=== PATIENT | female | born 1970 | race Two or more races ===

== ENCOUNTER 2024-04-07 13:23 | Outpatient (AMB) | payer MEDICAID, SELFPAY ==
[2024-04-07 13:40] VITALS: BP 117/78; PULSE 81; RESP 18; TEMP 35.7; O2SAT 96; BMI 38.9
--- NOTE | 2024-04-07 13:40 | PD.ORTHCLVIS ---
Vital signs 04/07/24 13:40 Height 1.63 m Height Method Stated Weight 102.965 kg Weight Measurement Method Standing Scale BMI 38.9 BP 117/78 Blood Pressure Source Automatic Cuff Blood Pressure Location Left Upper Arm Position Sitting Respiration 18 Pulse 81 Pulse Source Monitor Temp 96.3 F L Temp Source Temporal Artery Scan Pulse Oximetry (%) 96 Oxygen Delivery Method Room Air Med/Allergies Allergies & Medications Allergies No Known Allergies Allergy (Verified 04/07/24 13:44) Medication Reconciliation fluticasone propionate 115 mcg-salmeterol 21 mcg/actuation HFA inhaler (Advair HFA) 2 puff inhalation BID ##0 05/15/13 [History Confirmed 04/07/24] levalbuterol tartrate 45 mcg/actuation aerosol inhaler (Xopenex HFA) 2 puff inhalation Q4-6HRPRN #0 puffs 05/15/13 [History Confirmed 04/07/24] albuterol sulfate 90 mcg/actuation aerosol inhaler 2 puff inhalation Q6H PRN Wheezing 02/19/22 [History Confirmed 04/07/24] docusate sodium 100 mg capsule (Colace) 100 mg PO BID #40 caps 02/20/22 [Rx Confirmed 04/07/24] hydrocodone 5 mg-acetaminophen 325 mg tablet 1 tab PO Q6H PRN pain (scale score 7-10) #20 tabs 02/20/22 [Rx Confirmed 04/07/24] ibuprofen 600 mg tablet 600 mg PO Q8H PRN pain (scale score 4-6) #15 tabs 02/20/22 [Rx Confirmed 04/07/24] Subjective Visit Visit for: new patient Immunization / Flu Flu Vaccine in the Last 12 Months: Yes Flu Vaccine Exclusion Criteria: Already Received History of Present Illness Chief complaint: Bilateral knee pain Patient is a pleasant 53-year-old female with bilateral knee pain. The pain is excruciating is affecting her quality life. She does have a history of diabetes and has an unknown A1c. She reports that she has been doing well with cortisone injections and had multiple in the past. She is also tried Voltaren cream as well as naproxen in the past Review of Systems Review of Systems: All systems negative unless otherwise noted in HPI. Exam Exam Patient is in no acute distress and is cooperative with the examination today. Breathing is nonlabored. In no respiratory distress. Bilateral extremities were evaluated and demonstrates sensation intact to light touch. Palpable pedal pulses are present. No significant edema is present. Bilateral hips were examined. The patient has no pain with log roll of the hips. Internal rotation to 30 degrees and external rotation to 30 degrees is painless. Negative FADIR. The left knee was examined. The left knee is in [varus] alignment. Range of motion from [0-115] degrees. Knee is stable to varus and valgus as well as AP translation with <5mm. Patient has a [negative] McMurrays. There is [no] pain with patellofemoral compression and [no] crepitus noted. The knee is [tender] to palpation [medially]. The right knee was also examined. The right knee is in [varus] alignment. Range of motion from [0-120] degrees. Knee is stable to varus and valgus as well as AP translation with <5mm. Patient has a [negative] McMurrays. There is [no] pain with patellofemoral compression and [no] crepitus noted. The knee is [tender] to palpation [medially]. Assessment and Plan Problem List (1) Degenerative arthritis of knee, bilateral: Status: Acute Plan: Patient is a pleasant 53-year-old male with bilateral knee pain and bilateral knee arthritis. We discussed nonoperative and operative options. I would like to see x-rays to see the severity of the arthritis. She is failed conservative treatment but she is awfully young. We will likely try continued conservative management. Office Procedures GNS Level of Care Nursing/Assessment Patient Status: Initial/New Patient Nursing Assessment/Reassesment: Medication Reconciliation, Update PMH in EMR and Vital Signs Coordination of Care: Complex Care and Chronic Disease 1-5, Education Complex Pt/Fam, Consent,records obtained, informed consent, Lab and Imaging orders, Results/Orders obtained and Staff clarify orders Special Needs: Language special needs New Patient Charge New Patient Point Assignment: [id number] New Patient Point Charge: HEAD OF SALES Level 3 ([id number]) Past Medical History Past Medical History Have you ever been diagnosed with any of the following: Neurological Problems Seizures: No Cardiology Problems Congestive Heart Failure: No Edema: No Cellulitis: No Varicose Veins: No Respiratory Problems Chronic Obstructive Pulmonary Disease (COPD): No (ASTHMA HAS INHALER) Pneumonia: Yes (HOSP 2012) Smoking: No Smoking Exposure: No Stomache/Intestinal Problems Hepatitis: No Gall Bladder Disease: Yes (LAP) Genital/Urinary Problems Renal Disease: No Reproductive Problems Previous Pregnancies: Yes (X4) Musculoskeletal Problems Arthritis: Yes Fractures: Yes (RIGHT HAND HAS METAL) Endocrine Problems Diabetes Mellitus Type 1: No Diabetes Mellitus Type 2: No (PRE DIABETES) Other Problems Hospitalization: Yes ([facility]) Shingles: No Falls: No Blood Transfusions: No Blood Transfusion Reaction: No Anesthesia Reactions: No Chemotherapy: No MRSA: No Chicken Pox: No Measles: No Mumps: No Cancer: No Surgical History Pacemaker: No
== END 2024-04-07 13:58 | disposition home or self-care (01) ==
PROVIDERS: PCP Family Medicine; Referring Provider Family Medicine; Supervising Provider Orthopaedic Surgery Adult Reconstructive Orthopaedic Surgery; Visit Provider Orthopaedic Surgery Adult Reconstructive Orthopaedic Surgery
DX: M17.0 Bilateral primary osteoarthritis of knee (principal); M25.562 Pain in left knee; M25.561 Pain in right knee
CPT/HCPCS: 99203; G0463

== ENCOUNTER 2024-04-24 08:09 | Outpatient (AMB) | payer MEDICAID, SELFPAY ==
[2024-04-24 08:47] VITALS: BP 129/87; PULSE 61; RESP 18; TEMP 36.3; O2SAT 97; BMI 38.9
--- NOTE | 2024-04-24 08:47 | ORTHONT_ITS ---
Vital signs 04/24/24 08:47 Height 1.63 m Height Method Stated Weight 103.447 kg Weight Measurement Method Standing Scale BMI 38.9 BP 129/87 H Blood Pressure Source Automatic Cuff Blood Pressure Location Right Upper Arm Position Sitting Respiration 18 Pulse 61 Pulse Source Monitor Temp 97.3 F Temp Source Temporal Artery Scan Pulse Oximetry (%) 97 Oxygen Delivery Method Room Air Med/Allergies Allergies & Medications Allergies No Known Allergies Allergy (Verified 04/24/24 08:47) Medication Reconciliation fluticasone propionate 115 mcg-salmeterol 21 mcg/actuation HFA inhaler (Advair H FA) 2 puff inhalation BID ##0 05/15/13 [History Confirmed 04/24/24] levalbuterol tartrate 45 mcg/actuation aerosol inhaler (Xopenex HFA) 2 puff inhalation Q4-6HRPRN #0 puffs 05/15/13 [History Confirmed 04/24/24] albuterol sulfate 90 mcg/actuation aerosol inhaler 2 puff inhalation Q6H PRN Wheezing 02/19/22 [History Confirmed 04/24/24] docusate sodium 100 mg capsule (Colace) 100 mg PO BID #40 caps 02/20/22 [Rx Confirmed 04/24/24] hydrocodone 5 mg-acetaminophen 325 mg tablet 1 tab PO Q6H PRN pain (scale score 7-10) #20 tabs 02/20/22 [Rx Confirmed 04/24/24] ibuprofen 600 mg tablet 600 mg PO Q8H PRN pain (scale score 4-6) #15 tabs 02/20/22 [Rx Confirmed 04/24/24] Subjective Visit Visit for: follow up visit, knee and x-rays Immunization / Flu Flu Vaccine in the Last 12 Months: No Flu Vaccine Exclusion Criteria: No Exclusion Criteria History of Present Illness Chief complaint: F/U XRAYS Patient is a pleasant 53-year-old female with bilateral knee pain. The pain is excruciating is affecting her quality life. She does have a history of diabetes and has an unknown A1c. She reports that she has been doing well with cortisone injections and had multiple in the past. She is also tried Voltaren cream as well as naproxen in the past Pain Pain level (0-10): 8 Pain duration: CONSTANT Pain location: inside (medial), outside (lateral) and anterior Pain quality: sharp Pain timing: increases with activity Associated signs & symptoms: other (specify) (SWELLING) Ambulatory data Ambulatory device: none Treatments Improvement with previous injections: No Improvement with PT: No Improvement with NSAIDS: n/a Review of Systems Review of Systems: All systems negative unless otherwise noted in HPI. Exam Exam Patient is in no acute distress and is cooperative with the examination today. Breathing is nonlabored. In no respiratory distress. Bilateral extremities were evaluated and demonstrates sensation intact to light touch. Palpable pedal pulses are present. No significant edema is present. Bilateral hips were examined. The patient has no pain with log roll of the hips. Internal rotation to 30 degrees and external rotation to 30 degrees is painless. Negative FADIR. The left knee was examined. The left knee is in [varus] alignment. Range of motion from [0-115] degrees. Knee is stable to varus and valgus as well as AP translation with <5mm. Patient has a [negative] McMurrays. There is [no] pain with patellofemoral compression and [no] crepitus noted. The knee is [tender] to palpation [medially]. The right knee was also examined. The right knee is in [varus] alignment. Range of motion from [0-120] degrees. Knee is stable to varus and valgus as well as AP translation with <5mm. Patient has a [negative] McMurrays. There is [no] pain with patellofemoral compression and [no] crepitus noted. The knee is [tender] to palpation [medially]. Patient has bilateral knee osteoarthritis with complete joint space obliteration medially. Assessment and Plan Problem List (1) Degenerative arthritis of knee, bilateral: Status: Acute Plan: Patient is a pleasant 53-year-old male with bilateral knee pain and bilateral knee arthritis. We discussed nonoperative and operative options. IPatient has severe arthritis. We will do bilateral knee injections today Recommend knee cortisone injections as patient would like to proceed with conservative treatment at this time. The risks and benefits of the procedure were reviewed with the patient and patient gave verbal consent to continue with the procedure. Procedure: performed by Dr. Mccormack Using sterile technique the Bilateral knees were thoroughly prepped with alcohol, and approximately 1 cc of Kenalog 40 mg/mL and 4 cc of 1% lidocaine was injected into each knee without resistance into the medial tibial femoral joint space. The patient tolerated the procedure. Office Procedures GNS Level of Care Nursing/Assessment Patient Status: Established Patient Nursing Assessment/Reassesment: Medication Reconciliation, Update PMH in EMR and Vital Signs Coordination of Care: Complex Care and Chronic Disease 1-5, Education Complex Pt/Fam, Consent,records obtained, informed consent, Results/Orders obtained and Staff clarify orders Special Needs: Language special needs Established Patient Charge Established Patient Point Assignment: 95 Established Patient Point Charge: EP Level 3 (80-115) Surgical Proc/IM SQ injection Major Surgical Procedure: Yes (BILATERAL KNEE INJECTION ) Medication Given Medication Given Medication Given: Yes Documented Dose Given: 8 Route: Infiitration Medication Given Medication Given Medication Given: Yes Documented Dose Given: 2 Route: Infiitration Office Meds Xylocaine 10 mg/mL (1 %) injection solution Performing Provider: Charlie Mccormack MD Performing Location: [facility] Administered by: Charlie Mccormack MD on 04/24/24 11:57 Dose Route Admin Location Dispensed Lot Number Expiration Date [facility] Supervisor Riveting 40 mL Infiltration 40 mL [id number] [facility] triamcinolone acetonide 40 mg/mL suspension for injection Performing Provider: Charlie Mccormack MD Performing Location: [facility] Administered by: Charlie Mccormack MD on 04/24/24 11:57 Dose Route Admin Location Dispensed Lot Number Expiration Date [facility] Supervisor [employer]eting 80 mg intra-articular 2 mL [id number] [employer] Past Medical History Past Medical History Have you ever been diagnosed with any of the following: Neurological Problems Seizures: No Cardiology Problems Congestive Heart Failure: No Edema: No Cellulitis: No Varicose Veins: No Respiratory Problems Chronic Obstructive Pulmonary Disease (COPD): No (ASTHMA HAS INHALER) Pneumonia: Yes (HOSP 2012) Smoking: No Smoking Exposure: No Stomache/Intestinal Problems Hepatitis: No Gall Bladder Disease: Yes (LAP) Genital/Urinary Problems Renal Disease: No Reproductive Problems Previous Pregnancies: Yes (X4) Musculoskeletal Problems Arthritis: Yes Fractures: Yes (RIGHT HAND HAS METAL) Endocrine Problems Diabetes Mellitus Type 1: No Diabetes Mellitus Type 2: No (PRE DIABETES) Other Problems Hospitalization: Yes ([facility]) Shingles: No Falls: No Blood Transfusions: No Blood Transfusion Reaction: No Anesthesia Reactions: No Chemotherapy: No MRSA: No Chicken Pox: No Measles: No Mumps: No Cancer: No Surgical History Pacemaker: No
== END 2024-04-24 09:27 | disposition home or self-care (01) ==
LOC: HODSRG 08:09
PROVIDERS: PCP Family Medicine; Referring Provider Family Medicine; Supervising Provider Orthopaedic Surgery Adult Reconstructive Orthopaedic Surgery; Visit Provider Orthopaedic Surgery Adult Reconstructive Orthopaedic Surgery
DX: M17.0 Bilateral primary osteoarthritis of knee (principal); M25.562 Pain in left knee; M25.561 Pain in right knee; E11.9 Type 2 diabetes mellitus without complications
CPT/HCPCS: 20610; 99213; J3301; J3490; G0463

== ENCOUNTER 2024-06-29 14:59 | Emergency (ER) | payer MEDICAID, SELFPAY ==
[2024-06-29 15:01] VITALS: BMI 37.4
[2024-06-29 15:22] VITALS: BP 112/74; PULSE 110; RESP 20; TEMP 37.4; O2SAT 97
--- NOTE | 2024-06-29 15:39 | XR_ITS ---
Examination: Abdomen sonogram, Limited Date and time of exam: June 29, 2024 6 1557 hours INDICATIONS: Right-sided abdominal pain nausea vomiting beginning 3 days ago Technique: Real-time andrew scale transabdominal sonographic images of the upper abdomen obtained. Findings: Absent gallbladder Common bile duct 14 mm no definite stones Pancreatic head 3.1 cm Liver 17.8 cm fatty infiltration no focal liver lesions Normal hepatopedal portal venous flow Patent IVC IMPRESSION: Abnormally enlarged common bile duct 14 mm, consider MRCP follow-up to exclude common bile duct stricture and/or stone
[2024-06-29 15:57] LABS: Basophils % (Auto) 0 % (0-2.5); Eosinophils % (Auto) 0 % (0-10); Hematocrit 38.6 % (36.0-46.0); Immature Granulocytes % (Auto) 0 % (0-0); Immature Granulocytes Auto 0.05 Thou/mm3 (0.00-0.00); Lymphocytes # (Auto) 2.1 Thou/mm3 (1.0-4.8); Lymphocytes % (Auto) 17 % (10-50); Mean Corpuscular HGB Conc 33.7 g/dl (31.0-37.0); Mean Corpuscular Hemoglobin 29.7 pg (25.0-35.0); Mean Corpuscular Volume 88 fL (80-100); Monocytes # (Auto) 1.1 Thou/mm3 (0.0-0.8); Monocytes % (Auto) 9 % (0-12); Neutrophils % (Auto) 73 % (37-80); Nucleated Red Blood Cell % 0 /100 WBC (0); Platelet Count 261 Thou/mm3 (140-440); RDW Standard Deviation 46.1 fL (36.4-46.3); Red Blood Count 4.37 Miln/mm3 (4.00-5.20); White Blood Count 12.2 Thou/mm3 (3.6-11.0)
[2024-06-29 16:07] LABS: Glucose Estimated Average 134 mg/dL (80-131); Hemoglobin A1C 6.3 % Hgb (4.8-6.0)
[2024-06-29] MEDS: METOCLOPRAMIDE INJ 5 MG/ML VIAL 2 ML 10 MG IM (16:19)
[2024-06-29 16:28] LABS: Alanine Aminotransferase 18 U/L (10-49); Albumin, Serum 4.3 gm/dL (3.5-5.0); Albumin/Globulin Ratio 1.2 (1.2-2.2); Alkaline Phosphatase 105 U/L (46-116); Anion Gap 10 (7-16); Aspartate Amino Transferase 14 U/L (0-34); BUN/Creatinine Ratio 10 Ratio (12-20); Bilirubin,Total 1.2 mg/dL (0.3-1.2); Blood Urea Nitrogen 9 mg/dL (9-23); Calcium 9.2 mg/dL (8.3-10.6); Calcium (Corrected) 9.2 mg/dL (8.5-10.1); Carbon Dioxide 23.3 mMol/L (20.0-31.0); Chloride 101 mMol/L (98-107); Creatinine (Component) 0.9 mg/dL (0.6-1.3); Estimated Creatinine Clearance 84.6 mL/min (>60); Globulin 3.7 gm/dL (2.3-3.5); Glucose 129 mg/dL (74-106); Lipase 35 U/L (12-53); Osmolality,Calculated 268 (275-295); Potassium 3.7 mMol/L (3.4-5.1); Sodium 134 mMol/L (136-145); eGFR > 60 See Note
[2024-06-29 16:37] LABS: Collection Type, Urine Clean Catch
[2024-06-29 16:51] LABS: HCG Qualitative,Urine Negative
[2024-06-29 17:32] LABS: Bacteria,Urine Rare; Bilirubin,Urine Negative (Negative); Blood,Urine 2+ (Negative); Clarity,Urine Turbid (Clear/Hazy); Color,Urine Yellow (Lt Yel-Yel); Glucose, Urine Negative (Negative); Hyaline Casts,Urine < 1 /hpf (0-1); Ketones,Urine 2+ (Negative); Leukocyte Esterase,Urine Positive (Negative); Nitrite,Urine Negative (Negative); Protein,Urine 2+ (Neg - Trace); RBC,Urine 7 /hpf (0-3); Specific Gravity,Urine 1.027 (1.001-1.035); Squamous Epithelial Cell,Urine 5 /hpf (0-5); WBC,Urine 245 /hpf (0-5)
[2024-06-29 17:35] LABS: Culture Indicated,Urine Yes
--- NOTE | 2024-06-29 18:07 | PD.EDRME ---
Rapid Medical Screening Exam RME Arrival date/time: 06/29/24 14:59 54-year-old female currently on Ozempic presents to the emergency department today stating she has had abdominal pain ongoing for 1 week Chief Complaint: Flu Like Symptoms Time Seen by Provider: 06/29/24 15:11 Vital signs: Vital Signs Temperature 99.3 F 06/29/24 15:22 Pulse Rate 110 H 06/29/24 15:22 Respiratory Rate 20 06/29/24 15:22 Blood Pressure 112/74 06/29/24 15:22 Pulse Oximetry (%) 97 06/29/24 15:22 Oxygen Delivery Method Room Air 06/29/24 15:22
--- NOTE | 2024-06-29 20:37 | PD.EDABDPN ---
ED Abdominal Pain RME/HPI General Chief Complaint: Flu Like Symptoms Stated complaint: FEVER/EARPAIN /VOMITING x 7 DAYS Time seen by provider: 06/29/24 15:11 Arrival date/time: 06/29/24 14:59 54 year old female present to emergency room with c/o of abdominal pain for 7 days. pt recently start on ozempic. pt report fever, vomiting and bodyaches. LOCATION: generalized throughout the entire abdomen and periumbilical region SEVERITY: Symptoms are described as being severe with limitations on activities of daily living QUALITY: Symptoms are described as being cramping CONTEXT: The patient is unable to identify any inciting events. DURATION/TIMING: The symptoms started approximately one day ago and have been waxing/waning but always present without ever completely resolving. ASSOCIATED SYMPTOMS: urgency, frequency, fever, vomiting, bodyaches MODIFYING FACTORS: The patient is unable to identify any alleviating or aggravating symptoms. PERTINENT ROS: no anorexia, no dizziness, chest pain, shortness of breath, back pain, rash, syncope/loc, flank pain, vag bleeding, discharge, dysuria, REVIEW OF SYSTEMS: See History of Present Illness - with the exception of those mentioned in the history of present illness, all other systems reviewed and reported as negative GENERAL: In general the patient is awake, interactive, in an emergency department gurney. HEAD/EYES/EARS/NOSE/THROAT: normo-cephalic, atraumatic, mucus membranes are moist, anicteric, palpebral conjunctiva is pink, trachea is midline. CARDIOVASCULAR: regular rate and regular rhythm, no murmurs, heart sounds are not distant, strong pulses in all four extremities that are equal and symmetric bilateral upper and lower extremities, normal capillary refill. CHEST/PULMONARY: normal chest rise and fall, good air movement, clear to auscultation bilaterally, normal inspiratory to expiratory ratios without evidence of respiratory distress. NECK: No midline/Paraspinal tenderness, no step off ROM/Strenght intact No Kernig and bruzinski sign. No trauma ABDOMEN: soft, generalized abdominal tenderness, no masses appreciated BACK: normal range of motion without pain. NEUROLOGICAL: cranio-facial features are symmetric, moves all four extremities equally without obvious limitations or weakness. EXTREMITY: no tenderness to palpation over the long bones or large joints of the bilateral upper and lower extremities, no joint swelling, no joint erythema, no signs of trauma, no unilateral leg swelling and no peripheral edema. SKIN: warm, dry, well-perfused, no jaundice, no rash, no telangiectasias or petechia. PSYCH: calm, cooperative, no evidence of psychosis or agitation RME / HPI RME / HPI narrative: 06/29/24 14:59 54-year-old female currently on Ozempic presents to the emergency department today stating she has had abdominal pain ongoing for 1 week Related Data Home Medications ?Medication ?Instructions ?Recorded ?Confirmed fluticasone propionate 115 2 puff inhalation BID ##0 05/15/13 04/24/24 mcg-salmeterol 21 mcg/actuation HFA inhaler (Advair HFA) levalbuterol tartrate 45 2 puff inhalation Q4-6HRPRN #0 05/15/13 04/24/24 mcg/actuation aerosol inhaler puffs (Xopenex HFA) albuterol sulfate 90 mcg/actuation 2 puff inhalation Q6H PRN Wheezing 02/19/22 04/24/24 aerosol inhaler Previous Rx's ?Medication ?Instructions ?Recorded docusate sodium 100 mg capsule 100 mg PO BID #40 caps 02/20/22 (Colace) hydrocodone 5 mg-acetaminophen 325 1 tab PO Q6H PRN pain (scale score 02/20/22 mg tablet 7-10) #20 tabs ibuprofen 600 mg tablet 600 mg PO Q8H PRN pain (scale 02/20/22 score 4-6) #15 tabs cephalexin 500 mg capsule 500 mg PO BID 7 days #14 caps 06/29/24 ondansetron 4 mg disintegrating 4 mg PO Q8H PRN nausea and 06/29/24 tablet vomiting #20 tabs Allergies Allergy/AdvReac Type Severity Reaction Status Date / Time No Known Allergies Allergy Verified 06/29/24 15:04 Course Course Course Narrative: Plan review labs, US Patient presenting with symptoms consistent with urinary tract infection. No evidence for pyelonephritis, nephrolithiasis, traumatic injury, other significant pathology. Urinalysis shows findings consistent with UTI.? test was obtained and was negative.? GC/C was not obtained at request of pt.? Provided prescription for antibiotics. Advised to followup with primary physician if has continued symptoms. Return to ER if has uncontrolled pain, high fever, concern for dehydration, flank pain or other concerns. Plan:? Prescribed keflex 500mg? UTI prevention was discussed including post coital voiding, copious fluids and daily cranberry juice. F/U with PCP if pain continues? ?Informed to return if having uncontrolled pain, high fever, concern for dehydration, flank pain or other concerns. Expressed understanding of and agreement with plan and all questions answered. Quality Measures none Orders Category Date Time Status US gall bladder Stat Exams 06/29/24 15:39 Completed A1C [Glycohemoglobin w (eAG)] Stat Lab 06/29/24 15:47 Completed CBC Stat Lab 06/29/24 15:47 Completed Comprehensive Metabolic Panel Stat Lab 06/29/24 15:47 Completed HCG Qualitative,Urine Stat Lab 06/29/24 16:20 Completed Lipase Stat Lab 06/29/24 15:47 Completed UA, C/S IF [Urinalysis, C/S if Indicated] Stat Lab 06/29/24 16:20 Completed Urine Culture Stat Lab 06/29/24 16:20 Received Ketorolac Inj [Toradol Inj] Med 06/29/24 20:26 Discontinued 30 mg IM X1 ONE Metoclopramide Inj [Reglan Inj] Med 06/29/24 15:39 Discontinued 10 mg IM X1 ONE cephALEXin [Keflex] Med 06/29/24 20:26 Discontinued 500 mg PO X1 ONE Reevaluation(s) Reevaluation #1: pt is feeling better after getting medication in ER. Vital Signs Vital signs: Vital Signs Temperature 99.3 F 06/29/24 15:22 Pulse Rate 110 H 06/29/24 15:22 Respiratory Rate 20 06/29/24 15:22 Blood Pressure 112/74 06/29/24 15:22 Pulse Oximetry (%) 97 06/29/24 15:22 Oxygen Delivery Method Room Air 06/29/24 15:22 Abdominal Pain MDM Patient data External records reviewed:: [facility] previous records Clinical information provided by:: none Social determinants that could affect healthcare access:: none Patient has the following chronic illnesses:: none How is presenting disease/condition affected by chronic disease/condition?: no chronic disease Evaluation data The following diagnostics were reviewed and interpreted by me:: lab results and radiology exam(s) Lab and/or radiology exams considered but not ordered:: none Interpretation Summary: US: Absent gallbladder Common bile duct 14 mm no definite stones Pancreatic head 3.1 cm Liver 17.8 cm fatty infiltration no focal liver lesions Normal hepatopedal portal venous flow Patent IVC IMPRESSION: Abnormally enlarged common bile duct 14 mm, consider MRCP follow-up to exclude common bile duct stricture and/or stone NO MRI available now. will come back to [facility] if sx worsen Cbc/cmp no acute findings urine possible UTI, first dose of keflex 500mg given prior to discharge Medications / Prescriptions Medications or Prescriptions considered but not ordered:: none Medication administrations:: Medication Administration History Discontinued Medications Cephalexin HCl (Cephalexin 250 Mg Capsule) 500 mg PO X1 ONE Stop: 06/29/24 20:27 Ketorolac Tromethamine (Ketorolac Inj 60 Mg/2 Ml Vial) 30 mg IM X1 ONE Stop: 06/29/24 20:27 Metoclopramide HCl (Metoclopramide Inj 5 Mg/Ml Vial 2 Ml) 10 mg IM X1 ONE; Protocol Stop: 06/29/24 15:40 Last Admin: 06/29/24 16:19 Dose: 10 mg Documented By: KF as stated above Consultations Consultation(s) initiated? (list below): No Diagnosis Differential diagnosis abdominal pain: abdominal pain, calculus of kidney, gastroenteritis, pancreatitis and other (UTI) Most likely diagnosis given after review of the tests above:: UTI, abd pain Admission Indicated Admission indicated?: not indicated Admission Request Was there a request for admission?: No Disposition Plan Disposition Plan: Discharge Discharge Attestation Discharge Attestation: The patient and all family members were given an opportunity to ask questions and understood the discharge instructions. Discharge instructions specifically effects, indications for sooner follow up or return to the emergency department, and the expected course of current diagnosis. Patient condition: Stable Discharge Plan Plan Patient Disposition: HOME (Self Care) Prescriptions/Referrals Prescriptions/Med Rec: New cephalexin 500 mg capsule 500 mg PO BID 7 Days Qty: 14 0RF ondansetron 4 mg tablet,disintegrating 4 mg PO Q8H PRN (Reason: nausea and vomiting) Qty: 20 0RF No Action levalbuterol tartrate [Xopenex HFA] 15 GM HFA aerosol inhaler 2 puff Inhalation Q4-6HRPRN Qty: 0 Advair HFA 115-21 mcg/actuation Hfa Aerosol Inhaler 2 puff inhalation BID Qty: 0 albuterol sulfate 90 mcg/actuation Hfa Aerosol Inhaler 2 puff INHALATION Q6H PRN (Reason: Wheezing) hydrocodone-acetaminophen 5-325 mg tablet 1 tab PO Q6H MDD 4 PRN (Reason: pain (scale score 7-10)) Qty: 20 0RF docusate sodium [Colace] 100 mg capsule 100 mg PO BID Qty: 40 0RF ibuprofen 600 mg tablet 600 mg PO Q8H PRN (Reason: pain (scale score 4-6)) Qty: 15 0RF Referrals: Brennen Han MD [Primary Care Provider] - In 1 week Problem List Clinical Impression: UTI (urinary tract infection), Abdominal pain Patient/Caregiver Discharge Instructions Education Materials: Abdominal Pain, Understanding Urinary Tract ... Print Language: [place] Citizen Stand Alone Forms: Ruthy Award Info., Patient Portal Info Letter
[2024-06-29] MEDS: KETOROLAC INJ 60 MG/2 ML VIAL 30 MG IM (20:42)
[2024-06-29] MEDS: cephALEXin 250 MG CAPSULE 500 MG PO (20:44)
== END 2024-06-29 20:51 | disposition home or self-care (01) ==
PROVIDERS: Nurse Practitioner Primary Care; Emergency Provider Emergency Medicine; PCP Family Medicine
DX: N39.0 Urinary tract infection, site not specified (principal); K76.0 Fatty (change of) liver, not elsewhere classified; K83.8 Other specified diseases of biliary tract
CPT/HCPCS: 36415; 76705; 80053; 81001; 81025; 83036; 83690; 85025; 87077; 87086; 87186; 96372; 99284; J1885; J2765; A9270

== ENCOUNTER 2024-07-28 09:00 | Outpatient (AMB) | payer MEDICAID, SELFPAY ==
[2024-07-28 09:14] VITALS: BP 124/79; PULSE 64; RESP 19; TEMP 36.3; O2SAT 97; BMI 37.1
--- NOTE | 2024-07-28 09:14 | PD.ORTHCLVIS ---
Vital signs 07/28/24 09:14 Height 1.65 m Height Method Stated Weight 101.208 kg Weight Measurement Method Standing Scale BMI 37.1 BP 124/79 Blood Pressure Source Automatic Cuff Blood Pressure Location Left Upper Arm Position Sitting Respiration 19 Pulse 64 Pulse Source Monitor Temp 97.3 F Temp Source Temporal Artery Scan Pulse Oximetry (%) 97 Oxygen Delivery Method Room Air Med/Allergies Allergies & Medications Allergies No Known Allergies Allergy (Verified 07/28/24 09:15) Medication Reconciliation fluticasone propionate 115 mcg-salmeterol 21 mcg/actuation HFA inhaler (Advair HFA) 2 puff inhalation BID ##0 05/15/13 [History Confirmed 07/28/24] levalbuterol tartrate 45 mcg/actuation aerosol inhaler (Xopenex HFA) 2 puff inhalation Q4-6HRPRN #0 puffs 05/15/13 [History Confirmed 07/28/24] albuterol sulfate 90 mcg/actuation aerosol inhaler 2 puff inhalation Q6H PRN Wheezing 02/19/22 [History Confirmed 07/28/24] docusate sodium 100 mg capsule (Colace) 100 mg PO BID #40 caps 02/20/22 [Rx Confirmed 07/28/24] hydrocodone 5 mg-acetaminophen 325 mg tablet 1 tab PO Q6H PRN pain (scale score 7-10) #20 tabs 02/20/22 [Rx Confirmed 07/28/24] ibuprofen 600 mg tablet 600 mg PO Q8H PRN pain (scale score 4-6) #15 tabs 02/20/22 [Rx Confirmed 07/28/24] ondansetron 4 mg disintegrating tablet 4 mg PO Q8H PRN nausea and vomiting #20 tabs 06/29/24 [Rx Confirmed 07/28/24] Exam Exam Patient is in no acute distress and is cooperative with the examination today. Breathing is nonlabored. In no respiratory distress. Bilateral extremities were evaluated and demonstrates sensation intact to light touch. Palpable pedal pulses are present. No significant edema is present. Bilateral hips were examined. The patient has no pain with log roll of the hips. Internal rotation to 30 degrees and external rotation to 30 degrees is painless. Negative FADIR. The left knee was examined. The left knee is in [varus] alignment. Range of motion from [0-115] degrees. Knee is stable to varus and valgus as well as AP translation with <5mm. Patient has a [negative] McMurrays. There is [no] pain with patellofemoral compression and [no] crepitus noted. The knee is [tender] to palpation [medially]. The right knee was also examined. The right knee is in [varus] alignment. Range of motion from [0-120] degrees. Knee is stable to varus and valgus as well as AP translation with <5mm. Patient has a [negative] McMurrays. There is [no] pain with patellofemoral compression and [no] crepitus noted. The knee is [tender] to palpation [medially]. Patient has bilateral knee osteoarthritis with complete joint space obliteration medially. Assessment and Plan Problem List (1) Degenerative arthritis of knee, bilateral: Status: Acute Plan: Patient is a pleasant 53-year-old male with bilateral knee pain and bilateral knee arthritis. We discussed nonoperative and operative options. Patient has severe arthritis. She would like repeat injections today as she had great relief with the last ones Recommend knee cortisone injections as patient would like to proceed with conservative treatment at this time. The risks and benefits of the procedure were reviewed with the patient and patient gave verbal consent to continue with the procedure. Procedure: performed by Dr. Mccormack Using sterile technique the Bilateral knees were thoroughly prepped with alcohol, and approximately 1 cc of Kenalog 40 mg/mL and 4 cc of 1% lidocaine was injected into each knee without resistance into the medial tibial femoral joint space. The patient tolerated the procedure. Office Procedures GNS Level of Care Nursing/Assessment Patient Status: Established Patient Nursing Assessment/Reassesment: Medication Reconciliation, Update PMH in EMR and Vital Signs Coordination of Care: Complex Care and Chronic Disease 1-5, Education Complex Pt/Fam, Consent,records obtained, informed consent, Results/Orders obtained and Staff clarify orders Special Needs: Language special needs Established Patient Charge Established Patient Point Assignment: 95 Established Patient Point Charge: EP Level 3 (80-115) Surgical Proc/IM SQ injection Major Surgical Procedure: Yes (BILATERAL KNEE INJECTION) Medication Given Medication Given Medication Given: Yes Documented Dose Given: 8 Route: Infiitration Medication Given Medication Given Medication Given: Yes Documented Dose Given: 2 Route: Infiitration Office Meds Xylocaine 10 mg/mL (1 %) injection solution Performing Provider: Charlie Mccormack MD Performing Location: [facility] Administered by: Charlie Mccormack MD on 07/28/24 09:26 Dose Route Admin Location Dispensed Lot Number Expiration Date [facility] Cargo [employer] Agent 40 mL Infiltration 40 mL [id number] 09/17/27 21573[facility]186-[facility] triamcinolone acetonide 40 mg/mL suspension for injection Performing Provider: Charlie Mccormack MD Performing Location: [facility] Administered by: Charlie Mccormack MD on 07/28/24 09:26 Dose Route Admin Location Dispensed Lot Number Expiration Date [facility] C[employer] Service Agent 80 mg intra-articular 2 mL [id number] 10/16/25 4785-2215-74 [employer] MA Intake Visit Data Collection New Patient or Established: Established Patient (seen at [facility] within 3 years) Reason for Visit:: BILATERAL KNEE INJ 3MTH F/U Seen by Clinical Staff ONLY (RN/MA): No Access Spec Required: Yes PCP or OBGYN visit in last 3 months: Yes Hx Now: No Do You Feel Safe at Home: Yes Authorities Contacted: N/A Questionairres Past Medical History Past Medical History Have you ever been diagnosed with any of the following: Neurological Problems Seizures: No Cardiology Problems Congestive Heart Failure: No Edema: No Cellulitis: No Varicose Veins: No Respiratory Problems Chronic Obstructive Pulmonary Disease (COPD): No (ASTHMA HAS INHALER) Pneumonia: Yes (HOSP 2012) Smoking: No Smoking Exposure: No Stomache/Intestinal Problems Hepatitis: No Gall Bladder Disease: Yes (LAP) Genital/Urinary Problems Renal Disease: No Reproductive Problems Previous Pregnancies: Yes (X4) Musculoskeletal Problems Arthritis: Yes Fractures: Yes (RIGHT HAND HAS METAL) Endocrine Problems Diabetes Mellitus Type 1: No Diabetes Mellitus Type 2: No (PRE DIABETES) Other Problems Hospitalization: Yes ([facility]) Shingles: No Falls: No Blood Transfusions: No Blood Transfusion Reaction: No Anesthesia Reactions: No Chemotherapy: No MRSA: No Chicken Pox: No Measles: No Mumps: No Cancer: No Surgical History Pacemaker: No Subjective Visit Visit for: follow up visit, knee (BILATERAL) and injections Immunization / Flu Flu Vaccine in the Last 12 Months: No Flu Vaccine Exclusion Criteria: No Exclusion Criteria History of Present Illness Chief complaint: Bilateral knee pain Patient is a pleasant 54-year-old female with bilateral knee pain and bilateral knee arthritis of significant severity. She had injections at the last visit and that lasted for more than 3 months. She would like new injections today Pain Pain level (0-10): 4 Pain duration: ON AND OFF Pain location: inside (medial) and anterior Pain quality: aching Pain timing: increases with activity Ambulatory data Ambulatory device: none Treatments Number of previous injections: 2 Improvement with previous injections: Yes Improvement with PT: No Improvement with NSAIDS: no Review of Systems Review of Systems: All systems negative unless otherwise noted in HPI.
== END 2024-07-28 09:26 | disposition home or self-care (01) ==
LOC: HODSRG 09:00
PROVIDERS: PCP Internal Medicine; Referring Provider Internal Medicine; Supervising Provider Orthopaedic Surgery Adult Reconstructive Orthopaedic Surgery; Visit Provider Orthopaedic Surgery Adult Reconstructive Orthopaedic Surgery
DX: M17.0 Bilateral primary osteoarthritis of knee (principal)
CPT/HCPCS: 20610; 99213; J3301; J3490; G0463

== ENCOUNTER 2024-09-14 14:38 | Inpatient (IN) | payer MEDICAID, SELFPAY ==
[2024-09-14] VITALS (12 sets, daily range): BP systolic 117–195; BP diastolic 61–98; PULSE 63–124; RESP 14–97; TEMP 37.1–40; O2SAT 94–100; BMI 41.5
--- NOTE | 2024-09-14 14:52 | PD.EDRME ---
Rapid Medical Screening Exam [facility] Arrival date/time: 09/14/24 14:38. 54-year-old female presents to the ED with complaints of nausea and vomiting described as tremulous to count with upper right and left abdominal pain. Chief Complaint: Abdominal Pain Vital signs: Vital Signs Temperature 98.8 F 09/14/24 14:46 Pulse Rate 114 H 09/14/24 14:46 Respiratory Rate 18 09/14/24 14:46 Blood Pressure 146/85 H 09/14/24 14:46 Pulse Oximetry (%) 96 09/14/24 14:46 Oxygen Delivery Method Room Air 09/14/24 14:46
--- NOTE | 2024-09-14 14:54 | EKG_ITS ---
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
[2024-09-14 15:44] LABS: Basophils # (Auto) 0.1 Thou/mm3 (0.0-0.2); Basophils % (Auto) 0 % (0-2.5); Eosinophils # (Auto) 4.2 Thou/mm3 (0.0-0.5); Eosinophils % (Auto) 20 % (0-10); Hematocrit 41.8 % (36.0-46.0); Hemoglobin 13.7 g/dL (12.0-16.0); Immature Granulocytes % (Auto) 1 % (0-0); Immature Granulocytes Auto 0.13 Thou/mm3 (0.00-0.00); Lymphocytes % (Auto) 9 % (10-50); Mean Corpuscular HGB Conc 32.8 g/dl (31.0-37.0); Mean Corpuscular Volume 92 fL (80-100); Monocytes # (Auto) 1.6 Thou/mm3 (0.0-0.8); Monocytes % (Auto) 7 % (0-12); Neutrophils # (Auto) 13.3 Thou/mm3 (1.8-7.7); Neutrophils % (Auto) 63 % (37-80); Nucleated Red Blood Cell % 0 /100 WBC (0); Platelet Count 239 Thou/mm3 (140-440); RDW Standard Deviation 50.4 fL (36.4-46.3); Red Blood Count 4.56 Miln/mm3 (4.00-5.20); White Blood Count 21.2 Thou/mm3 (3.6-11.0)
[2024-09-14 15:54] LABS: Collection Type, Urine Clean Catch
[2024-09-14 16:22] LABS: Alanine Aminotransferase 12 U/L (10-49); Albumin, Serum 4.4 gm/dL (3.5-5.0); Albumin/Globulin Ratio 1.1 (1.2-2.2); Alkaline Phosphatase 96 U/L (46-116); Anion Gap 11 (7-16); Aspartate Amino Transferase 12 U/L (0-34); BUN/Creatinine Ratio 8 Ratio (12-20); Bilirubin,Total 1.8 mg/dL (0.3-1.2); Blood Urea Nitrogen 11 mg/dL (9-23); Calcium 8.9 mg/dL (8.3-10.6); Calcium (Corrected) 8.9 mg/dL (8.5-10.1); Carbon Dioxide 23.9 mMol/L (20.0-31.0); Chloride 103 mMol/L (98-107); Creatinine (Component) 1.3 mg/dL (0.6-1.3); Estimated Creatinine Clearance 53.6 mL/min (>60); Globulin 3.9 gm/dL (2.3-3.5); Glucose 188 mg/dL (74-106); Lipase 28 U/L (12-53); Osmolality,Calculated 280 (275-295); Potassium 3.2 mMol/L (3.4-5.1); Sodium 138 mMol/L (136-145); Total Protein 8.3 gm/dL (5.7-8.2); Troponin I < 0.020 ng/mL (0.0-0.045); eGFR 49 See Note
[2024-09-14 16:25] LABS: Band Neutrophils (Manual) 1 % (0-6); Lymphocytes (Manual) 11 % (20-44); Monocytes (Manual) 5 % (2-9); Neutrophils (Manual) 83 % (50-70)
[2024-09-14 16:29] LABS: Bilirubin,Urine Negative (Negative); Blood,Urine Negative (Negative); Clarity,Urine Clear (Clear/Hazy); Color,Urine Lt-Yellow (Lt Yel-Yel); Glucose, Urine Negative (Negative); Ketones,Urine Negative (Negative); Leukocyte Esterase,Urine Negative (Negative); Nitrite,Urine Negative (Negative); Protein,Urine Negative (Neg - Trace); RBC,Urine 3 /hpf (0-3); Specific Gravity,Urine 1.024 (1.001-1.035); Squamous Epithelial Cell,Urine < 1 /hpf (0-5); Urobilinogen,Urine Negative mg/dL (0.0-1.0); WBC,Urine 1 /hpf (0-5)
--- NOTE | 2024-09-14 17:24 | XR_ITS ---
Examination: CT abdomen with intravenous contrast CT pelvis with intravenous contrast 2-D coronal reconstructions 2-D sagittal reconstructions Date and time of exam:September 14, 2024 1757 hours INDICATIONS: Vomiting and abdominal pain onset today. CTDI: vol (mGy) 16.8 DLP: (mGycm) 903 Technique: Multiple axial sections of the abdomen and pelvis have been obtained. 64 slice high-resolution scanner used. 3 mm axial sections have been obtained, post intravenous injection 60 cc Isovue 370 2-D sagittal, coronal reconstructions obtained. Low dose protocols were performed. One or more of the following dose reduction techniques were used; automated exposure control, adjustment of the mA and/or KV according to patient size, use of iterative reconstruction technique. Findings: Atelectasis versus pneumonia in the lower lobes Fatty infiltration throughout the liver, hepatomegaly 18 cm Absent gallbladder Common hepatic duct 14 mm No pancreatic or adrenal mass 5 mm posterior right renal calculus Edema in the right kidney, no hydronephrosis or ureteral calculi Aorta normal size Normal appendix No bowel obstruction No pelvic mass Urinary bladder wall thickening up to 5 mm A vascular stent L5-S1 IMPRESSION: Atelectasis versus pneumonia at the lung bases Enlarged common hepatic duct, consider hepatobiliary sonography follow-up 5 mm nonobstructing right renal calculus Right pyelonephritis. Cystitis pattern
--- NOTE | 2024-09-14 17:35 | XR_ITS ---
Examination: AP chest single view One AP portable upright chest single view Exam date and time: September 14, 2024 1609 hours Comparison May 15, 2013 INDICATIONS: Sepsis shortness of breath chest pain today. FINDINGS: Bilateral perihilar bibasilar pneumonia Atelectasis at both bases Normal heart size Prominent osteopenia IMPRESSION: Bilateral perihilar bibasilar pneumonia
--- NOTE | 2024-09-14 17:37 | EDNOTE_ITS ---
ED General RME/HPI General Chief complaint: Abdominal Pain Stated complaint: SENT BY PCP HR 125 BP 93/69 C/O ABDOMINAL PAIN Time Seen by Provider: 09/14/24 17:32 Arrival date/time: 09/14/24 14:38 CC: Left upper quadrant abdominal pain HPI ongoing for the past 2 days with nausea vomitings currently 8 out of 10 on a 10 scale no prior history of similar events. Patient also complaining of diarrhea. RME / HPI RME / HPI narrative: 09/14/24 14:38. 54-year-old female presents to the ED with complaints of nausea and vomiting described as tremulous to count with upper right and left abdominal pain. Related Data Home Medications ?Medication ?Instructions ?Recorded ?Confirmed fluticasone propionate 115 2 puff inhalation BID ##0 1 07/16/12 07/28/24 mcg-salmeterol 21 mcg/actuation HFA inhaler (Advair HFA) levalbuterol tartrate 45 2 puff inhalation Q4-6HRPRN #0 05/15/13 07/28/24 mcg/actuation aerosol inhaler puffs (Xopenex HFA) albuterol sulfate 90 mcg/actuation 2 puff inhalation Q 6H PRN Wheezing 02/19/22 07/28/24 aerosol inhaler Previous Rx's ?Medication ?Instructions ?Recorded docusate sodium 100 mg capsule 100 mg PO BID #40 caps 02/20/22 (Colace) hydrocodone 5 mg-acetaminophen 325 1 tab PO Q6H PRN pa in (scale score 02/20/22 mg tablet 7-10) #20 tabs ibuprofen 600 mg tablet 600 mg PO Q8H PRN pain (scal e 02/20/22 score 4-6) #15 tabs ondansetron 4 mg disintegrating 4 mg PO Q8H PRN nausea and 06/29/24 tablet vomiting #20 tabs Allergies Allergy/AdvReac Type Severity Reaction Status Date / Time No Known Allergies Allergy Verified 07/28/24 09:15 Review of Systems Review of Systems Narrative Review of Systems: GEN: + fever, no chills, no weight loss EYES: No discharge, no visual changes, no pain HEENT: No ear pain, no congestion, no sore throat PULM: No shortness of breath, no cough, no congestion CV: No chest pain, no dyspnea on exertion, no palpitations GI: + nausea, + vomiting, + diarrhea, no pain, no constipation : No frequency, no urgency, no dysuria MUSC/SKEL: No joint pain, no back pain SKIN: No rash PSYCH: No hallucinations, no depression HEME/LYMPH: No easy bleeding or bruising tendencies NEURO: No weakness, no headache ED Exam Narrative Physical exam: [General: Moderate discomfort not in any acute distress Head normocephalic HEENT: Eyes pupils are PERRLA EOMs are intact nose no rhinorrhea mouth pink dry membranes uvula is midline swallow symmetrical. Within acceptable limits Neck is supple nontender Chest equal chest rise nontender to palpation Respiratory: Clear to auscultation no wheezes crackles or rubs CV: Rate rhythm, tachycardic, is regular no murmurs rubs or clicks Abdomen is left upper quadrant abdominal pain with palpation reflexive guarding no rebound tenderness. Back: No CVA tenderness no spinous process tenderness from cervical spine thoracic and lumbar spine Skin: Intact no petechiae rash induration ulceration or crepitus Extremities: Moving all extremity against resistance cap refill less than 2 seconds neurosensory intact Neuro: Awake alert oriented x3 Glascow coma 15 no focal deficits] Course Course Course Narrative: Patient is 2 issues nausea vomiting with left lower quadrant abdominal pain in addition to mild shortness of breath sats oxygen saturation 88% chest x-ray looks like pneumonia we started her on Rocephin. Patient's case laboratory result findings imaging and the patient itself were assessed by , who is requesting an MRCP before admission. Quality Measures none Orders Category Date Time Status Bedside Influenza A&B Antigen Test NOW Care 09/14/24 17:[address] Screening NOW Care 09/14/24 17:24 Active Six Pack Packer STAT Care 09/14/24 17:35 Active Continuous Pulse Oximetry STAT Care 09/14/24 17:35 Completed EKG (ED ONLY) *Do not use* NOW Care 09/14/24 14:55 Completed In and Out Catheter X1PRN Care 09/14/24 17:35 Completed MRI Screening NOW Care 09/14/24 19:48 Active NPO STAT Care 09/14/24 17:35 Active Saline [Insert IV] NOW Care 09/14/24 17:34 Active Strict Intake and Output Routine Care 09/14/24 17:35 Ordered Consult to Gastroenterology Stat Cons 09/15/24 10:28 Ordered Referral - Relish Blender Stat Cons 09/15/24 10:[address] abdomen pelvis w con Stat Exams 09/14/24 17:24 Completed EKG (ED Only) Stat Exams 09/14/24 14:54 Draft MR MRCP Stat Exams 09/15/24 Completed XR chest 1V SEPSIS PROTOCOL Stat Exams 09/14/24 17:35 Completed B-Type Natriuretic Peptide Stat Lab 09/14/24 17:45 Completed Blood Culture (Lab) Stat Lab 09/14/24 17:50 Results CBC Stat Lab 09/14/24 15:33 Completed Comprehensive Metabolic Panel Stat Lab 09/14/24 15:33 Completed LDH (Lactate Dehydrogenase) Stat Lab 09/14/24 17:45 Completed Lactate (Lactic Acid) Stat Lab 09/14/24 17:45 Completed Lipase Stat Lab 09/14/24 15:33 Completed Lipid Panel Stat Lab 09/14/24 17:45 Completed Magnesium Stat Lab 09/14/24 17:45 Completed Partial Thromboplastin Time Stat Lab 09/14/24 17:45 Completed Phosphorous Stat Lab 09/14/24 17:45 Completed Prothrombin Time with INR Stat Lab 09/14/24 17:45 Completed Troponin I Stat Lab 09/14/24 15:33 Completed Troponin I Stat Lab 09/14/24 17:45 Completed Urinalysis Stat Lab 09/14/24 15:45 Completed Urine Culture Stat Lab 09/14/24 15:45 Received Acetaminophen Ivpb [Ofirmev Inj] Med 09/14/24 18:00 Discontinued 1,000 mg in 100 ml IV Q6HR Azithromycin Inj [Zithromax Inj] 500 mg Med 09/15/24 21:00 Discontinued Sodium Chloride 0.9% 250 ml [Ns] 250 ml IV HS Azithromycin Inj [Zithromax Inj] 500 mg Med 09/14/24 20:15 Discontinued Sodium Chloride 0.9% 250 ml [Ns] 250 ml IV X1 Morphine Inj Med 09/14/24 17:34 Discontinued 4 mg IVP X1 ONE Ondansetron Inj [Zofran Inj] Med 09/14/24 17:34 Discontinued 4 mg IV X1 ONE POTASSIUM CHL 10 mEq IVPB [Kcl Ivpb] Med 09/15/24 10:31 Discontinued 10 meq in 100 ml IV Q1H Piper/Tazo 3.375 gm Premix [Zosyn] Med 09/15/24 04:56 Discontinued 3.375 gm in 50 ml IV Q6HR Potassium Chloride [K-Dur] Med 09/15/24 09:10 Discontinued 40 meq PO X1 ONE Sodium Chloride 0.9% 1000 ml [Ns] 1,000 ml Med 09/14/24 19:51 Active IV 100 mls/hr Sodium Chloride 0.9% 1000 ml [Ns] 1,000 ml Med 09/14/24 17:34 Discontinued IV 999 mls/hr Sodium Chloride 0.9% 1000 ml [Ns] 1,000 ml Med 09/14/24 17:34 Discontinued IV 999 mls/hr cefTRIAXone/D5w 1gm IV premix [Rocephin/D5w 1gm IV Med 09/15/24 09:00 Discontinued premix] 1 gm in 50 ml IV QDAY cefTRIAXone/D5w 1gm IV premix [Rocephin/D5w 1gm IV Med 09/14/24 18:59 Discontinued premix] 1 gm in 50 ml IV X1 hydrALAZINE INJ [Apresoline Inj] Med 09/15/24 09:02 Discontinued 10 mg IV X1 ONE Oxygen Delivery NOW RT 09/14/24 17:35 Active Vital Signs Vital signs: Vital Signs Temperature 98.8 F 09/14/24 14:46 Pulse Rate 114 H 09/14/24 14:46 Respiratory Rate 18 09/14/24 14:46 Blood Pressure 146/85 H 09/14/24 14:46 Pulse Oximetry (%) 96 09/14/24 14:46 Oxygen Delivery Method Room Air 09/14/24 14:46 Discharge Plan Plan Patient Disposition: Admit Acute Care w/in Hospital Problem List Clinical Impression: Pneumonia, Abdominal pain, left upper quadrant, Nausea & vomiting, Leukocytosis, Hypoxemia MDM Patient Acuity High Acuity (complete MDM) Clinical Information Provided by: patient Medical Records reviewed [facility] Meds/Rx considered, not ordered None Labs/Rad/Tests considered, not ordered None Chronic Illness/Social Conditions which may negatively complicate care or outcome(s)-explain: None or not applicable EKG EKG Interpretation(s): EKG performed at 1515 shows a ventricular rate of 107 VA interval 133 QRS of 83 QTc of 401 the sinus tachycardia Labs Lab(s) Interpretation(s): CBC shows a leukocytosis of 21.2 no anemia thrombocytopenia, 1% bands. CMP shows potassium of 3.2 glucose of 188 no transaminitis but a T. bili of 1.8. Troponin is negative Lipase 28. Urine is negative for UTI. Medication Administration(s) Medication Administration History Acetaminophen (Acetaminophen 325 Mg Tablet) 650 mg PO Q6H PRN PRN Reason: Fever >100.4 or pain Stop: 10/15/24 11:39 Last Admin: 09/15/24 14:09 Dose: 650 mg Documented By: GM Enoxaparin Sodium (Enoxaparin Sod Inj 40 Mg/0.4 Ml Syringe) 40 mg SC QDAY [facility] Stop: 09/30/24 08:59 Sodium Chloride (Ns) 1,000 mls @ 100 mls/hr IV .Q10H [facility] Stop: 10/14/24 19:50 Last Admin: 09/15/24 17:19 Dose: 100 mls/hr Documented By: Infusion: 09/15/24 16:06 Dose: Infused Documented By: Admin: 09/15/24 06:06 Dose: 100 mls/hr Documented By: Infusion: 09/15/24 06:06 Dose: Infused Documented By: Admin: 09/14/24 21:00 Dose: 100 mls/hr Documented By: KUNAL Piperacillin/Tazobactam/Dextrose (Zosyn) 3.375 gm in 50 mls @ 12.5 mls/hr IV Q8HR LUIS A; Protocol Stop: 09/22/24 13:59 Last Admin: 09/15/24 21:27 Dose: 12.5 mls/hr Documented By: Infusion: 09/15/24 18:50 Dose: Infused Documented By: Admin: 09/15/24 14:50 Dose: 12.5 mls/hr Documented By: DRE Ondansetron HCl (Ondansetron Inj 2 Mg/Ml Inj 2 Ml) 4 mg IV Q6H PRN; Protocol PRN Reason: NAUSEA OR VOMITING Stop: 10/15/24 11:39 Last Admin: 09/15/24 14:05 Dose: 4 mg Documented By: DRE Discontinued Medications Hydralazine HCl (Hydralazine Inj 20 Mg/Ml Vial) 10 mg IV X1 ONE Stop: 09/15/24 09:03 Last Admin: 09/15/24 09:11 Dose: Not Given Documented By: GM Non-Admin Reason: Cancelled by Provider Sodium Chloride (Ns) 1,000 mls @ 999 mls/hr IV .Q1H1M ONE Stop: 09/14/24 18:34 Last Infusion: 09/14/24 19:23 Dose: Infused Documented By: Admin: 09/14/24 17:56 Dose: 999 mls/hr Documented By: PARRIS Sodium Chloride (Ns) 1,000 mls @ 999 mls/hr IV .Q1H1M ONE Stop: 09/14/24 18:34 Last Infusion: 09/14/24 19:23 Dose: Infused Documented By: Admin: 09/14/24 18:02 Dose: 999 mls/hr Documented By: PARRIS Acetaminophen (Ofirmev Inj) 1,000 mg in 100 mls @ 250 mls/hr IV Q6HR LUIS A Stop: 09/15/24 12:23 Last Admin: 09/15/24 12:12 Dose: Not Given Documented By: DRE Non-Admin Reason: Vital Signs Infusion: 09/15/24 10:26 Dose: Infused Documented By: Admin: 09/15/24 09:06 Dose: 250 mls/hr Documented By: Infusion: 09/15/24 03:55 Dose: Infused Documented By: Admin: 09/15/24 02:59 Dose: 250 mls/hr Documented By: Infusion: 09/14/24 19:23 Dose: Infused Documented By: Admin: 09/14/24 18:41 Dose: 250 mls/hr Documented By: PARRIS Ceftriaxone Sodium/Dextrose (Rocephin/D5w 1gm Iv Premix) 1 gm in 50 mls @ 100 mls/hr IV X1 ONE Stop: 09/14/24 19:28 Last Infusion: 09/14/24 21:08 Dose: Infused Documented By: Admin: 09/14/24 19:14 Dose: 100 mls/hr Documented By: PARRIS Azithromycin 500 mg/ Sodium (Chloride) 250 mls @ 250 mls/hr IV HS LUIS A Stop: 09/22/24 20:59 Ceftriaxone Sodium/Dextrose (Rocephin/D5w 1gm Iv Premix) 1 gm in 50 mls @ 100 mls/hr IV QDAY LUIS A Stop: 09/22/24 08:59 Azithromycin 500 mg/ Sodium (Chloride) 250 mls @ 250 mls/hr IV X1 ONE Stop: 09/14/24 21:14 Last Admin: 09/14/24 21:08 Dose: Not Given Documented By: EE Non-Admin Reason: Cancelled by Provider Piperacillin/Tazobactam/Dextrose (Zosyn) 3.375 gm in 50 mls @ 100 mls/hr IV Q6HR ONE Stop: 09/15/24 05:25 Last Infusion: 09/15/24 06:04 Dose: Infused Documented By: Admin: 09/15/24 05:28 Dose: 100 mls/hr Documented By: EF Potassium Chloride (Kcl Ivpb) 10 meq in 100 mls @ 100 mls/hr IV Q1H LUIS A Stop: 09/15/24 14:30 Last Admin: 09/15/24 18:21 Dose: 75 mls/hr Documented By: Infusion: 09/15/24 18:21 Dose: Infused Documented By: Admin: 09/15/24 17:12 Dose: 75 mls/hr Documented By: Infusion: 09/15/24 15:06 Dose: Infused Documented By: Admin: 09/15/24 13:46 Dose: 75 mls/hr Documented By: Infusion: 09/15/24 13:42 Dose: Infused Documented By: Admin: 09/15/24 12:22 Dose: 100 mls/hr Documented By: DRE Morphine Sulfate (Morphine Sulf Inj 10 Mg/Ml Vial) 4 mg IVP X1 ONE Stop: 09/14/24 17:35 Last Admin: 09/14/24 17:58 Dose: 4 mg Documented By: PARRIS Ondansetron HCl (Ondansetron Inj 2 Mg/Ml Inj 2 Ml) 4 mg IV X1 ONE; Protocol Stop: 09/14/24 17:35 Last Admin: 09/14/24 17:59 Dose: 4 mg Documented By: PARRIS Potassium Chloride (Potassium Chloride 20 Meq Tabcr) 40 meq PO X1 ONE Stop: 09/15/24 09:11 Last Admin: 09/15/24 10:23 Dose: 40 meq Documented By: DRE
--- NOTE | 2024-09-14 17:37 | PC.NURSE ---
SEPSIS ALERT CALLED
[2024-09-14] MEDS: SODIUM CHLORIDE 0.9% 1000 ML 1,000 ML 999 ML IV ×2 (17:56→18:02)
[2024-09-14] MEDS: MORPHINE SULF INJ 10 MG/ML VIAL 4 MG IVP (17:58)
[2024-09-14] MEDS: ONDANSETRON INJ 2 MG/ML INJ 2 ML 4 MG IV (17:59)
--- NOTE | 2024-09-14 18:12 | PC.NURSE ---
PT TAKEN TO CT VIA GURNEY. NS BOLUSES STOPPED FOR CT.
[2024-09-14 18:16] LABS: INR 1.2 (0.9-1.3); Partial Thromboplastin Time 31.9 Seconds (22.0-36.0)
--- NOTE | 2024-09-14 18:19 | PC.NURSE ---
JASPER AGARWAL INFORMED OF BP 195/98 AND PULSE 118. RECTAL TEMP WILL BE TAKEN WHEN PT RETURNS FROM CT.
[2024-09-14 18:25] LABS: B-Type Natriuretic Peptide 35 pg/mL (0-100)
[2024-09-14 18:26] LABS: Troponin I < 0.002 ng/mL (0.0-0.045)
[2024-09-14] MEDS: ACETAMINOPHEN IVPB 1,000 MG/100 ML VIAL 250 MG IV (18:41)
[2024-09-14 19:00] LABS: Cardiac Risk Estimate 2.2 RATIO (3.7-5.6); Cholesterol 143 mg/dL (132-200); HDL Cholesterol 66 mg/dL (40-60); LDH (Lactate Dehydrogenase) 281 U/L (120-246); LDL Cholesterol,Calculated 60 mg/dL (0-130); Magnesium 1.7 mg/dL (1.6-2.6); Phosphorous 3.1 mg/dL (2.4-5.1); Triglycerides 85 mg/dL (30-150)
[2024-09-14] MEDS: cefTRIAXone/D5w 1gm IV premix 1 GM/50 ML BAG IV (19:14)
[2024-09-14] MEDS: SODIUM CHLORIDE 0.9% 1000 ML 1,000 ML 100 ML IV (21:00)
--- NOTE | 2024-09-14 23:15 | EDNOTE_ITS ---
Emergency Room Addendum Addendum Narrative: 2300: Care assumed from Vishnu Yanez NP. Past medical, surgical, social and family history reviewed. Vitals and home medications reviewed. Results and treatment plan discussed. I will assume the care of the patient at this time and will follow the patient, pending MRCP in the AM. Please refer to the emergency department record for history and examination from initial visit. Patient is alert, awake and oriented x3 and is talking in full sentences. She does not have any rebound. The patient was placed in ED observation care at 09/14/24 at 2300 hours. The patient was placed in ED observation care because of pending MRCP. The patients past medical history, social history, and family history were reviewed. 0600: Care signed out to Dr. Marquez (emergency physician). Past medical, surgical, social and family history reviewed. Vitals and home medications re viewed. Results and treatment plan discussed. They will assume the care of the patient at this time and will follow the patient, pending MRCP. At this time, observation has ended.
[2024-09-15] VITALS (28 sets, daily range): BP systolic 111–161; BP diastolic 62–85; PULSE 75–122; RESP 16–95; TEMP 36.4–39.6; O2SAT 92–100; BMI 41.5
--- NOTE | 2024-09-15 | XR_ITS ---
MRI abdomen, without contrast. MRCP Date and time of exam: September 15, 2024 at 0708 hours INDICATIONS: Nausea vomiting elevated bilirubin on laboratory examination today, 1.8, enlarged common hepatic duct on CT abdomen pelvis September 14, 2024 Technique: Multiple axial and coronal images of the abdomen have been obtained with the Siemens 1.5T MRI scanner. Images obtained included T1 weighted transverse images, T2-weighted transverse images, T2-weighted transverse images fat-suppressed, T2 weighted haste fat suppressed transverse images, T1 weighted images, in and out of phase images, T2-weighted coronal images, breath hold, T2 weighted haze coronal images as well as T2 weighted coronal thick slab images, MRCP. Findings: Intrahepatic biliary tract dilatation Abnormal enlargement common hepatic duct 16 mm, abrupt termination of the distal common bile duct coronal image 14 without definite stone No obvious mass in the pancreatic head no pancreatic edema Hepatomegaly 21 cm No ascites No hydronephrosis Aorta normal size IMPRESSION: Abnormal extrahepatic biliary tract dilatation with abrupt termination of the distal common bile duct, differential would include malignant stricture at the ampulla Recommend ERCP follow-up with biopsies and stent placement
[2024-09-15] MEDS: ACETAMINOPHEN IVPB 1,000 MG/100 ML VIAL 250 MG IV ×2 (02:59→09:06)
[2024-09-15] MEDS: PIPER/TAZO 3.375 GM PREMIX 3.375 GM/50 ML BAG IV ×3 (05:28→21:27)
[2024-09-15] MEDS: SODIUM CHLORIDE 0.9% 1000 ML 1,000 ML 100 ML IV ×2 (06:06→17:19)
--- NOTE | 2024-09-15 06:13 | PD.EDADDENDU ---
Emergency Room Addendum <Julia Hackett - Last Filed: 09/15/24 13:16> Addendum Narrative: 0600: Care assumed from Dr. Vergara, the previous shift emergency physician. Past medical, surgical, social and family history reviewed. Vitals and home medications reviewed. I will assume the care of the patient at this time, pending MRCP and final disposition. Please refer to the emergency department record for history and examination from initial visit.? Physical exam by me shows patient under mild pain distress, she states the pain medications helped her. She has right upper quadrant tenderness. This morning patient is alert and awake MRCP came back with abrupt termination of the distal common bile duct with no stone or sludge visualized. Patient will need ERCP. While we have no GI on-call with ERCP privileges we did locate a local GI doctor who is willing to care for this patient Dr. Killian whom I spoke with and he will be consulting and the hospitalist will be admitting which is Dr. Mckeon. CRITICAL CARE: TIME: 60 minutes. They called a sepsis alert before my arrival and I spent another 30 minutes with consults. The high probability of sudden, clinically significant deterioration in the patient?s condition required the highest level of my preparedness to intervene urgently. The services I provided to this patient were to treat and/or prevent clinically significant deterioration. Services included the following: chart data review, reviewing nursing notes and/or old charts, documentation time, sales operations consultant collaboration regarding findings and treatment options, medication orders and management, direct patient care, vital sign assessments and ordering, interpreting and reviewing diagnostic studies and lab tests. Aggregate critical care time includes only time during which I was engaged in work directly related to the patient?s care, as described above, whether at bedside or elsewhere in the Emergency Department. It did not include time spent performing other reported procedures or the services of residents, students, nurses or physician assistants. RADIOLOGY Procedure(s): MR MRCP Accession Number(s): [id number] cc: Brennen Han MD; Vishnu Yanez FAMILY INTERVENTION SPECIALIST; Biju Esparza MD~ MRI abdomen, without contrast. MRCP Date and time of exam: September 15, 2024 at 0708 hours INDICATIONS: Nausea vomiting elevated bilirubin on laboratory examination today, 1.8, enlarged common hepatic duct on CT abdomen pelvis September 14, 2024 Technique: Multiple axial and coronal images of the abdomen have been obtained with the Siemens 1.5T MRI scanner. Images obtained included T1 weighted transverse images, T2-weighted transverse images, T2-weighted transverse images fat-suppressed, T2 weighted haste fat suppressed transverse images, T1 weighted images, in and out of phase images, T2-weighted coronal images, breath hold, T2 weighted haze coronal images as well as T2 weighted coronal thick slab images, MRCP. Findings: Intrahepatic biliary tract dilatation Abnormal enlargement common hepatic duct 16 mm, abrupt termination of the distal common bile duct coronal image 14 without definite stone No obvious mass in the pancreatic head no pancreatic edema Hepatomegaly 21 cm No ascites No hydronephrosis Aorta normal size IMPRESSION: Abnormal extrahepatic biliary tract dilatation with abrupt termination of the distal common bile duct, differential would include malignant stricture at the ampulla Recommend ERCP follow-up with biopsies and stent placement Dictated By: Biju Esparza MD <Turner Marquez MD - Last Filed: 09/15/24 17:15> Addendum Narrative: 0600: Care assumed from Dr. Vergara, the previous shift emergency physician. Past medical, surgical, social and family history reviewed. Vitals and home medications reviewed. I will assume the care of the patient at this time, pending MRCP and final disposition. Please refer to the emergency department record for history and examination from initial visit.? Physical exam by me shows patient under mild pain distress, she states the pain medications helped her. She has right upper quadrant tenderness. This morning patient is alert and awake MRCP came back with abrupt termination of the distal common bile duct with no stone or sludge visualized. Patient will need ERCP. While we have no GI on-call with ERCP privileges we did locate a local GI doctor who is willing to care for this patient Dr. Killian whom I spoke with and he will be consulting and the hospitalist will be admitting which is Dr. Mckeon RADIOLOGY Procedure(s): MR MRCP Accession Number(s): [id number] cc: Brennen Han MD; Vishnu Yanez NP; Biju Esparza MD~ MRI abdomen, without contrast. MRCP Date and time of exam: September 15, 2024 at 0708 hours INDICATIONS: Nausea vomiting elevated bilirubin on laboratory examination today, 1.8, enlarged common hepatic duct on CT abdomen pelvis September 14, 2024 Technique: Multiple axial and coronal images of the abdomen have been obtained with the Siemens 1.5T MRI scanner. Images obtained included T1 weighted transverse images, T2-weighted transverse images, T2-weighted transverse images fat-suppressed, T2 weighted haste fat suppressed transverse images, T1 weighted images, in and out of phase images, T2-weighted coronal images, breath hold, T2 weighted haze coronal images as well as T2 weighted coronal thick slab images, MRCP. Findings: Intrahepatic biliary tract dilatation Abnormal enlargement common hepatic duct 16 mm, abrupt termination of the distal common bile duct coronal image 14 without definite stone No obvious mass in the pancreatic head no pancreatic edema Hepatomegaly 21 cm No ascites No hydronephrosis Aorta normal size
[2024-09-15] MEDS: POTASSIUM CHLORIDE 20 mEq TABCR 40 MEQ PO (10:23)
--- NOTE | 2024-09-15 10:25 | PC.CM ---
Addendum entered by Katja Rouse RN 09/15/24 12:23: 1110 I received a call form Dr. Marquez and he stated Dr. Killian has agreed to accept patient so transfer has been canceled. I called [facility] transfer center and I canceled the transfer request. Addendum entered by Katja Rouse RN 09/15/24 10:41: 1025 I contacted [facility] and I initiated a transfer. I faxed over all information. Original Note: 1003 I received a referal to transfer patient for ERCP. I will contacted [facility] and initiated a transfer. I asked Dr. Marquez to follow up with Dr. Killian to see if he could help with doing an ERCP.
[2024-09-15] MEDS: POTASSIUM CHL 10 mEq IVPB 10 MEQ/100 ML BAG 100 MEQ IV (12:22)
--- NOTE | 2024-09-15 12:36 | PC.SS ---
Initial assessment: this is 54 year old female pending admission to med/tele. The patient is Armenian speaking, spouse Jose at bed side. Patient confirmed demographic information. Patient resides with spouse and son at home. Patient assigned her as her emergency contact. Patient reports being independent with ADL's. Patient denies the use of DME at home. Patient reports following provider Matt at [facility] for primary care. Pharmacy of choice is [facility]. Patient would like to discharge home once medically cleared, however is pending possible HLOC transfer. D/c plan: home vs transfer Next of kin: spouse, Jose
--- NOTE | 2024-09-15 13:45 | ESHP_ITS ---
<Statement entered by Becky Sandra MD - 09/15/24 16:27> The patient is a 54-year-old female with no significant past medical history who presented to the emergency department with a 3-day history of nausea, vomiting, abdominal discomfort, and fever. Symptoms progressively worsened prior to arrival. On presentation, the patient was found to be septic with an elevated white blood cell count and a lactic acid level of 2.0. Total bilirubin was elevated at 1.8. She received fluid resuscitation and was started on IV antibiotics. CT abdomen/pelvis revealed findings consistent with right-sided pyelonephritis and a dilated common bile duct. MRCP demonstrated a common bile duct measuring 14 mm with abrupt distal termination, raising concern for an obstructive process. No definitive stone was visualized. GI was consulted in the ED and recommended admission for further evaluation and management. Differential diagnosis includes biliary obstruction secondary to stricture versus mass or other etiologies. ERCP is planned for tomorrow. Plan: Admit for further management of abdominal pain and sepsis. Continue IV fluids and antibiotics. Monitor labs including WBC, liver function tests, and lactic acid. Proceed with ERCP to evaluate and treat possible biliary obstruction. Continue supportive care and reassess daily. Documentation for date of: 09/15/24 HPI History of Present Illness Chief complaint: Nausea, vomiting, fever History of present illness: 54 y/o F without significant medical history presents with chief complaint of nausea and vomiting with associated fevers. Patient has had symptoms for past 3 days. Patient also has abdominal pain. Symptoms are exacerbated by eating. Emesis is nonbloody. Patient has history of cholecystectomy 8-10 years ago. Patient denies dysuria, urinary incontinence or frequency, chest pain, shortness of breath, diarrhea. ED COURSE: Labs significant for: WBC 21.2, BUN 11, creatinine 1.3, EGFR 49 (baseline greater than 60), lactic acid 2, T. bili 1.8, LFTs otherwise normal. Urinalysis unremarkable. Imaging significant for: Chest x-ray showed possible bibasilar pneumonia. CT A/P showed right pyelonephritis, dilated common bile duct. MRCP showed common bile duct distention 14 mm with abrupt termination concerning for obstruction, no definitive stone. Patient received 2 L bolus plus maintenance fluids, Tylenol, ceftriaxone in the ED. PMH: None PSH: Cholecystectomy 8-10 years ago, multiple hernia surgeries, SH: Denies alcohol, tobacco, illicit drug use. Allergies:?NKDA Medications: Ozempic, albuterol Review of Systems Review of Systems Systems Reviewed: All systems reviewed, normal except as documented Past Medical History Past Medical History Comments PMH COMMENT: PMH: None PSH: Cholecystectomy 8-10 years ago, multiple hernia surgeries, SH: Denies alcohol, tobacco, illicit drug use. Allergies:?NKDA Medications: Ozempic, albuterol Exam Vital Signs Temp Pulse Resp BP Pulse Ox O2 Del Method O2 Flow Rate 98.2 F 81 19 127/71 96 Room Air 2 09/15/24 12:07 09/15/24 12:07 09/15/24 12:07 09/15/24 12:09/15/24 12:09/15/24 12:09/15/24 04:00 Narrative Exam PE: Gen: Well-developed and well-nourished. Obese. HEENT: NCAT, PERRLA, EOMI, MMM, anicteric conjunctivae. CVS: normal S1 and S2. RRR. No M/R/G. Resp: CTA B/L. No rhonchi, rales, crackles or wheezing. Abd: soft, non-distended. No CVA tenderness. Mild abdominal tenderness. MSK: Good ROM in BUE & BLE. No edema or rash. Neuro: CN II-XII grossly intact. Strength 5/5 in BUE & BLE. Alert and oriented x3. Psych: appropriate mood and affect. Results: Labs 09/16/24 05:47 09/16/24 05:47 Labs: Short CBC 09/14/24 Range/Units 15:33 WBC 21.2 H (3.6-11.0) Thou/mm3 Hgb 13.7 (12.0-16.0) g/dL Hct 41.8 (36.0-46.0) % Plt Count 239 (140-440) Thou/mm3 BMP 09/14/24 15:33 Sodium 138 Potassium 3.2 L Chloride 103 Carbon Dioxide 23.9 BUN 11 Creatinine 1.3 Glucose 188 H Calcium 8.9 Cardiac Enzymes 09/14/24 09/14/24 Range/Units 15:33 17:45 Troponin I < 0.020 < 0.002 (0.0-0.045) ng/mL Liver Function 09/14/24 Range/Units 15:33 Total Bilirubin 1.8 H (0.3-1.2) mg/dL AST 12 (0-34) U/L ALT 12 (10-49) U/L Alkaline Phosphatase 96 (46-116) U/L Albumin 4.4 (3.5-5.0) gm/dL Urine 09/14/24 Range/Units 15:45 Urine Color Lt-Yellow (Lt Yel-Yel) Urine Clarity Clear (Clear/Hazy) Urine pH 5.0 (5.0-7.0) Ur Specific Bertram 1.024 (1.001-1.035) Urine Protein Negative (Neg - Trace) Urine Glucose (UA) Negative (Negative) Quality Measures Quality Measures VTE prophylaxis Medications Home Medications and Allergies Home Medications ?Medication ?Instructions ?Recorded ?Confirmed ?Type fluticasone propionate 115 2 puff inhalation BID ##0 1 07/16/12 07/28/24 History mcg-salmeterol 21 mcg/actuation HFA inhaler (Advair HFA) levalbuterol tartrate 45 2 puff inhalation Q4-6HRPRN #0 05/15/13 07/28/24 History mcg/actuation aerosol inhaler puffs (Xopenex HFA) albuterol sulfate 90 mcg/actuation 2 puff inhalation Q 6H PRN Wheezing 02/19/22 09/16/24 History aerosol inhaler cetirizine 10 mg tablet mg 09/16/24 History semaglutide 0.25 mg or 0.5 mg (2 mg subcut 09/16/24 H istory mg/3 mL) subcutaneous pen injector (Ozempic) Allergies Allergy/AdvReac Type Severity Reaction Status Date / Time No Known Allergies Allergy Verified 07/28/24 09:15 Visit Medications Acetaminophen (Acetaminophen 325 Mg Tablet) 650 mg PO Q6H PRN PRN Reason: Fever >100.4 or pain Stop: 10/15/24 11:39 Sodium Chloride (Ns) 1,000 mls @ 100 mls/hr IV .Q10H LUIS A Stop: 10/14/24 19:50 Last Admin: 09/15/24 06:06 Dose: 100 mls/hr Potassium Chloride (Kcl Ivpb) 10 meq in 100 mls @ 100 mls/hr IV Q1H LUIS A Stop: 09/15/24 14:30 Last Admin: 09/15/24 12:22 Dose: 100 mls/hr Piperacillin/Tazobactam/Dextrose (Zosyn) 3.375 gm in 50 mls @ 12.5 mls/hr IV Q8HR LUIS A; Protocol Stop: 09/22/24 13:59 Ondansetron HCl (Ondansetron Inj 2 Mg/Ml Inj 2 Ml) 4 mg IV Q6H PRN; Protocol PRN Reason: NAUSEA OR VOMITING Stop: 10/15/24 11:39 Discontinued Medications Hydralazine HCl (Hydralazine Inj 20 Mg/Ml Vial) 10 mg IV X1 ONE Stop: 09/15/24 09:03 Last Admin: 09/15/24 09:11 Dose: Not Given Sodium Chloride (Ns) 1,000 mls @ 999 mls/hr IV .Q1H1M ONE Stop: 09/14/24 18:34 Last Infusion: 09/14/24 19:23 Dose: Infused Sodium Chloride (Ns) 1,000 mls @ 999 mls/hr IV .Q1H1M ONE Stop: 09/14/24 18:34 Last Infusion: 09/14/24 19:23 Dose: Infused Acetaminophen (Ofirmev Inj) 1,000 mg in 100 mls @ 250 mls/hr IV Q6HR LUIS A Stop: 09/15/24 12:23 Last Admin: 09/15/24 12:12 Dose: Not Given Ceftriaxone Sodium/Dextrose (Rocephin/D5w 1gm Iv Premix) 1 gm in 50 mls @ 100 mls/hr IV X1 ONE Stop: 09/14/24 19:28 Last Infusion: 09/14/24 21:08 Dose: Infused Azithromycin 500 mg/ Sodium (Chloride) 250 mls @ 250 mls/hr IV HS LUIS A Stop: 09/22/24 20:59 Ceftriaxone Sodium/Dextrose (Rocephin/D5w 1gm Iv Premix) 1 gm in 50 mls @ 100 mls/hr IV QDAY LUIS A Stop: 09/22/24 08:59 Azithromycin 500 mg/ Sodium (Chloride) 250 mls @ 250 mls/hr IV X1 ONE Stop: 09/14/24 21:14 Last Admin: 09/14/24 21:08 Dose: Not Given Piperacillin/Tazobactam/Dextrose (Zosyn) 3.375 gm in 50 mls @ 100 mls/hr IV Q6HR ONE Stop: 09/15/24 05:25 Last Infusion: 09/15/24 06:04 Dose: Infused Morphine Sulfate (Morphine Sulf Inj 10 Mg/Ml Vial) 4 mg IVP X1 ONE Stop: 09/14/24 17:35 Last Admin: 09/14/24 17:58 Dose: 4 mg Ondansetron HCl (Ondansetron Inj 2 Mg/Ml Inj 2 Ml) 4 mg IV X1 ONE; Protocol Stop: 09/14/24 17:35 Last Admin: 09/14/24 17:59 Dose: 4 mg Potassium Chloride (Potassium Chloride 20 Meq Tabcr) 40 meq PO X1 ONE Stop: 09/15/24 09:11 Last Admin: 09/15/24 10:23 Dose: 40 meq Assessment & Plan Plan 54 y/o F without significant medical history presents with chief complaint of nausea and vomiting with associated fevers, admitted for pyelonephritis and common bile duct obstruction. #Pyelonephritis Patient has pyelonephritis based on CT, and complaint of nausea/vomiting with fever. Urinalysis unremarkable, urine culture ordered. Blood cultures ordered as well. - Zosyn 3.375 g IV every 8 hours - Urine and blood cultures, follow-up - Zofran 4 mg IV every 6 hours as needed for nausea/vomiting - Clear liquid diet #Common bile duct obstruction Patient has history of cholecystectomy 8-[address] A/P showed dilated common bile duct, MRCP showed common bile duct distention 14 mm with abrupt termination indicating obstruction. Dr. Killian consulted, planning ERCP tomorrow. Patient has mild abdominal tenderness, Lobato sign negative. - Zosyn as above - Dr. Killian consulted, appreciate recommendations - Plan for ERCP tomorrow DVT prophylaxis: Lovenox GI prophylaxis: None Diet: Clear liquid diet Lines: Peripheral IV Code status: Full code Plan of care discussed with senior resident Dr. Sandra PGY-[address] Mckeon. Marito Arce MD PGY?1 Attending Provider Attestation/Addendum Grace Argueta, DO, attest that I was physically present for the julio portions of the service and evaluated the patient with the resident and I reviewed and discussed the case with the resident and agree with the resident's findings and plans of care as documented above Patient is a 54-year-old female with past medical history of diabetes on Ozempic who presents to the ED with nausea, vomiting, fevers abdominal pain and poor p.o. intake for the past 3 days. The patient states that her pain appears to be consistent with postprandial pain. Patient had a cholecystectomy about 8 to 10 years ago. She otherwise denies any loss of appetite, dysuria, back pain, chest pain or shortness of breath. Patient states that her symptoms started with diarrhea, but last episode was about a day and a half ago. Patient was found to have a leukocytosis 21.[address] abdomen/pelvis shows left pyelonephritis. MRCP was also done showing Abnormal extrahepatic biliary tract dilatation with abrupt termination of the distal common bile duct, differential would include malignant stricture at the ampulla. GI was consulted from ED and plans for ERCP tomorrow. Patient does not have any CVA tenderness on exam. She states she has 1-2/10 pain in her RUQ. Will admit for hyperbilirubinemia likely secnodary to obstruction versus cholangitis vs Pyelonephritis. Will start on IV zosyn and f/u with blood and urine cultures. Will f/u with GI recommendations
[2024-09-15] MEDS: POTASSIUM CHL 10 mEq IVPB 10 MEQ/100 ML BAG 75 MEQ IV ×3 (13:46→18:21)
[2024-09-15] MEDS: ONDANSETRON INJ 2 MG/ML INJ 2 ML 4 MG IV (14:05)
[2024-09-15] MEDS: ACETAMINOPHEN 325 MG TABLET 650 MG PO (14:09)
[2024-09-16] VITALS (13 sets, daily range): BP systolic 115–155; BP diastolic 58–90; PULSE 68–110; RESP 15–21; TEMP 36–38.4; O2SAT 93–98; BMI 41.5
[2024-09-16] MEDS: ACETAMINOPHEN 325 MG TABLET 650 MG PO ×2 (00:11→20:04)
[2024-09-16] MEDS: SODIUM CHLORIDE 0.9% 1000 ML 1,000 ML 100 ML IV ×2 (03:19→13:00)
[2024-09-16] MEDS: PIPER/TAZO 3.375 GM PREMIX 3.375 GM/50 ML BAG IV ×3 (05:42→21:36)
[2024-09-16 06:11] LABS: Basophils % (Auto) 0 % (0-2.5); Eosinophils % (Auto) 0 % (0-10); Hemoglobin 11.5 g/dL (12.0-16.0); Immature Granulocytes % (Auto) 0 % (0-0); Immature Granulocytes Auto 0.03 Thou/mm3 (0.00-0.00); Lymphocytes # (Auto) 1.8 Thou/mm3 (1.0-4.8); Lymphocytes % (Auto) 17 % (10-50); Mean Corpuscular HGB Conc 32.9 g/dl (31.0-37.0); Mean Corpuscular Volume 91 fL (80-100); Monocytes # (Auto) 0.9 Thou/mm3 (0.0-0.8); Monocytes % (Auto) 9 % (0-12); Neutrophils # (Auto) 7.4 Thou/mm3 (1.8-7.7); Neutrophils % (Auto) 73 % (37-80); Nucleated Red Blood Cell % 0 /100 WBC (0); Platelet Count 184 Thou/mm3 (140-440); RDW Standard Deviation 49.4 fL (36.4-46.3); Red Blood Count 3.83 Miln/mm3 (4.00-5.20); White Blood Count 10.1 Thou/mm3 (3.6-11.0)
[2024-09-16 06:26] LABS: INR 1.1 (0.9-1.3); Partial Thromboplastin Time 24.1 Seconds (22.0-36.0); Prothrombin Time 12.1 Seconds (9.0-12.2)
[2024-09-16 06:51] LABS: Alanine Aminotransferase 18 U/L (10-49); Albumin, Serum 3.4 gm/dL (3.5-5.0); Albumin/Globulin Ratio 1.1 (1.2-2.2); Alkaline Phosphatase 87 U/L (46-116); Anion Gap 10 (7-16); Aspartate Amino Transferase 11 U/L (0-34); BUN/Creatinine Ratio 9 Ratio (12-20); Bilirubin,Total 0.5 mg/dL (0.3-1.2); Blood Urea Nitrogen 6 mg/dL (9-23); Calcium 8.2 mg/dL (8.3-10.6); Calcium (Corrected) 8.7 mg/dL (8.5-10.1); Carbon Dioxide 20.3 mMol/L (20.0-31.0); Chloride 112 mMol/L (98-107); Creatinine (Component) 0.7 mg/dL (0.6-1.3); Estimated Creatinine Clearance 99.5 mL/min (>60); Globulin 3.2 gm/dL (2.3-3.5); Glucose 115 mg/dL (74-106); Magnesium 1.8 mg/dL (1.6-2.6); Osmolality,Calculated 281 (275-295); Phosphorous 2.2 mg/dL (2.4-5.1); Potassium 3.6 mMol/L (3.4-5.1); Sodium 142 mMol/L (136-145); Total Protein 6.6 gm/dL (5.7-8.2); eGFR > 60 See Note
--- NOTE | 2024-09-16 13:30 | XR_ITS ---
Examination: ERCP Fluoroscopy 33 spot fluoroscopic films of the abdomen Exam date: September 16, 2024 1759 hours INDICATIONS: Vomiting nausea and elevated bilirubin on laboratory examination yesterday, abnormal enlargement common hepatic duct 16 mm with abrupt termination of the distal common bile duct on MRCP study yesterday. TECHNIQUE AND FINDINGS: 33 spot fluoroscopic films of the abdomen Fluoroscopy 1 hour 4 minutes, radiation dose 10.476 mCi Contrast opacification of common hepatic duct 21 mm Balloon sweeping of the common hepatic common bile duct Stent placement at completion of the procedure in satisfactory position IMPRESSION: ERCP as above
--- NOTE | 2024-09-16 14:27 | ESCONSULT_ITS ---
HPI Data of Consult Requesting Physician: Grace Mckeon DO Primary Care Provider: Brennen Han MD Consult Narrative History of present illness: 54-year-old female with no significant past medical history here with a 3-day history of nausea, vomiting, abdominal discomfort, and fever. Symptoms progressively worsened prior to arrival. On presentation, the patient was found to be septic with an elevated white blood cell count and a lactic acid level of 2.0. Total bilirubin was elevated at 1.8. She received fluid resuscitation and was started on IV antibiotics. CT abdomen/pelvis revealed findings consistent with right-sided pyelonephritis and a dilated common bile duct. MRCP demonstrated a common bile duct measuring 14 mm with abrupt distal termination, raising concern for an obstructive process. No definitive stone was visualized. suspecting cholangitis. . cc:: cc: Grace Mckeon DO Review of Systems Review of Systems Narrative Review of Systems: all reviewed Meds Home Medications and Allergies Home Medications ?Medication ?Instructions ?Recorded ?Confirmed ?Type fluticasone propionate 115 2 puff inhalation BID ##0 1 07/16/12 07/28/24 History mcg-salmeterol 21 mcg/actuation HFA inhaler (Advair HFA) levalbuterol tartrate 45 2 puff inhalation Q4-6HRPRN #0 05/15/13 07/28/24 History mcg/actuation aerosol inhaler puffs (Xopenex HFA) albuterol sulfate 90 mcg/actuation 2 puff inhalation Q 6H PRN Wheezing 02/19/22 09/16/24 History aerosol inhaler cetirizine 10 mg tablet mg 09/16/24 History semaglutide 0.25 mg or 0.5 mg (2 mg subcut 09/16/24 H istory mg/3 mL) subcutaneous pen injector (Ozempic) Allergies Allergy/AdvReac Type Severity Reaction Status Date / Time No Known Allergies Allergy Verified 07/28/24 09:15 Exam Vital Signs Temp Pulse Resp BP Pulse Ox O2 Del Method O2 Flow Rate 97.9 F 86 16 124/86 H 96 Room Air 1 09/16/24 12:00 09/16/24 12:00 09/16/24 12:09/16/24 12:00 09/16/24 12:00 09/16/24 12:09/15/24 15:59 Routine Abdominal Exam Comments: soft abdomen. no significant findings Results Labs 09/16/24 05:47 09/16/24 05:47 Labs: Short CBC 09/16/24 Range/Units 05:47 WBC 10.1 D (3.6-11.0) Thou/mm3 Hgb 11.5 L D (12.0-16.0) g/dL Hct 35.0 L (36.0-46.0) % Plt Count 184 D (140-440) Thou/mm3 BMP 09/16/24 05:47 Sodium 142 Potassium 3.6 Chloride 112 H Carbon Dioxide 20.3 BUN 6 L Creatinine 0.7 D Glucose 115 H D Calcium 8.2 L Liver Function 09/16/24 Range/Units 05:47 Total Bilirubin 0.5 D (0.3-1.2) mg/dL AST 11 (0-34) U/L ALT 18 (10-49) U/L Alkaline Phosphatase 87 (46-116) U/L Albumin 3.4 L D (3.5-5.0) gm/dL Assessment and Plan Additional Assessment & Plan Additional Plan: 54-year-old female with no significant past medical history who presented to the emergency department with a 3-day history of nausea, vomiting, abdominal discomfort, and fever. Symptoms progressively worsened prior to arrival, with an elevated white blood cell count and a lactic acid level of 2.0. Total bilirubin was elevated at 1.8. Suspecting cholangitis IV abx IVF ERCP+/- stent Will follow
[2024-09-16 15:49] LABS: Procalcitonin 0.41 ng/ml (0.0-0.49)
[2024-09-16] MEDS: RINGERS LACTATED 1000 ML 1,000 ML 125 ML IV (16:32)
[2024-09-16] MEDS: INDOMETHACIN 50 MG SUPP 100 MG PR (17:15)
--- NOTE | 2024-09-16 17:42 | SUR.PHASEI ---
Pt. arrived to recovery via gurney, eyes closed, VSS, no c/o pain or nausea at this time, pt. receiving 8 liters 02 via oxymask, lung sounds clear, equal expansion pita., report received from Dari BRITTON and Dr. Mays.
--- NOTE | 2024-09-16 17:55 | PD.RESPRO ---
Documentation for date of: 09/16/24 Subjective Subjective Interval history: No overnight events. Patient seen and examined at bedside, resting comfortably. Patient endorses minimal abdominal pain, denies nausea, vomiting, fever, chills, chest pain, shortness of breath. Patient had fever overnight 101.1. Received ERCP, showed distal narrowing of CBD, stent was placed. Continue with IV antibiotics. Exam Vital Signs Temp Pulse Resp BP Pulse Ox O2 Del Method O2 Flow Rate 97.9 F 86 16 124/86 H 96 Room Air 1 09/16/24 12:00 09/16/24 12:00 09/16/24 12:00 09/16/24 12:00 09/16/24 12:00 09/16/24 12:00 09/15/24 15:59 Narrative Exam PE: Gen: Well-developed and well-nourished. Obese. HEENT: NCAT, PERRLA, EOMI, MMM, anicteric conjunctivae. CVS: normal S1 and S2. RRR. No M/R/G. Resp: CTA B/L. No rhonchi, rales, crackles or wheezing. Abd: soft, non-distended. No CVA tenderness. Mild abdominal tenderness. MSK: Good ROM in BUE & BLE. No edema or rash. Neuro: CN II-XII grossly intact. Strength 5/5 in BUE & BLE. Alert and oriented x3. Psych: appropriate mood and affect. Objective Labs 09/16/24 05:47 09/16/24 05:47 Labs: Laboratory Results - last 24 hr 09/16/24 05:47 WBC 10.1 D RBC 3.83 L Hgb 11.5 L D Hct 35.0 L MCV 91 MCH 30.0 MCHC 32.9 RDW Std Deviation 49.4 H Plt Count 184 D Neut % (Auto) 73 Lymph % (Auto) 17 [place] % (Auto) 9 Eos % (Auto) 0 Baso % (Auto) 0 Neut # (Auto) 7.4 Lymph # (Auto) 1.8 [place] # (Auto) 0.9 H Eos # (Auto) 0.0 Baso # (Auto) 0.0 Immature Gran # (Auto) 0.03 H Absolute Nucleated RBC 0.00 Immature Gran % 0 Nucleated RBC % 0 PT 12.1 INR 1.1 APTT 24.1 Sodium 142 Potassium 3.6 Chloride 112 H Carbon Dioxide 20.3 Anion Gap 10 BUN 6 L Creatinine 0.7 D Estim Creat Clear Calc 99.5 eGFR > 60 BUN/Creatinine Ratio 9 L Glucose 115 H D Calculated Osmolality 281 Calcium 8.2 L Corrected Calcium 8.7 Phosphorus 2.2 L Magnesium 1.8 Total Bilirubin 0.5 D AST 11 ALT 18 Alkaline Phosphatase 87 Total Protein 6.6 Albumin 3.4 L D Globulin 3.2 Albumin/Globulin Ratio 1.1 L Procalcitonin 0.41 Quality Measures Quality Measures VTE prophylaxis Assessment & Plan Assessment Current Active Medications: Generic Name Dose Route Start Last Admin Trade Name Freq PRN Reason Stop Dose Admin Acetaminophen 650 mg 09/15/24 11:40 09/16/24 00:11 Acetaminophen 325 Mg Tablet PO 10/15/24 11:39 650 mg Q6H PRN Administration Fever >100.4 or pain Enoxaparin Sodium 40 mg 09/16/24 09:00 09/16/24 08:16 Enoxaparin Sod Inj 40 Mg/0.4 Ml Syringe SC 09/30/24 08:59 Not Given QDAY LUIS A Sodium Chloride 1,000 mls @ 100 mls/hr 09/14/24 19:51 09/16/24 13:00 Ns IV 10/14/24 19:50 100 mls/hr .Q10H LUIS A Administration Piperacillin/Tazobactam/Dextrose 3.375 gm in 50 mls @ 12.5 mls/hr 09/15/24 14:00 09/16/24 16:20 Zosyn IV 09/22/24 13:59 12.5 mls/hr Q8HR LUIS A Administration Protocol Lactated Ringer's 1,000 mls @ 125 mls/hr 09/16/24 16:38 09/16/24 16:32 Lactated Ringers IV 09/17/24 00:37 125 mls/hr .Q8H ONE Administration Ondansetron HCl 4 mg 09/15/24 11:40 09/15/24 14:05 Ondansetron Inj 2 Mg/Ml Inj 2 Ml IV 10/15/24 11:39 4 mg Q6H PRN Administration NAUSEA OR VOMITING Protocol Plan 54 y/o F without significant medical history presents with chief complaint of nausea and vomiting with associated fevers, admitted for pyelonephritis and common bile duct obstruction. #Pyelonephritis Patient has pyelonephritis based on CT, and complaint of nausea/vomiting with fever. Urinalysis unremarkable, urine culture ordered. Blood cultures ordered as well. Patient had fever overnight. WBCs downtrending, nausea and vomiting improved. - Zosyn 3.375 g IV every 8 hours - Urine and blood cultures, follow-up - Zofran 4 mg IV every 6 hours as needed for nausea/vomiting - Clear liquid diet, advance as tolerated #Common bile duct narrowing s/p stent placement Patient has history of cholecystectomy 8-[address] A/P showed dilated common bile duct, MRCP showed common bile duct distention 14 mm with abrupt termination indicating obstruction. Dr. Killian consulted, planning ERCP tomorrow. Patient has mild abdominal tenderness, Lobato sign negative. Patient received ERCP, found with narrowing of the distal common bile duct, stent was placed. Procedure well-tolerated. - Zosyn as above - Dr. Killian consulted, appreciate recommendations - Clear liquid diet, advance as tolerated DVT prophylaxis: Lovenox GI prophylaxis: None Diet: Clear liquid diet Lines: Peripheral IV Code status: Full code Plan of care discussed with senior resident Dr. Sandra PGY-[address] Mckeon. Marito Arce MD PGY?1 Attending Provider Attestation/Addendum Ellie, Garce Mckeon, , attest that I was physically present for the julio portions of the service and evaluated the patient with the resident and I reviewed and discussed the case with the resident and agree with the resident's findings and plans of care as documented above Patient seen and evaluated this AM. She continues to have 1-2/10 nonradiating epigastric pain. Pending ERCP today. She had a fever of 101.1 overnight. Will f/u with cultures and ERCP results. Continue with IV abx
[2024-09-16] MEDS: ACETAMINOPHEN IVPB 1,000 MG/100 ML VIAL 250 MG IV (18:00)
[2024-09-16] MEDS: fentaNYL CIT INJ 50 mCg/ML AMP 2ML 25 MCG IVP (18:16)
--- NOTE | 2024-09-16 18:26 | SUR.PHASEI ---
Called and gave report on pt. s/p surgery to Charito BRITTON on M/S unit.
--- NOTE | 2024-09-16 18:35 | SUR.PHASEI ---
Pt. transferred to room 359 via gurney, no c/o pain or nausea at this time, VSS, IV flushed and patentCharito RN assumed care of pt.
[2024-09-16] MEDS: NAPH,KPH MBDB 1 PACKET (1.5 GM) PO (20:04)
[2024-09-16] MEDS: RINGERS LACTATED 1000 ML 1,000 ML 250 ML IV (20:07)
--- NOTE | 2024-09-16 22:11 | PC.NURSE ---
Pt complaining of abdominal pain, MD Linares made aware, will put order in.
[2024-09-16] MEDS: KETOROLAC INJ 30 MG/ML VIAL 15 MG IVP (22:24)
[2024-09-17] VITALS (17 sets, daily range): BP systolic 140–197; BP diastolic 75–100; PULSE 45–81; RESP 15–95; TEMP 36–36.5; O2SAT 93–97
[2024-09-17] MEDS: RINGERS LACTATED 1000 ML 1,000 ML 250 ML IV ×5 (02:05→21:09)
[2024-09-17] MEDS: KETOROLAC INJ 30 MG/ML VIAL 15 MG IVP ×2 (04:33→10:04)
[2024-09-17] MEDS: PIPER/TAZO 3.375 GM PREMIX 3.375 GM/50 ML BAG IV ×3 (05:04→21:10)
[2024-09-17 10:00] LABS: Basophils % (Auto) 0 % (0-2.5); Eosinophils % (Auto) 0 % (0-10); Hematocrit 31.7 % (36.0-46.0); Hemoglobin 10.7 g/dL (12.0-16.0); Immature Granulocytes % (Auto) 0 % (0-0); Immature Granulocytes Auto 0.02 Thou/mm3 (0.00-0.00); Lymphocytes % (Auto) 18 % (10-50); Mean Corpuscular HGB Conc 33.8 g/dl (31.0-37.0); Mean Corpuscular Hemoglobin 30.1 pg (25.0-35.0); Mean Corpuscular Volume 89 fL (80-100); Monocytes # (Auto) 0.2 Thou/mm3 (0.0-0.8); Monocytes % (Auto) 3 % (0-12); Neutrophils # (Auto) 4.4 Thou/mm3 (1.8-7.7); Neutrophils % (Auto) 78 % (37-80); Nucleated Red Blood Cell % 0 /100 WBC (0); Platelet Count 201 Thou/mm3 (140-440); RDW Standard Deviation 46.6 fL (36.4-46.3); Red Blood Count 3.56 Miln/mm3 (4.00-5.20); White Blood Count 5.6 Thou/mm3 (3.6-11.0)
[2024-09-17] MEDS: ENOXAPARIN SOD INJ 40 MG/0.4 ML SYRINGE SC (10:02)
[2024-09-17 10:30] LABS: Alanine Aminotransferase 17 U/L (10-49); Albumin, Serum 3.3 gm/dL (3.5-5.0); Albumin/Globulin Ratio 1.1 (1.2-2.2); Alkaline Phosphatase 106 U/L (46-116); Anion Gap 12 (7-16); Aspartate Amino Transferase 12 U/L (0-34); BUN/Creatinine Ratio 20 Ratio (12-20); Bilirubin,Total 0.4 mg/dL (0.3-1.2); Blood Urea Nitrogen 14 mg/dL (9-23); Calcium 8.3 mg/dL (8.3-10.6); Calcium (Corrected) 8.9 mg/dL (8.5-10.1); Carbon Dioxide 20.6 mMol/L (20.0-31.0); Chloride 109 mMol/L (98-107); Creatinine (Component) 0.7 mg/dL (0.6-1.3); Estimated Creatinine Clearance 99.5 mL/min (>60); Glucose 234 mg/dL (74-106); Magnesium 1.7 mg/dL (1.6-2.6); Osmolality,Calculated 291 (275-295); Phosphorous 3.4 mg/dL (2.4-5.1); Potassium 3.7 mMol/L (3.4-5.1); Sodium 142 mMol/L (136-145); Total Protein 6.3 gm/dL (5.7-8.2); eGFR > 60 See Note
--- NOTE | 2024-09-17 11:52 | PD.RESPRO ---
Documentation for date of: 09/17/24 Subjective Subjective Interval history: Patient seen today at the bedside found awake, alert, oriented x 3. No overnight events reported. Complaining of 10 out of 10 abdominal pain, pain regimen adjusted Dilaudid was added. Vital signs and labs reviewed. Blood cultures grew gram-negative rods appropriately covered with current antibiotics. Spoke to GI in regards to patient's abdominal pain and recommended switching metal stent. Postop patient felt immediate relief and GI recommended to continue IV fluids at 250 cc/h. Exam Vital Signs Temp Pulse Resp BP Pulse Ox O2 Del Method O2 Flow Rate 97.3 F 52 L 16 150/76 H 95 Room Air 4 09/17/24 08:00 09/17/24 08:00 09/17/24 08:00 09/17/24 08:00 09/17/24 08:00 09/17/24 08:00 09/16/24 18:04 Narrative Exam Physical Exam GENERAL: NAD, AAOx3 HEENT: Moist mucosa. Eyes open, symmetrical, & clear CARDIO: Heart RRR, no obvious murmurs PULM: No noted coughing/dyspnea CTA B/L, no R/W/R GI: Abdomen soft, nondistended, pain on palpation SKIN/MSK/EXT: No wounds/rashes/edema/amputations, no pain on palpation. Pedal pulses present B/L NEURO: AAOx3, no focal neuro deficits, able to move all 4 extremities Objective Labs 09/18/24 07:25 09/18/24 05:33 Labs: Laboratory Results - last 24 hr 09/16/24 09/17/24 05:47 09:33 WBC 5.6 D RBC 3.56 L Hgb 10.7 L Hct 31.7 L MCV 89 MCH 30.1 MCHC 33.8 RDW Std Deviation 46.6 H Plt Count 201 Neut % (Auto) 78 Lymph % (Auto) 18 [place] % (Auto) 3 Eos % (Auto) 0 Baso % (Auto) 0 Neut # (Auto) 4.4 Lymph # (Auto) 1.0 [place] # (Auto) 0.2 Eos # (Auto) 0.0 Baso # (Auto) 0.0 Immature Gran # (Auto) 0.02 H Absolute Nucleated RBC 0.00 Immature Gran % 0 Nucleated RBC % 0 Sodium 142 Potassium 3.7 Chloride 109 H Carbon Dioxide 20.6 Anion Gap 12 BUN 14 Creatinine 0.7 Estim Creat Clear Calc 99.5 eGFR > 60 BUN/Creatinine Ratio 20 Glucose 234 H D Calculated Osmolality 291 Calcium 8.3 Corrected Calcium 8.9 Phosphorus 3.4 Magnesium 1.7 Total Bilirubin 0.4 AST 12 ALT 17 Alkaline Phosphatase 106 D Total Protein 6.3 Albumin 3.3 L Globulin 3.0 Albumin/Globulin Ratio 1.1 L Procalcitonin 0.41 Quality Measures Quality Measures VTE prophylaxis Assessment & Plan Assessment Current Active Medications: Generic Name Dose Route Start Last Admin Trade Name Freq PRN Reason Stop Dose Admin Acetaminophen 650 mg 09/15/24 11:40 09/16/24 20:04 Acetaminophen 325 Mg Tablet PO 10/15/24 11:39 650 mg Q6H PRN Administration Fever >100.4 or pain Enoxaparin Sodium 40 mg 09/16/24 09:00 09/17/24 10:02 Enoxaparin Sod Inj 40 Mg/0.4 Ml Syringe SC 09/30/24 08:59 40 mg QDAY LUIS A Administration Hydromorphone HCl 2 mg 09/17/24 10:20 Hydromorphone Inj 2 Mg/Ml Vial IVP 09/22/24 10:19 Q4HR PRN PAIN SCALE 7-10 (Severe Piperacillin/Tazobactam/Dextrose 3.375 gm in 50 mls @ 12.5 mls/hr 09/15/24 14:00 09/17/24 05:04 Zosyn IV 09/22/24 13:59 12.5 mls/hr Q8HR LUIS A Administration Protocol Lactated Ringer's 1,000 mls @ 250 mls/hr 09/16/24 18:13 09/17/24 10:33 Lactated Ringers IV 10/16/24 18:12 250 mls/hr .Q4H LUIS A Administration Ketorolac Tromethamine 15 mg 09/17/24 10:21 Ketorolac Inj 30 Mg/Ml Vial IVP 09/21/24 22:10 Q6HR PRN PAIN SCALE 4-6 (Moderate Ondansetron HCl 4 mg 09/15/24 11:40 09/15/24 14:05 Ondansetron Inj 2 Mg/Ml Inj 2 Ml IV 10/15/24 11:39 4 mg Q6H PRN Administration NAUSEA OR VOMITING Protocol Plan 54 y/o F without significant medical history presents with chief complaint of nausea and vomiting with associated fevers, admitted for pyelonephritis and common bile duct obstruction. #Acute pancreatitis #Common bile duct narrowing s/p stent placement Patient has history of cholecystectomy 8-[address] A/P showed dilated common bile duct, MRCP showed common bile duct distention 14 mm with abrupt termination indicating obstruction. Dr. Killian consulted, planning ERCP tomorrow. Patient has mild abdominal tenderness, Lobato sign negative. Patient received ERCP, found with narrowing of the distal common bile duct, stent was placed. Procedure well-tolerated. Status post ERCP patient describes 10 out of 10 diffuse abdominal pain, spoke to gastroenterology stated it was likely secondary to metal stent will take patient today and we will switch metal to a plastic one - Zosyn as above - Dr. Killian consulted, appreciate recommendations - Clear liquid diet, advance as tolerated ? Continue IV fluids as per GI recommendations #Pyelonephritis #GNR bacteremia Patient has pyelonephritis based on CT, and complaint of nausea/vomiting with fever. Urinalysis unremarkable, urine culture ordered. Blood cultures ordered as well. Patient had fever overnight. WBCs downtrending, nausea and vomiting improved. Blood cultures grew GNR 1/2, appropiately covered with current Abx UCx negative - Zosyn 3.375 g IV every 8 hours - Zofran 4 mg IV every 6 hours as needed for nausea/vomiting - Clear liquid diet, advance as tolerated Plan of care discussed with attending Dr. Mckeon. Larry Han MD PGY-1 DVT prophylaxis: Lovenox GI prophylaxis: None Diet: Clear liquid diet Lines: Peripheral IV Code status: Full code Attending Provider Attestation/Addendum Grace Argueta DO, attest that I was physically present for the julio portions of the service and evaluated the patient with the resident and I reviewed and discussed the case with the resident and agree with the resident's findings and plans of care as documented above Patient seen eval this a.m. Patient reported 10 out of 10 pain this morning following placement of metallic stent yesterday after ERCP. Pain improved with Dilaudid. However, due to concern that the metal stent may be causing obstruction to the pancreatic duct, the stent was exchanged for a plastic stent for relief of acute ERCP induced pancreatitis. Case was discussed in detail with GI. Patient had instant relief after placement of plastic stent. Will continue with aggressive IV fluid hydration for the next 24 to 48 hours. Monitor fluid status closely. Patient denies any shortness of breath and no peripheral edema was noted on exam. Abdomen was tender on palpation this morning at time of exam valuation. Will continue with slowly advancing diet from clear liquids. A. Advance diet as tolerated. Blood cultures positive gram-negative rods, continue with IV Zosyn at this time and follow-up with final culture and sensitivities for further narrowing of antibiotics. It is unclear why patient developed a biliary stricture resulting in CBD dilatation. Patient will need to follow-up closely with GI outpatient for ERCP with spyglass for further investigation.
[2024-09-17 13:01] LABS: Lipase > 700 U/L (12-53)
--- NOTE | 2024-09-17 13:47 | ESPR_ITS ---
Documentation for date of: 09/17/24 Subjective Subjective Interval history: s/p ERCP, has abdominal pain, most likley due to fully covered metallic stent caused PD obstruction Exam Vital Signs Temp Pulse Resp BP Pulse Ox O2 Del Method O2 Flow Rate 97.7 F 53 L 18 165/80 H 96 Room Air 4 09/17/24 12:00 09/17/24 12:00 09/17/24 12:00 09/17/24 12:00 09/17/24 12:00 09/17/24 12:00 09/16/24 18:04 Routine Abdominal Exam Comments: tender abdomen Objective Labs 09/17/24 09:33 09/17/24 09:33 Labs: Laboratory Results - last 24 hr 09/16/24 09/17/24 05:47 09:33 WBC 5.6 D RBC 3.56 L Hgb 10.7 L Hct 31.7 L MCV 89 MCH 30.1 MCHC 33.8 RDW Std Deviation 46.6 H Plt Count 201 Neut % (Auto) 78 Lymph % (Auto) 18 [place] % (Auto) 3 Eos % (Auto) 0 Baso % (Auto) 0 Neut # (Auto) 4.4 Lymph # (Auto) 1.0 [place] # (Auto) 0.2 Eos # (Auto) 0.0 Baso # (Auto) 0.0 Immature Gran # (Auto) 0.02 H Absolute Nucleated RBC 0.00 Immature Gran % 0 Nucleated RBC % 0 Sodium 142 Potassium 3.7 Chloride 109 H Carbon Dioxide 20.6 Anion Gap 12 BUN 14 Creatinine 0.7 Estim Creat Clear Calc 99.5 eGFR > 60 BUN/Creatinine Ratio 20 Glucose 234 H D Calculated Osmolality 291 Calcium 8.3 Corrected Calcium 8.9 Phosphorus 3.4 Magnesium 1.7 Total Bilirubin 0.4 AST 12 ALT 17 Alkaline Phosphatase 106 D Total Protein 6.3 Albumin 3.3 L Globulin 3.0 Albumin/Globulin Ratio 1.1 L Lipase > 700 H D Procalcitonin 0.41 Assessment & Plan A&P Narrative 54-year-old female with no significant past medical history who presented to the emergency department with a 3-day history of nausea, vomiting, abdominal discomfort, and fever. Symptoms progressively worsened prior to arrival, with an elevated white blood cell count and a lactic acid level of 2.0. Total bilirubin was elevated at 1.8. s/p ERCP, has abdominal pain, most likley due to fully covered metallic stent caused PD obstruction Lipase 700 Repeat ERP and switch stent to plastic IV abx IVF Will follow Time Spent With Patient Time: Total time spent is greater than 50% in coordination of care (as documented) at patient's floor/unit and/or counseling patient:
[2024-09-17 13:52] LABS: Lipase > 700 U/L (12-53)
--- NOTE | 2024-09-17 13:59 | XR_ITS ---
Examination: ERCP Fluoroscopy 15 spot fluoroscopic films of the abdomen Exam date and time: September 17, 2024 1557 hours INDICATIONS: History nausea vomiting elevated bilirubin, enlarged common hepatic duct on MRCP September 15, 2024 TECHNIQUE AND FINDINGS: 15 spot fluoroscopic films of the abdomen obtained Partial visualization dilated common hepatic duct Biliary stent in satisfactory position Fluoroscopy 18.6 seconds radiation dose 3.28 milligray IMPRESSION: ERCP as above
[2024-09-17] MEDS: INDOMETHACIN 50 MG SUPP 100 MG PR (15:11)
--- NOTE | 2024-09-17 15:24 | SUR.PHASEI ---
1524: Pt. AAOx4, vitals stable, breathing unlabored, no complaint of pain or nausea, no dressing in place, no active bleed noted, report received from MD Isaac and Marin BRITTON.
--- NOTE | 2024-09-17 16:00 | SUR.PHASEI ---
1600: Pt. AAOx4, vitals stable, breathing unlabored, no complaint of pain or nasuea, no dressing in place, no active bleed noted, pt. tolerated bites of ice chips well, gave report to Charito BRITTON prior to transfer to room.
[2024-09-18] VITALS (8 sets, daily range): BP systolic 133–161; BP diastolic 71–88; PULSE 43–60; RESP 18–94; TEMP 36.1–36.8; O2SAT 94–96
[2024-09-18] MEDS: RINGERS LACTATED 1000 ML 1,000 ML 250 ML IV ×2 (05:28→11:07)
[2024-09-18] MEDS: PIPER/TAZO 3.375 GM PREMIX 3.375 GM/50 ML BAG IV ×3 (05:28→21:56)
[2024-09-18 06:57] LABS: Alanine Aminotransferase 18 U/L (10-49); Albumin/Globulin Ratio 1.2 (1.2-2.2); Alkaline Phosphatase 96 U/L (46-116); Anion Gap 13 (7-16); Aspartate Amino Transferase 10 U/L (0-34); BUN/Creatinine Ratio 20 Ratio (12-20); Bilirubin,Total 0.3 mg/dL (0.3-1.2); Blood Urea Nitrogen 12 mg/dL (9-23); Calcium (Corrected) 8.8 mg/dL (8.5-10.1); Carbon Dioxide 23.2 mMol/L (20.0-31.0); Chloride 108 mMol/L (98-107); Creatinine (Component) 0.6 mg/dL (0.6-1.3); Estimated Creatinine Clearance 116.1 mL/min (>60); Globulin 2.6 gm/dL (2.3-3.5); Glucose 221 mg/dL (74-106); Magnesium 1.6 mg/dL (1.6-2.6); Osmolality,Calculated 293 (275-295); Phosphorous 2.7 mg/dL (2.4-5.1); Potassium 4.3 mMol/L (3.4-5.1); Sodium 144 mMol/L (136-145); Total Protein 5.6 gm/dL (5.7-8.2); eGFR > 60 See Note
[2024-09-18 07:54] LABS: Basophils % (Auto) 0 % (0-2.5); Eosinophils % (Auto) 0 % (0-10); Hematocrit 33.4 % (36.0-46.0); Hemoglobin 11.1 g/dL (12.0-16.0); Immature Granulocytes % (Auto) 1 % (0-0); Immature Granulocytes Auto 0.05 Thou/mm3 (0.00-0.00); Lymphocytes # (Auto) 1.4 Thou/mm3 (1.0-4.8); Lymphocytes % (Auto) 15 % (10-50); Mean Corpuscular HGB Conc 33.2 g/dl (31.0-37.0); Mean Corpuscular Hemoglobin 29.8 pg (25.0-35.0); Mean Corpuscular Volume 90 fL (80-100); Monocytes # (Auto) 0.3 Thou/mm3 (0.0-0.8); Monocytes % (Auto) 3 % (0-12); Neutrophils # (Auto) 7.8 Thou/mm3 (1.8-7.7); Neutrophils % (Auto) 81 % (37-80); Nucleated Red Blood Cell % 0 /100 WBC (0); Platelet Count 224 Thou/mm3 (140-440); RDW Standard Deviation 47.1 fL (36.4-46.3); Red Blood Count 3.73 Miln/mm3 (4.00-5.20); White Blood Count 9.6 Thou/mm3 (3.6-11.0)
[2024-09-18 11:21] LABS: Carcinoembryonic Antigen 0.9 ng/mL (0.0-5.0)
[2024-09-18] MEDS: KETOROLAC INJ 30 MG/ML VIAL 15 MG IVP (14:31)
--- NOTE | 2024-09-18 15:10 | ESPR_ITS ---
<Statement entered by Aurelio Orantes MD - 09/24/24 14:45> I reviewed above note and agree with findings and plans. I have also personally examined the patient with medicine team and went over assessment and plan with medical team including internet sales associate and resident physician. Documentation for date of: 09/18/24 Subjective Subjective Interval history: Patient seen today at the bedside found awake, alert, oriented x 3. No overnight events reported. Vital signs and labs reviewed. Diet was advanced to dysphagia, patient is stating some mild discomfort with food, will reevaluate tomorrow to possibly continue to advance diet. Exam Vital Signs Temp Pulse Resp BP Pulse Ox O2 Del Method O2 Flow Rate 97.3 F 60 18 161/71 H 94 L Nasal Cannula 1 09/18/24 12:00 09/18/24 12:00 09/18/24 12:00 09/18/24 12:00 09/18/24 12:00 09/18/24 12:00 09/18/24 12:00 Narrative Exam Physical Exam GENERAL: NAD, AAOx3 HEENT: Moist mucosa. Eyes open, symmetrical, & clear CARDIO: Heart RRR, no obvious murmurs PULM: No noted coughing/dyspnea CTA B/L, no R/W/R GI: Abdomen soft, nondistended, pain on palpation SKIN/MSK/EXT: No wounds/rashes/edema/amputations, no pain on palpation. Pedal pulses present B/L NEURO: AAOx3, no focal neuro deficits, able to move all 4 extremities Objective Labs 09/18/24 07:25 09/18/24 05:33 Labs: Laboratory Results - last 24 hr 09/18/24 09/18/24 05:33 07:25 WBC 9.6 D RBC 3.73 L Hgb 11.1 L Hct 33.4 L MCV 90 MCH 29.8 MCHC 33.2 RDW Std Deviation 47.1 H Plt Count 224 Neut % (Auto) 81 H Lymph % (Auto) 15 [place] % (Auto) 3 Eos % (Auto) 0 Baso % (Auto) 0 Neut # (Auto) 7.8 H Lymph # (Auto) 1.4 [place] # (Auto) 0.3 Eos # (Auto) 0.0 Baso # (Auto) 0.0 Immature Gran # (Auto) 0.05 H Absolute Nucleated RBC 0.00 Immature Gran % 1 H Nucleated RBC % 0 Sodium 144 Potassium 4.3 D Chloride 108 H Carbon Dioxide 23.2 Anion Gap 13 BUN 12 Creatinine 0.6 Estim Creat Clear Calc 116.1 eGFR > 60 BUN/Creatinine Ratio 20 Glucose 221 H Calculated Osmolality 293 Calcium 8.0 L Corrected Calcium 8.8 Phosphorus 2.7 Magnesium 1.6 Total Bilirubin 0.3 AST 10 ALT 18 Alkaline Phosphatase 96 Total Protein 5.6 L Albumin 3.0 L Globulin 2.6 Albumin/Globulin Ratio 1.2 Carcinoembryonic Ag 0.9 Quality Measures Quality Measures VTE prophylaxis Assessment & Plan Assessment Current Active Medications: Generic Name Dose Route Start Last Admin Trade Name Freq PRN Reason Stop Dose Admin Acetaminophen 650 mg 09/15/24 11:40 09/16/24 20:04 Acetaminophen 325 Mg Tablet PO 10/15/24 11:39 650 mg Q6H PRN Administration Fever >100.4 or pain Protocol Enoxaparin Sodium 40 mg 09/16/24 09:00 09/17/24 10:02 Enoxaparin Sod Inj 40 Mg/0.4 Ml Syringe SC 09/30/24 08:59 40 mg QDAY LUIS A Administration Hydralazine HCl 5 mg 09/17/24 15:07 Hydralazine Inj 20 Mg/Ml Vial IV Q20MIN PRN SEE COMMENTS Hydromorphone HCl 2 mg 09/17/24 10:20 Hydromorphone Inj 2 Mg/Ml Vial IVP 09/22/24 10:19 Q4HR PRN PAIN SCALE 7-10 (Severe Piperacillin/Tazobactam/Dextrose 3.375 gm in 50 mls @ 12.5 mls/hr 09/15/24 14:00 09/18/24 13:48 Zosyn IV 09/22/24 13:59 12.5 mls/hr Q8HR LUIS A Administration Protocol Promethazine HCl 12.5 mg/ 50.5 mls @ 2.5 mls/min 09/17/24 15:07 Sodium Chloride IV X1 PRN NAUSEA OR VOMITING Ketorolac Tromethamine 15 mg 09/17/24 10:21 09/18/24 14:31 Ketorolac Inj 30 Mg/Ml Vial IVP 09/21/24 22:10 15 mg Q6HR PRN Administration PAIN SCALE 4-6 (Moderate Meperidine HCl 12.5 mg 09/17/24 15:07 Meperidine Inj 50 Mg/Ml Vial IV 09/22/24 15:06 Q5M PRN SHIVERING Ondansetron HCl 4 mg 09/15/24 11:40 09/15/24 14:05 Ondansetron Inj 2 Mg/Ml Inj 2 Ml IV 10/15/24 11:39 4 mg Q6H PRN Administration NAUSEA OR VOMITING Protocol Plan 54 y/o F without significant medical history presents with chief complaint of nausea and vomiting with associated fevers, admitted for pyelonephritis and common bile duct obstruction. #Acute pancreatitis #Common bile duct narrowing s/p stent placement Patient has history of cholecystectomy 8-[address] A/P showed dilated common bile duct, MRCP showed common bile duct distention 14 mm with abrupt termination indicating obstruction. Dr. Killian consulted, planning ERCP tomorrow. Patient has mild abdominal tenderness, Lobato sign negative. Patient received ERCP, found with narrowing of the distal common bile duct, stent was placed. Procedure well-tolerated. Status post ERCP patient describes 10 out of 10 diffuse abdominal pain, spoke to gastroenterology stated it was likely secondary to metal stent will take patient today and we will switch metal to a plastic one - Zosyn as above - Dr. Killian consulted, appreciate recommendations - dysphagia diet, advance as tolerated #Pyelonephritis #GNR bacteremia Patient has pyelonephritis based on CT, and complaint of nausea/vomiting with fever. Urinalysis unremarkable, urine culture ordered. Blood cultures ordered as well. Patient had fever overnight. WBCs downtrending, nausea and vomiting improved. Blood cultures grew GNR 1/2, appropiately covered with current Abx UCx negative - Zosyn 3.375 g IV every 8 hours - Zofran 4 mg IV every 6 hours as needed for nausea/vomiting - dysphagia diet , advance as tolerated Plan of care discussed with my senior Dr. Blood and my attending Dr. Orantes. Larry Han MD PGY-1 DVT prophylaxis: Lovenox GI prophylaxis: None Diet: Clear liquid diet Lines: Peripheral IV Code status: Full code
[2024-09-19] VITALS (7 sets, daily range): BP systolic 121–157; BP diastolic 69–92; PULSE 43–85; RESP 16–97; TEMP 36.1–36.8; O2SAT 91–99
[2024-09-19] MEDS: PIPER/TAZO 3.375 GM PREMIX 3.375 GM/50 ML BAG IV ×2 (05:17→13:16)
[2024-09-19 05:34] LABS: Basophils % (Auto) 0 % (0-2.5); Eosinophils % (Auto) 0 % (0-10); Hematocrit 32.1 % (36.0-46.0); Hemoglobin 10.5 g/dL (12.0-16.0); Immature Granulocytes % (Auto) 1 % (0-0); Immature Granulocytes Auto 0.05 Thou/mm3 (0.00-0.00); Lymphocytes # (Auto) 2.6 Thou/mm3 (1.0-4.8); Lymphocytes % (Auto) 26 % (10-50); Mean Corpuscular HGB Conc 32.7 g/dl (31.0-37.0); Mean Corpuscular Hemoglobin 29.3 pg (25.0-35.0); Mean Corpuscular Volume 90 fL (80-100); Monocytes # (Auto) 0.5 Thou/mm3 (0.0-0.8); Monocytes % (Auto) 5 % (0-12); Neutrophils # (Auto) 6.8 Thou/mm3 (1.8-7.7); Neutrophils % (Auto) 68 % (37-80); Nucleated Red Blood Cell % 0 /100 WBC (0); Platelet Count 206 Thou/mm3 (140-440); RDW Standard Deviation 46.8 fL (36.4-46.3); Red Blood Count 3.58 Miln/mm3 (4.00-5.20); White Blood Count 10.1 Thou/mm3 (3.6-11.0)
[2024-09-19 05:49] LABS: Alanine Aminotransferase 14 U/L (10-49); Albumin, Serum 3.4 gm/dL (3.5-5.0); Albumin/Globulin Ratio 1.2 (1.2-2.2); Alkaline Phosphatase 85 U/L (46-116); Anion Gap 10 (7-16); Aspartate Amino Transferase < 10 U/L (0-34); BUN/Creatinine Ratio 15 Ratio (12-20); Bilirubin,Total 0.3 mg/dL (0.3-1.2); Blood Urea Nitrogen 12 mg/dL (9-23); Calcium 8.2 mg/dL (8.3-10.6); Calcium (Corrected) 8.7 mg/dL (8.5-10.1); Chloride 108 mMol/L (98-107); Creatinine (Component) 0.8 mg/dL (0.6-1.3); Estimated Creatinine Clearance 87.1 mL/min (>60); Globulin 2.9 gm/dL (2.3-3.5); Glucose 150 mg/dL (74-106); Magnesium 1.7 mg/dL (1.6-2.6); Osmolality,Calculated 293 (275-295); Phosphorous 2.5 mg/dL (2.4-5.1); Potassium 3.6 mMol/L (3.4-5.1); Sodium 146 mMol/L (136-145); Total Protein 6.3 gm/dL (5.7-8.2); eGFR > 60 See Note
[2024-09-19] MEDS: IRON SUCROSE CPLX INJ 20 MG/ML VIAL 5 ML 200 MG IVP (09:31)
[2024-09-19] MEDS: Magnesium Sulfate 2 GM Ivpb 2 GM/50 ML BAG IV (09:39)
[2024-09-19] MEDS: HYOSCYAMINE SULF 0.125 MG TAB.SUBL 0.25 MG PO ×3 (10:06→20:17)
--- NOTE | 2024-09-19 15:42 | ESPR_ITS ---
<Statement entered by Aurelio Orantes MD - 09/24/24 14:47> I reviewed above note and agree with findings and plans. I have also personally examined the patient with medicine team and went over assessment and plan with medical team including healthcare administration internship and resident physician. Documentation for date of: 09/19/24 Subjective Subjective Interval history: Patient was seen and examined at bedside this AM. No acute events overnight. Patient has adequate urine output and mentation is at baseline. Patient endorses pain on dysphagia 2 diet when advanced, will continue dysphagia 1 for now Will reevaluate tomorrow to possibly continue to advance diet. Exam Vital Signs Temp Pulse Resp BP Pulse Ox O2 Del Method O2 Flow Rate 97.2 F 67 17 149/78 H 92 L Room Air 1 09/19/24 12:00 09/19/24 12:00 09/19/24 12:00 09/19/24 12:09/19/24 12:00 09/19/24 12:00 09/18/24 15:10 Narrative Exam Constitutional Alert, oriented x3 and in mild discomfort. NPO HEENT Vision grossly intact. Patent nares. Trachea midline. Respiratory Chest normal on inspection and clear to auscultation bilaterally. Cardiovascular S1 and S2 audible, RRR. No murmurs or carotid bruit. No gross JVD. Abdominal Soft , but diffusely tender to palpation. BS + Genitourinary No bladder tenderness, no flank pain. Normal to palpation. Musculoskeletal Extremities tone within normal limits. 1+ LE edema. Neurological CN II - XII grossly intact. Extremity motor and sensation grossly intact. Skin Warm, dry and intact. No apparent lesions. Psychiatric Patient has a good affect, is cooperative. Objective Labs 09/19/24 05:13 09/19/24 05:13 Labs: Laboratory Results - last 24 hr 09/19/24 05:13 WBC 10.1 RBC 3.58 L Hgb 10.5 L Hct 32.1 L MCV 90 MCH 29.3 MCHC 32.7 RDW Std Deviation 46.8 H Plt Count 206 Neut % (Auto) 68 Lymph % (Auto) 26 [place] % (Auto) 5 Eos % (Auto) 0 Baso % (Auto) 0 Neut # (Auto) 6.8 Lymph # (Auto) 2.6 [place] # (Auto) 0.5 Eos # (Auto) 0.0 Baso # (Auto) 0.0 Immature Gran # (Auto) 0.05 H Absolute Nucleated RBC 0.00 Immature Gran % 1 H Nucleated RBC % 0 Sodium 146 H Potassium 3.6 D Chloride 108 H Carbon Dioxide 28.0 Anion Gap 10 BUN 12 Creatinine 0.8 Estim Creat Clear Calc 87.1 eGFR > 60 BUN/Creatinine Ratio 15 Glucose 150 H D Calculated Osmolality 293 Calcium 8.2 L Corrected Calcium 8.7 Phosphorus 2.5 Magnesium 1.7 Total Bilirubin 0.3 AST < 10 ALT 14 Alkaline Phosphatase 85 Total Protein 6.3 Albumin 3.4 L Globulin 2.9 Albumin/Globulin Ratio 1.2 Quality Measures Quality Measures VTE prophylaxis Assessment & Plan Assessment Current Active Medications: Generic Name Dose Route Start Last Admin Trade Name Freq PRN Reason Stop Dose Admin Acetaminophen 650 mg 09/15/24 11:40 09/16/24 20:04 Acetaminophen 325 Mg Tablet PO 10/15/24 11:39 650 mg Q6H PRN Administration Fever >100.4 or pain Protocol Hyoscyamine 0.25 mg 09/19/24 17:00 Hyoscyamine Sulf 0.125 Mg Tab.Subl PO 10/19/24 09:59 ACHS LUIS A Iron Sucrose 200 mg 09/19/24 09:00 09/19/24 09:31 Iron Sucrose Cplx Inj 20 Mg/Ml Vial 5 Ml IVP 09/23/24 08:59 200 mg DAILY LUIS A Administration Ondansetron HCl 4 mg 09/15/24 11:40 09/15/24 14:05 Ondansetron Inj 2 Mg/Ml Inj 2 Ml IV 10/15/24 11:39 4 mg Q6H PRN Administration NAUSEA OR VOMITING Protocol Plan Patient is 54 y/o F without significant medical history presents with chief complaint of nausea and vomiting with associated fevers, admitted for pyelonephritis and common bile duct obstruction. 1. Acute pancreatitis - improved 2. Common bile duct obstruction - resolved s/p stent replacement Patient has history of cholecystectomy 8-[address] A/P showed dilated common bile duct, MRCP showed common bile duct distention 14 mm with abrupt termination indicating obstruction. Dr. Killian consulted, planning ERCP tomorrow. Patient has mild abdominal tenderness, Lobato sign negative. Patient received ERCP, found with narrowing of the distal common bile duct, stent was placed. Procedure well-tolerated. Status post ERCP patient describes 10 out of 10 diffuse abdominal pain, spoke to gastroenterology stated it was likely secondary to metal stent will take patient today and we will switch metal to a plastic one - Dr. Killian following, appreciate recommendations - Continue Dysphagia 1 diet, advance as tolerated - Zofran 4 mg IV every 6 hours as needed for nausea/vomiting - Pain control: Antispasmodic Hyoscyamine 0.25mg ACHS, to be given 30 minutes before meals 3. Acute Pyelonephritis 4. GNR bacteremia - resolved Patient has pyelonephritis based on CT, and complaint of nausea/vomiting with fever. Urinalysis unremarkable, urine culture ordered. Blood cultures ordered as well. Patient had fever overnight. WBCs downtrending, nausea and vomiting improved. Blood cultures grew GNR 1/2, appropiately covered with current Abx - IV Zosyn course completed. - UCx : negative Healthcare management: Dispo: Med Surg. Anticipate DC in 24 hours once able to tolerate diet. DVT prophylaxis: Lovenox GI prophylaxis: None Diet: Liquid diet --> Dysphagia 1 Lines: Peripheral IV Code status: Full code Plan of care discussed with attending Dr Orantes , Chris Blood M.D. PGY2 Disclaimer: This note was dictated by speech recognition. Minor errors in satellite specialist may be present due to voice recognition software.
[2024-09-19] MEDS: ONDANSETRON INJ 2 MG/ML INJ 2 ML 4 MG IV (15:57)
[2024-09-20] VITALS: BP 127/76; PULSE 72; PULSE 82; RESP 18; TEMP 37.6; O2SAT 97
[2024-09-20 04:00] VITALS: BP 157/81; PULSE 65; PULSE 69; RESP 18; TEMP 36.5; O2SAT 93
[2024-09-20 07:03] LABS: Basophils % (Auto) 0 % (0-2.5); Eosinophils # (Auto) 0.1 Thou/mm3 (0.0-0.5); Eosinophils % (Auto) 1 % (0-10); Hematocrit 31.4 % (36.0-46.0); Hemoglobin 10.7 g/dL (12.0-16.0); Immature Granulocytes % (Auto) 1 % (0-0); Immature Granulocytes Auto 0.06 Thou/mm3 (0.00-0.00); Lymphocytes # (Auto) 1.9 Thou/mm3 (1.0-4.8); Lymphocytes % (Auto) 21 % (10-50); Mean Corpuscular HGB Conc 34.1 g/dl (31.0-37.0); Mean Corpuscular Volume 88 fL (80-100); Monocytes # (Auto) 0.5 Thou/mm3 (0.0-0.8); Monocytes % (Auto) 5 % (0-12); Neutrophils # (Auto) 6.9 Thou/mm3 (1.8-7.7); Neutrophils % (Auto) 72 % (37-80); Nucleated Red Blood Cell % 0 /100 WBC (0); Platelet Count 237 Thou/mm3 (140-440); RDW Standard Deviation 46.5 fL (36.4-46.3); Red Blood Count 3.57 Miln/mm3 (4.00-5.20); White Blood Count 9.5 Thou/mm3 (3.6-11.0)
[2024-09-20] MEDS: HYOSCYAMINE SULF 0.125 MG TAB.SUBL 0.25 MG PO ×2 (07:22→11:30)
[2024-09-20 07:23] LABS: Alanine Aminotransferase 28 U/L (10-49); Albumin, Serum 3.4 gm/dL (3.5-5.0); Albumin/Globulin Ratio 1.2 (1.2-2.2); Alkaline Phosphatase 91 U/L (46-116); Anion Gap 10 (7-16); Aspartate Amino Transferase 24 U/L (0-34); BUN/Creatinine Ratio 8 Ratio (12-20); Bilirubin,Total 0.5 mg/dL (0.3-1.2); Blood Urea Nitrogen < 5 mg/dL (9-23); Calcium (Corrected) 8.5 mg/dL (8.5-10.1); Chloride 107 mMol/L (98-107); Creatinine (Component) 0.6 mg/dL (0.6-1.3); Estimated Creatinine Clearance 116.1 mL/min (>60); Globulin 2.9 gm/dL (2.3-3.5); Glucose 120 mg/dL (74-106); Osmolality,Calculated 285 (275-295); Phosphorous 3.7 mg/dL (2.4-5.1); Potassium 2.9 mMol/L (3.4-5.1); Sodium 144 mMol/L (136-145); Total Protein 6.3 gm/dL (5.7-8.2); eGFR > 60 See Note
[2024-09-20 08:00] VITALS: BP 173/109; PULSE 104; PULSE 76; RESP 19; TEMP 36.6; O2SAT 92
[2024-09-20] MEDS: POTASSIUM CHLORIDE 10% 20 MEQ/15 ML UDC 40 MEQ PO (08:08)
[2024-09-20] MEDS: IRON SUCROSE CPLX INJ 20 MG/ML VIAL 5 ML 200 MG IVP (09:37)
[2024-09-20 09:40] VITALS: PULSE 80; RESP 18; RESP 92
[2024-09-20 12:00] VITALS: BP 147/92; PULSE 80; PULSE 81; RESP 18; TEMP 36.2; O2SAT 92
--- NOTE | 2024-09-20 12:25 | PD.RESDS ---
Planned Discharge Date 09/20/24 DS: Providers Provider Date of admission: 09/15/24 11:40 Primary care physician: Brennen Han MD Admitting Provider: Grace Mckeon DO Attending Provider on Admission: Grace Mckeon DO Consults: 09/15/24 10:03 Referral - Parts Sales Associate Stat Service Needed for Transfer: ERCP GI Addl Comments:: MRI with abnormal extra hepatic biliary tract dilation with abrupt termination of the distal common bile duct no stones seen to rule out neoplasm 09/15/24 10:28 Consult to Gastroenterology Stat Comment: ercp Consulting Provider: Samy Dougherty 09/18/24 14:16 Referral Physical Therapy Stat Comment: Physician Instructions: Attending Provider on DC: Chris Blood MD Discharging Provider: Chris Blood MD DS: Diagnosis Discharge Diagnosis (1) Abdominal pain: Status: Acute (2) Nausea & vomiting: Status: Acute Problem List Completed Was Problem List Reviewed/Reconciled?: Yes Hospital Course Hospital Course Hospital course: Hospital Course: Patient is 54 y/o F without significant medical history presents with chief complaint of nausea and vomiting with associated fevers, admitted for pyelonephritis and common bile duct obstruction. She underwent ERCP on September 06, [address] Killian. Her metal stent was replaced with a plastic stent. Pancreatitis and abdominal discomfort improved after procedure. Tumor markers were all negative on testing. She is able to tolerate diet with minimal pain. Patient was counseled to continue on Low fat diet, and may use Levsin prior to consuming food, to prevent spasmodic pain from pancreatic and biliary duct contraction. she remained afebrile during the hospitalization, and had normal BMs. She is advised to follow up with her PCP and GI Dr Killian closely after DC. Problems on this admission: 1. Acute pancreatitis - resolved 2. Common bile duct obstruction s/p stent replacement - resolved 3. Acute Pyelonephritis - resolved 4. GNR bacteremia - resolved Procedures: ERCP and stent replacement by Dr Killian Discharge instructions: - Follow up with primary care provider within 1 week of discharge. If you don't have a PCP please call: for an appointment at [facility] [address]. - Please follow up with GI - Dr Killian outpatient. - Hold Ozempic until follow up with primary care provider, given recent bout of pancreatitis - Take Hyoscyamine as needed,30 minutes before meals to prevent abdominal pain - Recommend small low fat meals for next 2-3 weeks - Continue other home medications. - Return to ED if symptoms worsen. We are grateful to be able to participate in Ms Almaguer's care. We wish her the best. - Chris Blood MD Status at Discharge Cognitive/behavioral status at discharge: Stable and returned to baseline. Time Spent with Patient Time attestation: Total time spent providing and/or coordinating discharge services: more than 50% Time spent: Greater than 30 minutes Exam Vital Signs Temp Pulse Resp BP Pulse Ox O2 Del Method O2 Flow Rate 97.9 F 104 H 19 173/109 H 92 L Room Air 1 09/20/24 08:00 09/20/24 08:00 09/20/24 08:00 09/20/24 08:00 09/20/24 08:00 09/20/24 08:00 09/18/24 15:10 Narrative Exam Constitutional Alert, oriented x3 and able to tolerate diet w/o pain HEENT Vision grossly intact. Patent nares. Trachea midline. Respiratory Chest normal on inspection and clear to auscultation bilaterally. Cardiovascular S1 and S2 audible, RRR. No murmurs or carotid bruit. No gross JVD. Abdominal Soft , but diffusely tender to palpation. BS + Genitourinary No bladder tenderness, no flank pain. Normal to palpation. Musculoskeletal Extremities tone within normal limits. 1+ LE edema. Neurological CN II - XII grossly intact. Extremity motor and sensation grossly intact. Skin Warm, dry and intact. No apparent lesions. Psychiatric Patient has a good affect, is cooperative. Discharge Plan Plan Patient Disposition: HOME (Self Care) Patient condition on transfer: Stable Care Plan Goals: - Follow up with primary care provider within 1 week of discharge. If you don't have a PCP please call: for an appointment at [facility] [address] - Please follow up with GI - Dr Killian outpatient. - Hold Ozempic until follow up with primary care provider, given recent bout of pancreatitis - Take Hyoscyamine as needed,30 minutes before meals to prevent abdominal pain - Recommend small low fat meals for next 2-3 weeks - Continue other home medications. - Return to ED if symptoms worsen. -Kassandra leslie vaughn con woo m?dico de cabecera dentro de la semana posterior al joe. Si no tiene un m?dico de cabecera, llame al para programar leslie vaughn en el [facility] [place], [address], [address]. - Kassandra leslie vaughn con el gastroenter?logo, Dr. Killian, para pacientes ambulatorios. - Suspenda la administraci?n de Ozempic hasta la vaughn de seguimiento con woo m?dico de cabecera, dado un episodio reciente de pancreatitis. - [employer] hiosciamina seg?n sea necesario, 30 minutos antes de las comidas para prevenir el dolor abdominal. - Recomiende comidas martinez?as y bajas en grasa milena las pr?ximas 2-3 semanas. - Contin?e con otros medicamentos que alysa en casa. - Regrese a urgencias si los s?ntomas empeoran. Prescriptions/Referrals Prescriptions/Med Rec: New hyoscyamine sulfate 0.125 mg tablet 0.25 mg PO QID PRN (Reason: abdo pain) 21 Days Qty: 60 0RF Rx Instructions: take 30 minutes before meals Continued levalbuterol tartrate [Xopenex HFA] 15 GM HFA aerosol inhaler 2 puff Inhalation Q4-6HRPRN Qty: 0 Advair HFA 115-21 mcg/actuation Hfa Aerosol Inhaler 2 puff inhalation BID Qty: 0 albuterol sulfate 90 mcg/actuation Hfa Aerosol Inhaler 2 puff INHALATION Q6H PRN (Reason: Wheezing) hydrocodone-acetaminophen 5-325 mg tablet 1 tab PO Q6H MDD 4 PRN (Reason: pain (scale score 7-10)) Qty: 20 0RF docusate sodium [Colace] 100 mg capsule 100 mg PO BID Qty: 40 0RF ondansetron 4 mg tablet,disintegrating 4 mg PO Q8H PRN (Reason: nausea and vomiting) Qty: 20 0RF cetirizine 10 mg tablet Patient Comments: TOME 1 TABLETA POR VIA ORAL TODOS LOS DOTY Held Ozempic 0.25 mg or 0.5 mg (2 mg/3 mL) pen injector SUBCUT Hold Instructions: Resume on 10/04/24. Hold until follow up with PCP given recent bout of pancreatitis Discontinued ibuprofen 600 mg tablet 600 mg PO Q8H PRN (Reason: pain (scale score 4-6)) Qty: 15 0RF Referrals: Brennen Han MD [Primary Care Provider] - Patient/Caregiver Discharge Instructions Discharge Activity: resume usual activities Education Materials: Abdominal Pain, Understanding Pancreatitis, Measuring Your Pain Print Language: Setswana Stand Alone Forms: Ruthy Award Info., Patient Portal Info Letter Discharge Order Discharge Orders: Discharge (Routine); Ordered 09/20/24 Ordered By: Chris Blood Quality Discharge Quality Measures VTE prophylaxis
[2024-09-20 14:37] LABS: Potassium 3.6 mMol/L (3.4-5.1)
[2024-09-20 16:00] VITALS: PULSE 72
[2024-09-22 07:04] LABS: CA 19-9 Antigen* 3 U/mL (<34)
== END 2024-09-20 16:25 | disposition home or self-care (01) | DRG 282 ==
LOC: SERX 09-15 06:12 → SERHOLD 09-15 11:48 → S3NX 09-15 15:02
PROVIDERS: Internal Medicine Gastroenterology; Physician Assistant; Registered Nurse General Practice; Student in an Organized Health Care Education/Training Program; Admitting Provider Internal Medicine; Emergency Provider Emergency Medicine; PCP Family Medicine; Visit Provider Internal Medicine
PROC: (CPT 43260; principal; 2024-09-16 14:45)
DX: K85.90 Acute pancreatitis without necrosis or infection, unspecified (principal); N10 Acute pyelonephritis; K83.1 Obstruction of bile duct; R11.2 Nausea with vomiting, unspecified; D72.829 Elevated white blood cell count, unspecified; R78.81 Bacteremia; Z90.49 Acquired absence of other specified parts of digestive tract
CPT/HCPCS: 36415; 71045; 74177; 74330; 80048; 80053; 80061; 81001; 82378; 83605; 83615; 83690; 83735; 83880; 84100; 84132; 84145; 84484; 85025; 85610; 85730; 86301; 87040; 87077; 87086; 87186; 87400; 87811; 93005; 93225; 96361; 96365; 96366; 96367; 97162; 99285; A4217; A4649; C1874; C1889; C2617; J0131; J0360; J0696; J1100; J1650; J1756; J1885; J2250; J2270; J2405; J2543; J2704; J2710; J3010; J3475; J3480; J3490; J7030; J7120; Q9967; S8037; 74181; A9270; J1596

== ENCOUNTER 2024-10-08 11:16 | Emergency (ER) | payer MEDICAID, SELFPAY ==
[2024-10-08 11:17] VITALS: BMI 36.0
[2024-10-08 11:36] VITALS: BP 145/90; PULSE 87; RESP 18; TEMP 37.2; O2SAT 96
--- NOTE | 2024-10-08 11:42 | XR_ITS ---
Examination: Abdomen sonogram, Limited Date and time of exam: October 08, 2024 1159 hours INDICATIONS: Right upper abdominal pain beginning 2 days ago, cholecystectomy history Technique: Real-time andrew scale transabdominal sonographic images of the upper abdomen obtained. Findings: Absent gallbladder Common bile duct 0.1 cm Pancreatic head 2.6 cm Liver 18.6 cm fatty infiltration no focal liver lesions Normal hepatopedal portal venous flow Patent IVC IMPRESSION: Absent gallbladder Normal common bile duct Moderate hepatomegaly
--- NOTE | 2024-10-08 11:43 | PD.EDRME ---
Rapid Medical Screening Exam E Arrival date/time: 10/08/24 11:16 54-year-old female with a history of a cholecystectomy presents to the emergency room with a chief complaint of 8 out of 10 right upper quadrant and epigastric abdominal pain and distention x 3 days. Patient states she recently had an ERCP. I have greeted and performed a focused initial assessment of this patient. A comprehensive ED assessment and evaluation of the patient, analysis of all test results, and completion of the medical decision making process will be conducted by additional ED providers. Chief Complaint: Abdominal Pain Time Seen by Provider: 10/08/24 11:29 Vital signs: Vital Signs Temperature 99.0 F 10/08/24 11:36 Pulse Rate 87 10/08/24 11:36 Respiratory Rate 18 10/08/24 11:36 Blood Pressure 145/90 H 10/08/24 11:36 Pulse Oximetry (%) 96 10/08/24 11:36 Oxygen Delivery Method Room Air 10/08/24 11:36 Vital signs reviewed by provider: Yes
[2024-10-08] MEDS: MG HYD/AL HYD/SIME (Maalox Reg) SUSP 30 ML UDC PO (11:54)
[2024-10-08] MEDS: HYDROcodone/APAP 5/325 TABLET 1 TAB PO (11:54)
[2024-10-08] MEDS: ONDANSETRON ODT 4 MG TABRAP PO (11:54)
[2024-10-08 12:43] LABS: Basophils % (Auto) 0 % (0-2.5); Eosinophils # (Auto) 0.2 Thou/mm3 (0.0-0.5); Eosinophils % (Auto) 2 % (0-10); Hematocrit 36.3 % (36.0-46.0); Hemoglobin 12.1 g/dL (12.0-16.0); Immature Granulocytes % (Auto) 0 % (0-0); Immature Granulocytes Auto 0.03 Thou/mm3 (0.00-0.00); Lymphocytes # (Auto) 2.1 Thou/mm3 (1.0-4.8); Lymphocytes % (Auto) 26 % (10-50); Mean Corpuscular HGB Conc 33.3 g/dl (31.0-37.0); Mean Corpuscular Hemoglobin 29.4 pg (25.0-35.0); Mean Corpuscular Volume 88 fL (80-100); Monocytes # (Auto) 0.5 Thou/mm3 (0.0-0.8); Monocytes % (Auto) 6 % (0-12); Neutrophils # (Auto) 5.4 Thou/mm3 (1.8-7.7); Neutrophils % (Auto) 65 % (37-80); Nucleated Red Blood Cell % 0 /100 WBC (0); Platelet Count 259 Thou/mm3 (140-440); RDW Standard Deviation 46.8 fL (36.4-46.3); Red Blood Count 4.11 Miln/mm3 (4.00-5.20); White Blood Count 8.2 Thou/mm3 (3.6-11.0)
[2024-10-08 13:02] LABS: Alanine Aminotransferase 15 U/L (10-49); Albumin, Serum 4.2 gm/dL (3.5-5.0); Albumin/Globulin Ratio 1.2 (1.2-2.2); Alkaline Phosphatase 95 U/L (46-116); Anion Gap 11 (7-16); Aspartate Amino Transferase 12 U/L (0-34); BUN/Creatinine Ratio 10 Ratio (12-20); Bilirubin,Total 0.5 mg/dL (0.3-1.2); Blood Urea Nitrogen 8 mg/dL (9-23); Calcium 8.8 mg/dL (8.3-10.6); Calcium (Corrected) 8.8 mg/dL (8.5-10.1); Carbon Dioxide 26.4 mMol/L (20.0-31.0); Chloride 106 mMol/L (98-107); Creatinine (Component) 0.8 mg/dL (0.6-1.3); Globulin 3.6 gm/dL (2.3-3.5); Glucose 235 mg/dL (74-106); Lipase 42 U/L (12-53); Osmolality,Calculated 291 (275-295); Sodium 143 mMol/L (136-145); Total Protein 7.8 gm/dL (5.7-8.2); eGFR > 60 See Note
[2024-10-08 13:13] LABS: Collection Type, Urine Clean Catch
[2024-10-08 13:18] LABS: Bacteria,Urine Rare; Bilirubin,Urine Negative (Negative); Blood,Urine Negative (Negative); Color,Urine Lt-Yellow (Lt Yel-Yel); Glucose, Urine Negative (Negative); Ketones,Urine Negative (Negative); Leukocyte Esterase,Urine Positive (Negative); Nitrite,Urine Positive (Negative); Protein,Urine Negative (Neg - Trace); RBC,Urine 3 /hpf (0-3); Specific Gravity,Urine 1.014 (1.001-1.035); Squamous Epithelial Cell,Urine < 1 /hpf (0-5); Urobilinogen,Urine Negative mg/dL (0.0-1.0); WBC,Urine 48 /hpf (0-5)
[2024-10-08 13:20] LABS: HCG Qualitative,Urine Negative
[2024-10-08 13:42] LABS: Clarity,Urine Hazy (Clear/Hazy)
--- NOTE | 2024-10-08 14:05 | PD.EDABDPN ---
ED Abdominal Pain RME/HPI General Chief Complaint: Abdominal Pain Stated complaint: RUQ ABD PAIN S/P CHOLYCYSTECTOMY X2 MONTHS AGO Time seen by provider: 10/08/24 11:29 Arrival date/time: 10/08/24 11:16 RME / HPI RME / HPI narrative: 10/08/24 11:16 54-year-old female patient with recent history of cholecystectomy about 2 months ago, came in for evaluation regarding epigastric pain. Has been having epigastric pain for the last 2 days described as sharp pain, burning-like sensation, radiating to the substernal area, severity moderate. Denies any nausea denies any vomiting. Denies any fever. Denies any other complaints. No medication was taken prior to arrival. Related Data Home Medications ?Medication ?Instructions ?Recorded ?Confirmed fluticasone propionate 115 2 puff inhalation BID ##0 05/15/13 07/28/24 mcg-salmeterol 21 mcg/actuation HFA inhaler (Advair HFA) levalbuterol tartrate 45 2 puff inhalation Q4-6HRPRN #0 05/15/13 07/28/24 mcg/actuation aerosol inhaler puffs (Xopenex HFA) albuterol sulfate 90 mcg/actuation 2 puff inhalation Q6H PRN Wheezing 02/19/22 09/16/24 aerosol inhaler cetirizine 10 mg tablet mg 09/16/24 semaglutide 0.25 mg or 0.5 mg (2 mg subcut 09/16/24 mg/3 mL) subcutaneous pen injector (Ozempic) Held on 09/20/24. Instructions: Resume on 10/04/24. Hold until follow up with PCP given recent bout of pancreatitis Previous Rx's ?Medication ?Instructions ?Recorded docusate sodium 100 mg capsule 100 mg PO BID #40 caps 02/20/22 (Colace) hydrocodone 5 mg-acetaminophen 325 1 tab PO Q6H PRN pain (scale score 02/20/22 mg tablet 7-10) #20 tabs ondansetron 4 mg disintegrating 4 mg PO Q8H PRN nausea and 06/29/24 tablet vomiting #20 tabs hyoscyamine sulfate 0.125 mg tablet 0.25 mg (2 x 0.125 mg) PO QID PRN 09/20/24 abdo pain 3 weeks #60 tabs cephalexin 500 mg capsule 500 mg PO TID 7 days #21 caps 10/08/24 dicyclomine 20 mg tablet 20 mg PO TID PRN abdominal pain 10/08/24 #30 tabs pantoprazole 40 mg tablet,delayed 40 mg PO QDAY #30 tabs 10/08/24 release (Protonix) Allergies Allergy/AdvReac Type Severity Reaction Status Date / Time No Known Allergies Allergy Verified 10/08/24 11:21 Review of Systems Review of Systems Narrative Review of Systems: Review of system reviewed and within normal limits except mentioned in HPI ED Exam Narrative Physical exam: VITAL SIGNS: Reviewed. GENERAL APPEARANCE: Alert and interactive, follows commands, no acute distress, HEAD AND FACE: Non-traumatic. ENT: PERRL, pink conjunctivitis, eyelid no trauma, Mucous membrane moist. NECK: Supple, nontender, no nuchal rigidity. CHEST: No tenderness, no crepitus, no paradoxical movement, no retractions. LUNGS: Clear, well ventilated, symmetric, no rales, no wheezing, no ronchi, no stridor, good breath sounds bilaterally. HEART: Regular rate, regular rhythm, no murmur, no gallops. ABDOMEN: Soft, positive bowel sounds, nondistended, no guarding, epigastric tenderness, no rebound, no masses, RECTAL: Deferred. GENITAL: Deferred. NEUROLOGICAL: Gross motor function intact sensory function intact, Appropriate for age. MUSCULOSKELETAL: low back nontender, full range of motion. EXTREMITIES: Nontender, full range of motion. SKIN: Color pink, dry, no rash, no lacerations, no abrasions, no contusions. LYMPHATICS: Deferred. Course Quality Measures none Orders Category Date Time Status US gall bladder Stat Exams 10/08/24 11:42 Completed CBC Stat Lab 10/08/24 12:28 Completed CMP [Comprehensive Metabolic Panel] Stat Lab 10/08/24 12:28 Completed HCG Qualitative,Urine Stat Lab 10/08/24 12:58 Completed Lipase Stat Lab 10/08/24 12:28 Completed UA [Urinalysis] Stat Lab 10/08/24 12:58 Completed Urine Culture Stat Lab 10/08/24 12:58 Received HYDROcodone*/APAP 5/325 [[place] 5/325] Med 10/08/24 11:42 Discontinued 1 tab PO X1 ONE Ondansetron Odt [Zofran Odt] Med 10/08/24 11:42 Discontinued 4 mg PO X1 ONE Potassium Chloride [K-Dur] Med 10/08/24 13:50 Discontinued 40 meq PO X1 ONE mg Hyd/Al Hyd/Heather Susp [Maalox Susp] Med 10/08/24 11:42 Discontinued 30 ml PO X1 ONE Vital Signs Vital signs: Vital Signs Temperature 99.0 F 10/08/24 11:36 Pulse Rate 87 10/08/24 11:36 Respiratory Rate 18 10/08/24 11:36 Blood Pressure 145/90 H 10/08/24 11:36 Pulse Oximetry (%) 96 10/08/24 11:36 Oxygen Delivery Method Room Air 10/08/24 11:36 Abdominal Pain [facility] Narrative MDM Narrative:: 54-year-old female patient with recent history of cholecystectomy about 2 months ago, came in for evaluation regarding epigastric pain. Has been having epigastric pain for the last 2 days described as sharp pain, burning-like sensation, radiating to the substernal area, severity moderate. Denies any nausea denies any vomiting. Denies any fever. Denies any other complaints. No medication was taken prior to arrival. Patient's workup today CBC, no leukocytosis noted, LFTs normal lipase is normal ultrasound of the gallbladder came back unremarkable urinalysis positive for UTI. Potassium is 3.0 Patient will be sent home on Bentyl, Keflex, and Protonix Patient data External records reviewed:: None Clinical information provided by:: patient and family Social determinants that could affect healthcare access:: none Patient has the following chronic illnesses:: None How is presenting disease/condition affected by chronic disease/condition?: no chronic disease Evaluation data The following diagnostics were reviewed and interpreted by me:: lab results and radiology exam(s) Lab and/or radiology exams considered but not ordered:: None Interpretation Summary: See results MDM Medications / Prescriptions Medications or Prescriptions considered but not ordered:: None Medication administrations:: Medication Administration History Discontinued Medications Hydrocodone Bitart/Acetaminophen (Hydrocodone/Apap 5/325 Tablet) 1 tab PO X1 ONE Stop: 10/08/24 11:43 Last Admin: 10/08/24 11:54 Dose: 1 tab Documented By: GM Al Hydrox/Mg Hydrox/Simethicone (Mg Hyd/Al Hyd/Heather (Maalox Reg) Susp 30 Ml Udc) 30 ml PO X1 ONE Stop: 10/08/24 11:43 Last Admin: 10/08/24 11:54 Dose: 30 ml Documented By: GM Ondansetron HCl (Ondansetron Odt 4 Mg Tabrap) 4 mg PO X1 ONE; Protocol Stop: 10/08/24 11:43 Last Admin: 10/08/24 11:54 Dose: 4 mg Documented By: GM Potassium Chloride (Potassium Chloride 20 Meq Tabcr) 40 meq PO X1 ONE Stop: 10/08/24 13:51 Potassium Zofran Maalox and Clymer Consultations Consultation(s) initiated? (list below): No Diagnosis Differential diagnosis abdominal pain: abdominal pain, gastroenteritis and pancreatitis Most likely diagnosis given after review of the tests above:: UTI, gastritis, abdominal pain Admission Indicated Admission indicated?: not indicated Admission Request Was there a request for admission?: No Disposition Plan Disposition Plan: Discharge Discharge Attestation Discharge Attestation: The patient and all family members were given an opportunity to ask questions and understood the discharge instructions. Discharge instructions specifically effects, indications for sooner follow up or return to the emergency department, and the expected course of current diagnosis. Patient condition: Stable Discharge Plan Plan Patient Disposition: HOME (Self Care) Discharge Disposition comment: stable Prescriptions/Referrals Prescriptions/Med Rec: New dicyclomine 20 mg tablet 20 mg PO TID PRN (Reason: abdominal pain) Qty: 30 0RF cephalexin 500 mg capsule 500 mg PO TID 7 Days Qty: 21 0RF pantoprazole [Protonix] 40 mg tablet,delayed release (DR/EC) 40 mg PO QDAY Qty: 30 0RF No Action levalbuterol tartrate [Xopenex HFA] 15 GM HFA aerosol inhaler 2 puff Inhalation Q4-6HRPRN Qty: 0 Advair HFA 115-21 mcg/actuation Hfa Aerosol Inhaler 2 puff inhalation BID Qty: 0 albuterol sulfate 90 mcg/actuation Hfa Aerosol Inhaler 2 puff INHALATION Q6H PRN (Reason: Wheezing) hydrocodone-acetaminophen 5-325 mg tablet 1 tab PO Q6H MDD 4 PRN (Reason: pain (scale score 7-10)) Qty: 20 0RF docusate sodium [Colace] 100 mg capsule 100 mg PO BID Qty: 40 0RF ondansetron 4 mg tablet,disintegrating 4 mg PO Q8H PRN (Reason: nausea and vomiting) Qty: 20 0RF cetirizine 10 mg tablet Patient Comments: TOME 1 TABLETA POR VIA ORAL TODOS LOS DOTY Ozempic 0.25 mg or 0.5 mg (2 mg/3 mL) pen injector SUBCUT hyoscyamine sulfate 0.125 mg tablet 0.25 mg PO QID PRN (Reason: abdo pain) 21 Days Qty: 60 0RF Rx Instructions: take 30 minutes before meals Referrals: No Primary/Family,Physician [Primary Care Provider] - In 1 week Problem List Clinical Impression: Abdominal pain, Gastritis, UTI (urinary tract infection) Patient/Caregiver Discharge Instructions Discharge Activity: activity as tolerated Education Materials: ED Gastritis (Adult) Additional Instructions: Thank you for the opportunity for serving you today. You are stable for discharged . You are advised to: Follow-up with your PCP in 1 to 2 days Return to ED for worsening of symptoms Increase oral fluids Take medication as prescribed Print Language: Wallisian Stand Alone Forms: Ruthy Award Info., Patient Portal Info Letter PA/LAMP STACK DEVELOPER Supervising Physician PA/LAMP STACK DEVELOPER Supervising Physician: MD Segun
[2024-10-08] MEDS: POTASSIUM CHLORIDE 20 mEq TABCR 40 MEQ PO (14:11)
== END 2024-10-08 14:16 | disposition home or self-care (01) ==
PROVIDERS: Nurse Practitioner Family; Emergency Provider Family Medicine
DX: K29.70 Gastritis, unspecified, without bleeding (principal); N39.0 Urinary tract infection, site not specified
CPT/HCPCS: 36415; 76705; 80053; 81001; 81025; 83690; 85025; 87077; 87086; 87186; 99284; Q0162; A9270

== ENCOUNTER 2024-10-29 08:48 | Outpatient (AMB) | payer MEDICAID, SELFPAY ==
[2024-10-29 09:07] VITALS: BP 129/85; PULSE 90; RESP 18; TEMP 36.3; O2SAT 95; BMI 37.4
--- NOTE | 2024-10-29 09:07 | PD.ORTHCLVIS ---
Vital signs 10/29/24 09:07 Height 1.63 m Height Method Stated Weight 99.422 kg Weight Measurement Method Standing Scale BMI 37.4 BP 129/85 H Blood Pressure Source Automatic Cuff Blood Pressure Location Left Upper Arm Position Sitting Respiration 18 Pulse 90 Pulse Source Monitor Temp 97.4 F Temp Source Temporal Artery Scan Pulse Oximetry (%) 95 Oxygen Delivery Method Room Air Med/Allergies Allergies & Medications Allergies No Known Allergies Allergy (Verified 10/29/24 09:08) Medication Reconciliation fluticasone propionate 115 mcg-salmeterol 21 mcg/actuation HFA inhaler (Advair HFA) 2 puff inhalation BID ##0 05/15/13 [History Confirmed 10/29/24] levalbuterol tartrate 45 mcg/actuation aerosol inhaler (Xopenex HFA) 2 puff inhalation Q4-6HRPRN #0 puffs 05/15/13 [History Confirmed 10/29/24] albuterol sulfate 90 mcg/actuation aerosol inhaler 2 puff inhalation Q6H PRN Wheezing 02/19/22 [History Confirmed 10/29/24] docusate sodium 100 mg capsule (Colace) 100 mg PO BID #40 caps 02/20/22 [Rx Confirmed 10/29/24] hydrocodone 5 mg-acetaminophen 325 mg tablet 1 tab PO Q6H PRN pain (scale score 7-10) #20 tabs 02/20/22 [Rx Confirmed 10/29/24] ondansetron 4 mg disintegrating tablet 4 mg PO Q8H PRN nausea and vomiting #20 tabs 06/29/24 [Rx Confirmed 10/29/24] cetirizine 10 mg tablet mg 09/16/24 [History Confirmed 10/29/24] semaglutide 0.25 mg or 0.5 mg (2 mg/3 mL) subcutaneous pen injector (Ozempic) mg subcut 09/16/24 [History Confirmed 10/29/24] Held on 09/20/24. Instructions: Resume on 10/04/24. Hold until follow up with PCP given recent bout of pancreatitis dicyclomine 20 mg tablet 20 mg PO TID PRN abdominal pain #30 tabs 10/08/24 [Rx Confirmed 10/29/24] pantoprazole 40 mg tablet,delayed release (Protonix) 40 mg PO QDAY #30 tabs 10/08/24 [Rx Confirmed 10/29/24] Exam Exam Patient is in no acute distress and is cooperative with the examination today. Breathing is nonlabored. In no respiratory distress. Bilateral extremities were evaluated and demonstrates sensation intact to light touch. Palpable pedal pulses are present. No significant edema is present. Bilateral hips were examined. The patient has no pain with log roll of the hips. Internal rotation to 30 degrees and external rotation to 30 degrees is painless. Negative FADIR. The left knee was examined. The left knee is in [varus] alignment. Range of motion from [0-115] degrees. Knee is stable to varus and valgus as well as AP translation with <5mm. Patient has a [negative] McMurrays. There is [no] pain with patellofemoral compression and [no] crepitus noted. The knee is [tender] to palpation [medially]. The right knee was also examined. The right knee is in [varus] alignment. Range of motion from [0-120] degrees. Knee is stable to varus and valgus as well as AP translation with <5mm. Patient has a [negative] McMurrays. There is [no] pain with patellofemoral compression and [no] crepitus noted. The knee is [tender] to palpation [medially]. Patient has bilateral knee osteoarthritis with complete joint space obliteration medially. There is complete joint space obliteration medially Assessment and Plan Problem List (1) Degenerative arthritis of knee, bilateral: Status: Acute Plan: Patient is a pleasant 53-year-old male with bilateral knee pain and bilateral knee arthritis. We discussed nonoperative and operative options. Patient has severe arthritis on both knees with more symptoms on the left. She would like repeat injections on the right knee. The left knee is bothering her significantly and She is interested in surgery as she has failed conservative treatment. She has tried multiple injections, naproxen, anti-inflammatories. She has had 4 injections total. We will get her set up for surgery on the left Recommend knee cortisone injection as patient would like to proceed with conservative treatment at this time. The risks and benefits of the procedure were reviewed with the patient and patient gave verbal consent to continue with the procedure. Procedure: performed by Dr. Mccormack Using sterile technique the Right knee was thoroughly prepped with alcohol, and approximately 1 cc of Kenalog 40 mg/mL and 4 cc of 1% lidocaine was injected without resistance into the medial tibial femoral joint space. The patient tolerated the procedure. The nature and purpose of the Left total knee replacement, alternative method(s) of treatment, the material risks involved, and the possibility of complications were fully explained to the patient. The patient does NOT have any of the following contraindications to TKA: - Active infection of the knee joint, OR - Active systemic bacteremia, OR - Active skin infection or open wound at surgical site, OR - Neuropathic arthritis, OR - Severe, rapidly progressive neurological disease, OR - Severe medical condition that makes risks of surgery outweigh the potential benefit The patient was told the most common risks and complications associated with a total knee replacement include, but are not limited to: blood clots in the leg, fatal pulmonary embolism, dislocation of the prosthesis, intraoperative and postoperative fractures of the femur or tibia, infection, failure of the prosthesis or grafting materials, complications from anesthesia, reactions to blood transfusions, postoperative leg length inequality, instability of the knee replacement, nerve damage or injury, vascular injury, delayed wound healing, infection, other injury or even . In addition, there are risks associated with anesthesia given during this operation. Also, the patient was told that after undergoing a total knee replacement there may still be persistent pain or disability. The patient was informed that the success of this operation in part depends upon the mechanical devices which are going to be implanted and that these devices can fail or malfunction, and may need to be repaired or replaced and there are no guarantees as to the longevity of this device or its parts and that it or its parts could fail prematurely. The patient was also notified that during the course of surgery, there may be a need to use bone graft from donors, and that any bone graft used will be carefully screened for communicable diseases, including AIDS, hepatitis, Ezequiel-Creutzfeldt, or other diseases, but despite the screening procedures, there is a small chance that they could contract one of these diseases. Finally, the patient was asked to follow completely and fully with all advice and recommended treatments, and that recovery and ultimate outcome are affected by their compliance with recommended treatment. We discussed the risks, benefits and treatment alternatives, and the patient is interested in proceeding with surgery. We will try to set this up as expeditiously as possible. Office Procedures GNS Level of Care Nursing/Assessment Patient Status: Established Patient Nursing Assessment/Reassesment: Medication Reconciliation, Update PMH in EMR and Vital Signs Coordination of Care: Complex Care and Chronic Disease 1-5, Education Complex Pt/Fam, Consent,records obtained, informed consent, 2-3 Insurance Autorizations needed, Lab and Imaging orders, Results/Orders obtained and Staff clarify orders Special Needs: Language special needs Established Patient Charge Established Patient Point Assignment: 130 Established Patient Point Charge: EP Level 4 (120-155) Surgical Proc/IM SQ injection Major Surgical Procedure: Yes (KNEE INJECTION ) Medication Given Medication Given Medication Given: Yes Documented Dose Given: 4 Medication Given Medication Given Medication Given: Yes Documented Dose Given: 1 Route: Infiitration Office Meds Xylocaine 10 mg/mL (1 %) injection solution Performing Provider: Charlie Mccormack MD Performing Location: [facility] Administered by: Charlie Mccormack MD on 10/29/24 09:32 Dose Route Admin Location Dispensed Lot Number Expiration Date [facility] Travel [employer] 20 mL Infiltration KNEE 20 mL [id number] 08/19/27 08782-028-17 [facility] triamcinolone acetonide 40 mg/mL suspension for injection Performing Provider: Charlie Mccormack MD Performing Location: [facility] Administered by: Charlie Mccormack MD on 10/29/24 09:32 Dose Route Admin Location Dispensed Lot Number Expiration Date [facility] Travel Occupational Therapist 40 mg intra-articular KNEE 1 mL [id number] 11/17/25 13633-258-48 NICOLE SOFIA MA Intake Visit Data Collection New Patient or Established: Established Patient (seen at [facility] within 3 years) Reason for Visit:: 3 month follow up knee injection Seen by Clinical Staff ONLY (RN/MA): No Verbal consent obtained for Telemed visit?: No Facility Service Associate Required: Yes PCP or OBGYN visit in last 3 months: Yes Hx Now: No Do You Feel Safe at Home: Yes Authorities Contacted: N/A Questionairres Past Medical History Past Medical History Have you ever been diagnosed with any of the following: Neurological Problems Seizures: No Cardiology Problems Congestive Heart Failure: No Edema: No Cellulitis: No Varicose Veins: No Respiratory Problems Chronic Obstructive Pulmonary Disease (COPD): No Asthma: Yes Pneumonia: Yes (HOSP 2012) Smoking: No Smoking Exposure: No Stomache/Intestinal Problems Hepatitis: No Gall Bladder Disease: Yes (LAP) Genital/Urinary Problems Renal Disease: No Reproductive Problems Previous Pregnancies: Yes (X4) Musculoskeletal Problems Arthritis: Yes Fractures: Yes (RIGHT HAND HAS METAL) Endocrine Problems Diabetes Mellitus Type 1: No Diabetes Mellitus Type 2: Yes (ozempic) Blood Problems Sickle Cell Disease: No Other Problems Hospitalization: Yes ([facility]) Shingles: No Falls: No Blood Transfusions: No Blood Transfusion Reaction: No Anesthesia Reactions: No Chemotherapy: No MRSA: No Chicken Pox: No Measles: No Mumps: No Cancer: No Surgical History Pacemaker: No Subjective Visit Visit for: follow up visit, knee (BILATERAL) and injections Immunization / Flu Flu Vaccine in the Last 12 Months: No Flu Vaccine Exclusion Criteria: No Exclusion Criteria History of Present Illness Chief complaint: Bilateral knee pain Patient is a pleasant 54-year-old female with bilateral knee pain and bilateral knee arthritis of significant severity. She had injections at the last visit and that lasted for more than 3 months. She would like new injection today on the right. The pain is miserable and she would like to start the surgery process on the left. She has tried naproxen, multiple injections, diclofenac cream, and home exercises. Personal History Red flag PMH: BMI BMI Counceling provided: Yes Pain Pain level (0-10): 10 Pain duration: all day Pain location: inside (medial), outside (lateral), anterior and posterior Pain quality: sharp, dull and aching Pain timing: increases with activity Ambulatory data Ambulatory device: none Treatments Number of previous injections: 2 Improvement with previous injections: Yes Improvement with PT: No Improvement with NSAIDS: no Review of Systems Review of Systems: All systems negative unless otherwise noted in HPI.
== END 2024-10-29 09:20 | disposition home or self-care (01) ==
LOC: HODSRG 08:48
PROVIDERS: PCP Internal Medicine; Referring Provider Internal Medicine; Supervising Provider Orthopaedic Surgery Adult Reconstructive Orthopaedic Surgery; Visit Provider Orthopaedic Surgery Adult Reconstructive Orthopaedic Surgery
DX: M17.0 Bilateral primary osteoarthritis of knee (principal); M25.562 Pain in left knee; M25.561 Pain in right knee; E11.9 Type 2 diabetes mellitus without complications
CPT/HCPCS: 20610; 99214; J3301; J3490; G0463

== ENCOUNTER 2024-11-22 16:14 | Inpatient (IN) | payer MEDICAID, SELFPAY ==
[2024-11-22] VITALS (7 sets, daily range): BP systolic 107–133; BP diastolic 61–95; PULSE 103–132; RESP 16–32; TEMP 37.3–39.5; O2SAT 93–96; BMI 38.2
--- NOTE | 2024-11-22 17:08 | PD.EDRME ---
Rapid Medical Screening Exam RME Arrival date/time: 11/22/24 16:14 This is a 54-year-old female that comes into the emergency room with complaints of fever, bilateral ear pain, sore throat, headache, right flank pain and poor appetite. Patient was recently admitted for gram-negative bacteremia and admitted for pyelonephritis, pancreatitis and common bile duct obstruction. She underwent ERCP on September 06, [address] Killian. Her metal stent was replaced with a plastic stent. Patient states she also hit her head a couple days ago no loss of consciousness but states she feels off. I have greeted and performed a focused initial assessment of this patient. Initial appropriate labs ordered at this time. A comprehensive ED assessment and evaluation of the patient and analysis of all test and completion of medical decision making process will be conducted by additional ED provider. Chief Complaint: General Adult/Misc Complain Time Seen by Provider: 11/22/24 17:02 Vital signs: Vital Signs Temperature 103.1 F H 11/22/24 16:57 Pulse Rate 132 H 11/22/24 16:57 Respiratory Rate 20 11/22/24 16:57 Blood Pressure 130/87 H 11/22/24 16:57 Pulse Oximetry (%) 96 11/22/24 16:57 Oxygen Delivery Method Room Air 11/22/24 16:57
--- NOTE | 2024-11-22 17:13 | XR_ITS ---
Examination: CT brain head without contrast. 2-D sagittal coronal reconstructions Date and time of exam:November 22, 2024 at 1847 hours INDICATIONS: Syncopal episode today, patient fell with injury to the head head pain CTDI: vol (mGy):49.9 DLP: (mGycm):998 Technique: Multiple CT axial sections of the brain have been obtained, 5 mm slice thickness. Contrast has not been administered. 2-D sagittal, coronal reconstructions have been obtained Low dose protocols were performed. One or more of the following dose reduction techniques were used; automated exposure control, adjustment of the mA and/or KV according to patient size, use of iterative reconstruction technique. Findings: No significant ventricular enlargement. Intra-axial or extra-axial hemorrhage density is not seen. No mass effect or midline shift Basal cisterns are not remarkable. Fourth ventricle is midline. Cranial vault intact. Impression: Negative for acute hemorrhage, mass effect or midline shift
--- NOTE | 2024-11-22 17:15 | PC.NURSE ---
Patient to er [facility] to room 1 with c/o right flank pain, left ear pain, nausea and fever. Dr. Bridges at bedside, new orders recieved, sepsis alert called for elevated temp and HR.
--- NOTE | 2024-11-22 17:20 | EDNOTE_ITS ---
ED Abdominal Pain RME/HPI General Chief Complaint: General Adult/Misc Complain Stated complaint: FEVER, SINCE LAST NIGHT RIGHT KIDNEY PAIN Time seen by provider: 11/22/24 17:02 Arrival date/time: 11/22/24 16:14 Limitations: no limitations RME / HPI RME / HPI narrative: 11/22/24 16:14 This is a 54-year-old female that comes into the emergency room with complaints of fever, bilateral ear pain, sore throat, headache, right flank pain and poor appetite. Patient was recently admitted for gram-negative bacteremia and admitted for pyelonephritis, pancreatitis and common bile duct obstruction. She underwent ERCP on September 06, [address] Killian. Her metal stent was replaced with a plastic stent. Patient states she also hit her head a couple days ago no loss of consciousness but states she feels off. I have greeted and performed a focused initial assessment of this patient. Initial appropriate labs ordered at this time. A comprehensive ED assessment and evaluation of the patient and analysis of all test and completion of medical decision making process will be conducted by additional ED provider. DR. TSANG MAIN ED EVALUATION: 54 year old female with history of diabetes presents to the ED BIBA from home for evaluation of right flank pain beginning at 02:00 AM. Pain described as aching in sensation that is located most to the right flank with radiation to right mid abdomen, rating as moderate. Accompanied by fever (highest recorded temperature at home 105F), bilateral ear pain (L>R), and nausea. Reportedly has taken Tylenol at home with minimal improvement. Denies sore throat, chest pain, cough, shortness of breath, v/d, or urinary symptoms. Related Data Home Medications ?Medication ?Instructions ?Recorded ?Confirmed fluticasone propionate 115 2 puff inhalation BID ##0 1 07/16/12 10/29/24 mcg-salmeterol 21 mcg/actuation HFA inhaler (Advair HFA) levalbuterol tartrate 45 2 puff inhalation Q4-6HRPRN #0 05/15/13 10/29/24 mcg/actuation aerosol inhaler puffs (Xopenex HFA) albuterol sulfate 90 mcg/actuation 2 puff inhalation Q 6H PRN Wheezing 02/19/22 10/29/24 aerosol inhaler cetirizine 10 mg tablet mg 09/16/24 10/29/24 semaglutide 0.25 mg or 0.5 mg (2 mg subcut 09/16/24 mg/3 mL) subcutaneous pen injector (Ozempic) Held on 09/20/24. Instructions: Resume on 10/04/24. Hold until follow up with PCP given recent bout of pancreatitis Previous Rx's ?Medication ?Instructions ?Recorded docusate sodium 100 mg capsule 100 mg PO BID #40 caps 02/20/22 (Colace) hydrocodone 5 mg-acetaminophen 325 1 tab PO Q6H PRN pa in (scale score 02/20/22 mg tablet 7-10) #20 tabs ondansetron 4 mg disintegrating 4 mg PO Q8H PRN nausea and 06/29/24 tablet vomiting #20 tabs dicyclomine 20 mg tablet 20 mg PO TID PRN abdominal p ain 10/08/24 #30 tabs pantoprazole 40 mg tablet,delayed 40 mg PO QDAY #30 ta bs 10/08/24 release (Protonix) Allergies Allergy/AdvReac Type Severity Reaction Status Date / Time No Known Allergies Allergy Verified 11/22/24 16:17 Review of Systems Review of Systems Systems Reviewed: All systems reviewed, normal except as documented Past Medical History Past Medical History RESPIRATORY: Positive Asthma and Pneumonia (HOSP 2012) GASTROINTESTINAL: Positive Gastrointestinal Disorders and Gall Bladder Disease (LAP) REPRODUCTIVE: Positive Previous Pregnancies (X4) MUSCULOSKELETAL: Positive Musculoskeletal Disorders, Arthritis and Fractures (RIGHT HAND HAS METAL) ENDOCRINE: Positive Endocrine Disorders (PREDIABETES NO MED) and Diabetes Mellitus Type 2 (ozempic) OTHER HISTORY: Positive Hospitalization (HOSP FOR PNUEMONIA) and Autoimmune Disease (FATHER (EPILEPSY)) Family History FAMILY HISTORY: Positive Family Respiratory Disorders (SISTER (ASTHMA)), Family Cardiac Disorders (MOTHER,SISTER (HTN)MOTHER (CA)), Family Gastrointestinal Problems (SISTERS (GALL BLADDER)) and Family Surgery (SISTER,MOTHER) Surgical History SURGICAL: Positive Tubal Ligation and Section (X3) Social History SMOKING STATUS: Never smoker ED Exam General Limitations: Present no limitations General appearance: Present alert and in no apparent distress Head Head exam: Present atraumatic, normocephalic and normal inspection Eye Eye exam: Present normal appearance, PERRL and EOMI ENT ENT exam: Present normal exam, normal oropharynx and mucous membranes moist Neck Neck exam: Present normal inspection, full ROM and trachea midline Chest Chest inspection: Present normal inspection and symmetric chest wall rise Respiratory Respiratory exam: Present normal lung sounds bilaterally Cardiovascular Cardiovascular exam: Present normal rhythm, tachycardia and normal heart sounds Abdominal Exam Abdominal exam: Present soft and normal bowel sounds Extremities Exam Extremities exam: Present normal inspection and full ROM Back Exam Back exam: Present normal inspection and full ROM Neurological Exam Neurological exam: Present alert, oriented X3 and CN II-XII intact Psychiatric Psychiatric exam: Present normal affect and normal mood Skin Skin exam: Present warm, dry, intact and normal color Course Quality Measures Current suspected stage: sepsis Possible source: unknown (source unknown during sign out. ) Blood cultures ordered: completed in ED Antibiotic ordered: Yes Pertinent labs: 11/22/24 17:20 Lactic Acid 1.9 mMol/L (0.4-2.0) Procalcitonin 0.37 ng/ml (0.0-0.49) sepsis Orders Category Date Time Status Bedside COVID-19 Antigen Test NOW Care 11/22/24 17:08 Active Bedside Influenza A&B Antigen Test NOW Care 11/22/24 17:[address] Screening NOW Care 11/22/24 17:22 Active Saline [Insert IV] NOW Care 11/22/24 18:[address] chest abdomen pelvis wo Stat Exams 11/22/24 18:[address] head/brain wo con Stat Exams 11/22/24 17:13 Completed US gall bladder Stat Exams 11/22/24 18:16 Taken XR chest 1V portable Stat Exams 11/22/24 18:41 Completed Bilirubin,Direct Stat Lab 11/22/24 17:20 Completed Blood Culture (Lab) Stat Lab 11/22/24 17:28 Received C-Reactive Protein Stat Lab 11/22/24 17:20 Completed CBC Stat Lab 11/22/24 17:20 Completed Comprehensive Metabolic Panel Stat Lab 11/22/24 17:20 Completed HCG Qualitative,Urine Stat Lab 11/22/24 19:14 Completed Lactate (Lactic Acid) Stat Lab 11/22/24 17:20 Completed Lipase Stat Lab 11/22/24 17:20 Completed Magnesium Stat Lab 11/22/24 17:20 Completed Procalcitonin Stat Lab 11/22/24 17:20 Completed RSV [Respiratory Syncytial Virus Ag] Stat Lab 11/22/24 18:25 Completed Sed Rate (ESR) Stat Lab 11/22/24 17:20 Completed Strep A Rapid Stat Lab 11/22/24 18:25 Completed Urinalysis, C/S if Indicated Stat Lab 11/22/24 19:14 Completed Urine Culture Stat Lab 11/22/24 17:07 Received Acetaminophen Tab [Tylenol ES Tab] Med 11/22/24 17:06 Discontinued 1,000 mg PO X1 ONE Azithromycin Inj [Zithromax Inj] 500 mg Med 11/22/24 19:44 Active Sodium Chloride 0.9% 250 ml [Ns] 250 ml IV X1 KCL 10% Liq UDC 15 ML Med 11/22/24 18:27 Discontinued 40 meq PO X1 ONE Ketorolac Inj [Toradol Inj] Med 11/22/24 18:16 Discontinued 30 mg IVP X1 ONE Morphine Inj Med 11/22/24 18:16 Discontinued 4 mg IVP X1 ONE Sodium Chloride 0.9% 1000 ml [Ns] 2,994 ml Med 11/22/24 17:21 Discontinued IV 2,994 mls/hr cefTRIAXone/D5w 1gm IV premix [Rocephin/D5w 1gm IV Med 11/22/24 18:16 Discontinued premix] 1 gm in 50 ml IV X1 Vital Signs Vital signs: Vital Signs Temperature 103.1 F H 11/22/24 16:57 Pulse Rate 132 H 11/22/24 16:57 Respiratory Rate 20 11/22/24 16:57 Blood Pressure 130/87 H 11/22/24 16:57 Pulse Oximetry (%) 96 11/22/24 16:57 Oxygen Delivery Method Room Air 11/22/24 16:57 Pulse ox is 96% on room air which is adequate. Abdominal Pain MDM MDM Narrative MDM Narrative:: Natalia Argueta am scribing for and in the presence of Dr. Tsang. 1800: Patient signed out to Dr. Bautista pending labs, imaging, and final disposition. Patient data External records reviewed:: [facility] previous records (I reviewed admission from 09/15/2024 through 09/20/2024. Patient was admitted for pyelonephritis and common bile duct obstruction. Underwent ERCP on 09/06/2024 with replacement on 09/17/[address] Killian.) Clinical information provided by:: patient Social determinants that could affect healthcare access:: none Patient has the following chronic illnesses:: Diabetes How is presenting disease/condition affected by chronic disease/condition?: uneffected by Evaluation data The following diagnostics were reviewed and interpreted by me:: lab results and EKG tracing(s) (Sinus tachycardia, rate 132, nonspecific ST or T-wave abnormality. ) Lab and/or radiology exams considered but not ordered:: None Interpretation Summary: As noted above Medications / Prescriptions Medications or Prescriptions considered but not ordered:: None Medication administrations:: Medication Administration History Azithromycin 500 mg/ Sodium (Chloride) 250 mls @ 250 mls/hr IV X1 ONE Stop: 11/22/24 20:43 Last Admin: 11/22/24 20:33 Dose: 250 mls/hr Documented By: KUNAL Discontinued Medications Acetaminophen (Acetaminophen 500 Mg Tablet) 1,000 mg PO X1 ONE Stop: 11/22/24 17:07 Last Admin: 11/22/24 17:49 Dose: 1,000 mg Documented By: EUFEMIA Sodium Chloride (Ns) 2,994 mls @ 2,994 mls/hr 30 ml/kg infuse over 60 min (2994 ml) IV .Q1H ONE; Protocol Stop: 11/22/24 18:20 Last Infusion: 11/22/24 20:00 Dose: Infused Documented By: Admin: 11/22/24 17:38 Dose: 2,994 mls/hr Documented By: EUFEMIA Ceftriaxone Sodium/Dextrose (Rocephin/D5w 1gm Iv Premix) 1 gm in 50 mls @ 100 mls/hr IV X1 ONE Stop: 11/22/24 18:45 Last Infusion: 11/22/24 20:14 Dose: Infused Documented By: Admin: 11/22/24 19:26 Dose: 100 mls/hr Documented By: ALMA Ketorolac Tromethamine (Ketorolac Inj 30 Mg/Ml Vial) 30 mg IVP X1 ONE Stop: 11/22/24 18:17 Last Admin: 11/22/24 19:25 Dose: 30 mg Documented By: ALMA Morphine Sulfate (Morphine Sulf Inj 10 Mg/Ml Vial) 4 mg IVP X1 ONE Stop: 11/22/24 18:17 Last Admin: 11/22/24 19:25 Dose: 4 mg Documented By: ALMA Potassium Chloride (Potassium Chloride 10% 20 Meq/15 Ml Udc) 40 meq PO X1 ONE Stop: 11/22/24 18:28 Last Admin: 11/22/24 19:25 Dose: 40 meq Documented By: CB See above Consultations Consultation(s) initiated? (list below): No Diagnosis Differential diagnosis abdominal pain: abdominal pain, calculus of kidney and other Most likely diagnosis given after review of the tests above:: Sepsis Admission Indicated Admission indicated?: not indicated Explain why admission is indicated or not indicated:: Signed out pending final disposition. Admission Request Was there a request for admission?: No Disposition Plan Disposition Plan: other (specify) (Signed out to Dr. Bautista. ) Discharge Plan Prescriptions/Referrals Prescriptions/Med Rec: No Action levalbuterol tartrate [Xopenex HFA] 15 GM HFA aerosol inhaler 2 puff Inhalation Q4-6HRPRN Qty: 0 Advair HFA 115-21 mcg/actuation Hfa Aerosol Inhaler 2 puff inhalation BID Qty: 0 albuterol sulfate 90 mcg/actuation Hfa Aerosol Inhaler 2 puff INHALATION Q6H PRN (Reason: Wheezing) hydrocodone-acetaminophen 5-325 mg tablet 1 tab PO Q6H MDD 4 PRN (Reason: pain (scale score 7-10)) Qty: 20 0RF docusate sodium [Colace] 100 mg capsule 100 mg PO BID Qty: 40 0RF ondansetron 4 mg tablet,disintegrating 4 mg PO Q8H PRN (Reason: nausea and vomiting) Qty: 20 0RF dicyclomine 20 mg tablet 20 mg PO TID PRN (Reason: abdominal pain) Qty: 30 0RF pantoprazole [Protonix] 40 mg tablet,delayed release (DR/EC) 40 mg PO QDAY Qty: 30 0RF cetirizine 10 mg tablet Patient Comments: TOME 1 TABLETA POR VIA ORAL TODOS LOS DOTY Ozempic 0.25 mg or 0.5 mg (2 mg/3 mL) pen injector SUBCUT Referrals: No Primary/Family,Physician [Primary Care Provider] - In 1 week Patient/Caregiver Discharge Instructions Print Language: Burmese
[2024-11-22] MEDS: SODIUM CHLORIDE 0.9% 2994 ML IV (17:38)
[2024-11-22 17:40] LABS: Lactate (Lactic Acid) 1.9 mMol/L (0.4-2.0)
[2024-11-22 17:42] LABS: Basophils # (Auto) 0.1 Thou/mm3 (0.0-0.2); Basophils % (Auto) 0 % (0-2.5); Eosinophils # (Auto) 0.0 Thou/mm3 (0.0-0.5); Eosinophils % (Auto) 0 % (0-10); Hematocrit 39.3 % (36.0-46.0); Hemoglobin 12.9 g/dL (12.0-16.0); Immature Granulocytes Auto 0.08 Thou/mm3 (0.00-0.00); Lymphocytes # (Auto) 1.3 Thou/mm3 (1.0-4.8); Lymphocytes % (Auto) 8 % (10-50); Mean Corpuscular HGB Conc 32.8 g/dl (31.0-37.0); Mean Corpuscular Hemoglobin 30.0 pg (25.0-35.0); Mean Corpuscular Volume 91 fL (80-100); Monocytes # (Auto) 1.1 Thou/mm3 (0.0-0.8); Monocytes % (Auto) 7 % (0-12); Neutrophils # (Auto) 12.6 Thou/mm3 (1.8-7.7); Neutrophils % (Auto) 84 % (37-80); Nucleated Red Blood Cell # 0.00 Thou/mm3 (0.00-0.00); Nucleated Red Blood Cell % 0 /100 WBC (0); Platelet Count 230 Thou/mm3 (140-440); RDW Standard Deviation 45.2 fL (36.4-46.3); Red Blood Count 4.30 Miln/mm3 (4.00-5.20); White Blood Count 15.0 Thou/mm3 (3.6-11.0)
[2024-11-22] MEDS: ACETAMINOPHEN 500 MG TABLET 1000 MG PO (17:49)
--- NOTE | 2024-11-22 18:06 | PD.EDADDENDU ---
Emergency Room Addendum <La Han - Last Filed: 11/22/24 21:40> Addendum Narrative: I took over the care from previous shift physician, Dr. Tsang, at 1800 on 11/22/2024. See previous notes for complete H & P and ED course. I reviewed all diagnostic test results. My interpretation of the chest x-ray is basilar bronchitis pattern. My review of the US gallbladder report is NAD. My review of the CT head report is NAD. My review of the CT chest abdomen pelvis report is: - Bibasilar pneumonia - Suspect primary hepatocellular disease - Biliary stent satisfactory position - Nonobstructing right renal calculi - Minimal right perinephric stranding. Blood tests remarkable for WBC 15.0, Potassium 3.0, ESR 4.3, CRP 6.8. UA remarkable for positive nitrites, positive leukocyte esterase, 17 RBCs, and 1+ bacteria. COVID/Influenza/RSV negative. Diagnoses include: Treatment here from me included Morphine, Toradol, Potassium, Rocephin, and Azithromycin. I discussed the case with our hospitalist. About the presentation and exam and diagnostics and treatments here. And need of further care in the hospital. Will accept the patient. Sathish Bautista MD <Sathish Bautista MD - Last Filed: 11/22/24 22:26> Addendum Narrative: I took over the care from previous shift physician, Dr. Tsang, at 1800 on 11/22/2024. See previous notes for complete H & P and ED course. I reviewed all diagnostic test results. My interpretation of the chest x-ray is infiltrates. My review of the US gallbladder report is NAD. My review of the CT head report is NAD. My review of the CT chest abdomen pelvis report is bilateral pneumonia. Blood tests remarkable for WBC 15.0, Potassium 3.0, ESR 4.3, CRP 6.8. UA remarkable for positive nitrites, positive leukocyte esterase, 17 RBCs, and 1+ bacteria. COVID/Influenza/RSV negative. Diagnoses include: Sepsis, pneumonia, and UTI. Treatment here from me included IV fluid, morphine, Toradol, Potassium, Rocephin, and Azithromycin. Some improvement noted. I discussed the case with our hospitalist. About the presentation and exam and diagnostics and treatments here. And need of further care in the hospital. Will accept the patient. Sathish Bautista MD
[2024-11-22 18:08] LABS: Alanine Aminotransferase 18 U/L (10-49); Albumin, Serum 4.0 gm/dL (3.5-5.0); Albumin/Globulin Ratio 1.1 (1.2-2.2); Alkaline Phosphatase 95 U/L (46-116); Anion Gap 13 (7-16); Aspartate Amino Transferase 18 U/L (0-34); BUN/Creatinine Ratio 6 Ratio (12-20); Bilirubin,Total 1.4 mg/dL (0.3-1.2); Blood Urea Nitrogen < 5 mg/dL (9-23); Calcium 8.7 mg/dL (8.3-10.6); Calcium (Corrected) 8.7 mg/dL (8.5-10.1); Carbon Dioxide 20.7 mMol/L (20.0-31.0); Chloride 105 mMol/L (98-107); Creatinine (Component) 0.9 mg/dL (0.6-1.3); Globulin 3.6 gm/dL (2.3-3.5); Glucose 178 mg/dL (74-106); Lipase 29 U/L (12-53); Osmolality,Calculated 278 (275-295); Potassium 3.0 mMol/L (3.4-5.1); Procalcitonin 0.37 ng/ml (0.0-0.49); Sodium 139 mMol/L (136-145); Total Protein 7.6 gm/dL (5.7-8.2); eGFR > 60 See Note
--- NOTE | 2024-11-22 18:16 | XR_ITS ---
Examination: CT chest, without intravenous contrast. CT abdomen, without intravenous contrast. CT pelvis, without intravenous contrast. 2-D sagittal and coronal reconstructions. 3-D reconstructions. Date and time of exam:November 22, 2024, 1849 hours , History kidney stones September 14, 2024 exam INDICATIONS: Chest pain and shortness of breath abdominal pain today CTDI vol (mgy) 14.7 DLP ([id number])[id number] Technique: Multiple CT images, 3.0 mm slice thickness, obtained chest, abdomen, pelvis, with the high-resolution 64 slice scanner.. Sagittal and coronal 2-D reconstructions are obtained. 3-D reconstructions Low dose protocols were performed. One or more of the following dose reduction techniques were used; automated exposure control, adjustment of the mA and/or KV according to patient size, use of iterative reconstruction technique. Findings: No thoracic aortic aneurysm dilatation Pulmonary artery segments are not enlarged. Pneumonia at the lung bases Trace pericardial thickening There are irregular in contour with fatty infiltration, pneumobilia Absent gallbladder Biliary stent satisfactory position No splenic or pancreatic lesion 7 mm 4 mm right renal calculi, minimal right perinephric stranding No hydronephrosis or ureteral calculi No pericecal inflammatory change No pelvic mass No bladder mass or bladder calculi Moderate osteopenia IMPRESSION: Bibasilar pneumonia Suspect primary hepatocellular disease Biliary stent satisfactory position Nonobstructing right renal calculi Minimal right perinephric stranding, consider urinary tract infection
--- NOTE | 2024-11-22 18:16 | XR_ITS ---
Examination: Abdomen sonogram, Limited Date and time of exam: November 22, 2024 2014 hours INDICATIONS: Epigastric pain beginning 2 weeks ago Technique: Real-time andrew scale transabdominal sonographic images of the upper abdomen obtained. Findings: Absent gallbladder No common bile duct 0.5 cm Pancreatic head 2.2 cm Liver 19.8 cm fatty infiltration no focal liver lesions Normal hepatopedal portal venous flow Patent IVC IMPRESSION: Absent gallbladder. Normal common bile duct Moderate hepatomegaly
[2024-11-22 18:29] LABS: Sed Rate (ESR) 43 mm/hr (0-30)
--- NOTE | 2024-11-22 18:41 | XR_ITS ---
Examination: AP chest single view TECHNIQUE: AP portable sitting chest single view Date and time: November 22, 2024, 1902 hours Comparison September 14, 2024 INDICATIONS: Fever weakness today. FINDINGS: Bibasilar atelectasis Accentuation of basilar bronchovascular markings. No lobar pneumonia. Normal heart size IMPRESSION: Basilar bronchitis pattern
--- NOTE | 2024-11-22 18:42 | PC.NURSE ---
Patient gone to ct with transporter
[2024-11-22 18:59] LABS: Strep A Rapid Negative (Negative)
[2024-11-22 19:02] LABS: Respiratory Syncytial Virus Ag Negative (Negative)
[2024-11-22 19:22] LABS: Bilirubin,Direct 0.4 mg/dL (0.0-0.3); C-Reactive Protein 6.8 mg/dL (0.0-0.9); Magnesium 1.7 mg/dL (1.6-2.6)
[2024-11-22] MEDS: MORPHINE SULF INJ 10 MG/ML VIAL 4 MG IVP (19:25)
[2024-11-22] MEDS: KETOROLAC INJ 30 MG/ML VIAL IVP (19:25)
[2024-11-22] MEDS: POTASSIUM CHLORIDE 10% 20 MEQ/15 ML UDC 40 MEQ PO (19:25)
[2024-11-22 19:26] LABS: Collection Type, Urine Voided
[2024-11-22] MEDS: cefTRIAXone/D5w 1gm IV premix 1 GM/50 ML BAG IV (19:26)
[2024-11-22 19:34] LABS: HCG Qualitative,Urine Negative
[2024-11-22 19:35] LABS: Bacteria,Urine 1+; Bilirubin,Urine Negative (Negative); Blood,Urine Trace (Negative); Clarity,Urine Clear (Clear/Hazy); Color,Urine Lt-Yellow (Lt Yel-Yel); Glucose, Urine Negative (Negative); Ketones,Urine 1+ (Negative); Leukocyte Esterase,Urine Positive (Negative); Nitrite,Urine Positive (Negative); PH,Urine 6.5 (5.0-7.0); Protein,Urine Negative (Neg - Trace); RBC,Urine 2 /hpf (0-3); Specific Gravity,Urine 1.008 (1.001-1.035); Squamous Epithelial Cell,Urine 1 /hpf (0-5); Urobilinogen,Urine Negative mg/dL (0.0-1.0); WBC,Urine 17 /hpf (0-5)
[2024-11-22 19:38] LABS: Culture Indicated,Urine Yes
[2024-11-22] MEDS: AZITHROMYCIN INJ 500 MG in SODIUM CHLORIDE 0.9% 250 ML 250 ML 250 MG IV (20:33)
--- NOTE | 2024-11-22 21:11 | ESHP_ITS ---
Documentation for date of: 11/22/24 HPI History of Present Illness Chief complaint: Lower back pain, fever History of present illness: 54-year-old female with past medical history of insulin-dependent type 2 diabetes on Ozempic, recurrent pyelonephritis, cholecystectomy status post stent placement presenting to the ED on 11/22 with fever and lower back pain. Patient presents with her bedside who states that she has been having lower back pain along with some fever starting on 11/21 which has progressively worsened. Patient denies having any dysuria, hematuria but does state that her lower back pain is situated at the flank region and radiates to her suprapubic region. Patient has also been having fever and chills at home but does not know what temperature she has had. Of note, patient was recently admitted several months ago for similar presentation was found to have pyelonephritis on imaging. Patient has 1 sexual partner, her , who is bedside. Patient denies having any other concerning symptoms such as chest pain, shortness of breath, diarrhea, vomiting, dizziness or new headaches. Patient does have an appointment with her PCP on 11/24 for annual physical. Medical history: As stated above Surgical history: Cholecystectomy, hernia repair Allergies: NKDA Medications: Pending official med rec Family history: Noncontributory Social history: Patient lives in [place] with , denies tobacco, alcohol or illicit drug use. ROS: All 12 systems assessed and the patient denies unless otherwise stated in HPI In the ED, patient presented mildly hypertensive 130/87, tachycardic heart rate 132, respiratory rate 20, febrile with a temperature 103.1 but saturating 96 on room air. Pertinent lab findings include WBC of 15, potassium of 3, lactic acid of 1.9, T. bili of 1.4, D bili at 0.4, CRP of 6.8, ESR 43, Pro-Benoit 0.37. Urinalysis showed positive leukocyte esterase, nitrites, +[address] head was ordered which showed no acute findings, CT abdomen chest pelvis showed bibasilar pneumonia, primary hepatocellular disease, biliary stent in satisfactory position, nonobstructing right renal calculi and minimal right perinephric stranding. Gallbladder ultrasound shows an absent gallbladder, common bile duct within normal limits and chest x-ray showed basilar bronchitis pattern. Patient will be admitted for sepsis secondary to pyelonephritis and possibly superimposed bibasilar pneumonia and will be treated with IV antibiotics. Exam Vital Signs Temp Pulse Resp BP Pulse Ox O2 Del Method 99.5 F 103 H 18 107/61 95 Room Air 11/22/24 20:42 11/22/24 20:42 11/22/24 20:42 11/22/24 20:42 11/22/24 20:42 11/22/24 20:42 Narrative Exam Physical Exam: GENERAL: Awake, diaphoretic, answering questions appropriately in Belarusian, appears stated age, obese HEENT: NC/AT. Moist mucosa. PERRLA/EOMI. CARDIO: Heart RRR, no obvious murmurs, no JVD. PULM: No coughing or visible SOB. Lungs CTA B/L. GI: Abdomen soft, NT/ND, +BS. URO/BRIM CUTTER: No CVA tenderness SKIN/MSK/EXT: No wounds/discoloration/rashes/edema/amputations. +Pedal pulses present B/L. NEURO: Oriented x3, Moves extremities x4, No focal neurologic deficits Results: Labs 11/22/24 17:20 11/22/24 17:20 Labs: Short CBC 11/22/24 Range/Units 17:20 WBC 15.0 H (3.6-11.0) Thou/mm3 Hgb 12.9 (12.0-16.0) g/dL Hct 39.3 (36.0-46.0) % Plt Count 230 (140-440) Thou/mm3 BMP 11/22/24 17:20 Sodium 139 Potassium 3.0 L Chloride 105 Carbon Dioxide 20.7 BUN < 5 L Creatinine 0.9 Glucose 178 H Calcium 8.7 Liver Function 11/22/24 Range/Units 17:20 Total Bilirubin 1.4 H (0.3-1.2) mg/dL Direct Bilirubin 0.4 H (0.0-0.3) mg/dL AST 18 (0-34) U/L ALT 18 (10-49) U/L Alkaline Phosphatase 95 (46-116) U/L Albumin 4.0 (3.5-5.0) gm/dL Urine 11/22/24 Range/Units 19:14 Urine Color Lt-Yellow (Lt Yel-Yel) Urine Clarity Clear (Clear/Hazy) Urine pH 6.5 (5.0-7.0) Ur Specific [place] 1.008 (1.001-1.035) Urine Protein Negative (Neg - Trace) Urine Glucose (UA) Negative (Negative) Quality Measures Quality Measures sepsis Current suspected stage: sepsis Possible source: unknown (source unknown during sign out. ) Blood cultures ordered: completed in ED Antibiotic ordered: Yes Medications Home Medications and Allergies Home Medications ?Medication ?Instructions ?Recorded ?Confirmed ?Type fluticasone propionate 115 2 puff inhalation BID ##0 1 07/16/12 10/29/24 History mcg-salmeterol 21 mcg/actuation HFA inhaler (Advair HFA) levalbuterol tartrate 45 2 puff inhalation Q4-6HRPRN #0 05/15/13 10/29/24 History mcg/actuation aerosol inhaler puffs (Xopenex HFA) albuterol sulfate 90 mcg/actuation 2 puff inhalation Q 6H PRN Wheezing 02/19/22 10/29/24 History aerosol inhaler cetirizine 10 mg tablet mg 09/16/24 10/29/24 History semaglutide 0.25 mg or 0.5 mg (2 mg subcut 09/16/24 History mg/3 mL) subcutaneous pen injector (OzActive Optical MEMSic) Held on 09/20/24. Instructions: Resume on 10/04/24. Hold until follow up with PCP given recent bout of pancreatitis Allergies Allergy/AdvReac Type Severity Reaction Status Date / Time No Known Allergies Allergy Verified 11/22/24 16:17 Visit Medications Acetaminophen (Acetaminophen 325 Mg Tablet) 650 mg PO Q6H PRN PRN Reason: Pain 1-3 and/or Fever >100.1 Stop: 12/22/24 21:06 Heparin Sodium (Porcine) (Heparin Sod Inj 5000 Unit/Ml Vial) 5,000 unit SC Q12HR LUIS A Stop: 12/07/24 08:59 Ceftriaxone Sodium/Dextrose (Rocephin/D5w 1gm Iv Premix) 1 gm in 50 mls @ 100 mls/hr IV QDAY LUIS A Stop: 11/30/24 08:59 Azithromycin 250 mg/ Sodium (Chloride) 250 mls @ 250 mls/hr IV QDAY LUIS A Stop: 11/27/24 08:59 Ondansetron HCl (Ondansetron Inj 2 Mg/Ml Inj 2 Ml) 4 mg IVP Q6H PRN; Protocol PRN Reason: NAUSEA OR VOMITING Stop: 12/22/24 21:06 Sennosides (Senna Tablet) 1 tab PO QDAY PRN; Protocol PRN Reason: constipation Stop: 12/22/24 21:06 Discontinued Medications Acetaminophen (Acetaminophen 500 Mg Tablet) 1,000 mg PO X1 ONE Stop: 11/22/24 17:07 Last Admin: 11/22/24 17:49 Dose: 1,000 mg Sodium Chloride (Ns) 2,994 mls @ 2,994 mls/hr 30 ml/kg infuse over 60 min (2994 ml) IV .Q1H ONE; Protocol Stop: 11/22/24 18:20 Last Infusion: 11/22/24 20:00 Dose: Infused Ceftriaxone Sodium/Dextrose (Rocephin/D5w 1gm Iv Premix) 1 gm in 50 mls @ 100 mls/hr IV X1 ONE Stop: 11/22/24 18:45 Last Infusion: 11/22/24 20:14 Dose: Infused Azithromycin 500 mg/ Sodium (Chloride) 250 mls @ 250 mls/hr IV X1 ONE Stop: 11/22/24 20:43 Last Admin: 11/22/24 20:33 Dose: 250 mls/hr Ketorolac Tromethamine (Ketorolac Inj 30 Mg/Ml Vial) 30 mg IVP X1 ONE Stop: 11/22/24 18:17 Last Admin: 11/22/24 19:25 Dose: 30 mg Morphine Sulfate (Morphine Sulf Inj 10 Mg/Ml Vial) 4 mg IVP X1 ONE Stop: 11/22/24 18:17 Last Admin: 11/22/24 19:25 Dose: 4 mg Potassium Chloride (Potassium Chloride 10% 20 Meq/15 Ml Udc) 40 meq PO X1 ONE Stop: 11/22/24 18:28 Last Admin: 11/22/24 19:25 Dose: 40 meq Assessment & Plan Plan 54-year-old female with past medical history of insulin-dependent type 2 diabetes on Ozempic, recurrent pyelonephritis, cholecystectomy status post stent placement presenting to the ED on 11/22 with fever and lower back pain will be admitted for sepsis secondary to pyelonephritis and possibly superimposed bibasilar pneumonia and will be treated with IV antibiotics. Sepsis due to pyelonephritis with acute sepsis-related organ dysfunction as evidence by febrile, tachycardic, elevated white count and elevated T. bili. #Sepsis #Pyelonephritis #Nonobstructing right renal calculi As stated above, patient is presenting with 1 day of fever and chills associated with flank pain radiating to his abdomen Patient denies having any dysuria, hematuria but does state that she been having fever/chills In the ED, patient presented with fever, tachycardia and elevated T. bili On exam, patient is diaphoretic does not have CVA tenderness but appears ill Urinalysis shows signs of bacterial infection CT abdomen chest pelvis showed bibasilar pneumonia, primary hepatocellular disease, biliary stent in satisfactory position, nonobstructing right renal calculi and minimal right perinephric stranding In the ED, patient given antibiotics and sepsis fluid bolus Plan: Will continue IV ceftriaxone Blood and urine cultures ordered #Pneumonia? #History of asthma? Patient does state that she feels shortness of breath on or off, seems like she has possible asthma on home inhalers Pending official med rec to restart inhalers On exam, lungs sound clear to auscultation bilaterally without wheeze/rales/rhonchi Chest x-ray showed basilar bronchitis pattern CT does mention bibasilar pneumonia In the ED patient given IV azithromycin Plan: IV antibiotics as above alongside IV azithromycin Cocci serologies Consider breathing treatments if necessary #Dws-ybdivdx-uqzmqavuc type 2 diabetes Last A1c of 6.3 Patient is currently on Ozempic, denies taking Jardiance or any other SGLT2 Plan: Sliding scale insulin Carb consistent diet #MASLD #Biliary stent, status post cholecystectomy Imaging findings, not pertinent to the following presentation Plan: Monitor for any acute changes Health Maintenance: Lines: PIV Diet: Carb consistent Bowel: Senna as needed GI prophylaxis: Not needed DVT prophylaxis: Heparin subcu Dispo: IV antibiotics for pyelonephritis and superimposed pneumonia Code: Full Patient seen and examined with attending Dr. Sandee Everett, DO PGY-2 Internal Medicine - [facility] Attending Provider Attestation/Addendum I have examined the patient, reviewed labs and imaging findings, discussed the case with the resident(s), and reviewed entered orders. I agree with the plan of care as outlined in this note, with these additional summaries/recommendations: After examination of the patient and review of the clinical data, I feel that this patient needs admission to the hospital for further treatment and evaluation. Patient is a 54-year-old female with a medical history of COPD, pancreatitis, biliary obstruction status post stent, obesity, and GERD who presents to [facility] emergency department on 11/22/2024 with chief complaints of fever, headache, flank pain, cough, and poor appetite. Patient and seen at bedside. Patient diagnosed with sepsis. 3 out of 4 SIRS criteria positive with body temp greater than 38 ?C, heart rate greater than 90, and WBC greater than 12. qSOFA 0 points indicating low risk for in- hospital mortality. Patient presented with nonspecific symptoms including productive cough, fever/chills, and flank pain. Hematology panel notable for WBC 15.0 with left shift and negative procalcitonin. Lactic acid within normal limits. Evidence of endorgan damage with hyperbilirubinemia. Most likely sources include pyelonephritis versus bacteremia versus bacterial pneumonia versus all of the above. Urinalysis indicative of infection and imaging revealed bibasilar pneumonia. Patient received 30 cc/kg in the ED. Start IV antibiotics and follow-up culture results when available. No need for pressors or source control at this time. Patient is status post biliary stent on 09/17/2024 with in-house gastroenterology. She does endorse mild abdominal pain but states this is chronic and no worse than usual. AST/ALT/ALP all within normal limits. If abdominal pain worsens or significant increase in liver function tests then recommend gastroenterology consultation although gall bladder ultrasound on admission showed normal common bile duct. Minimal hypokalemia present and replacement given. Breathing treatments as needed for history of COPD/asthma. Patient also reported falling down days prior and hitting her head and thus CT head was obtained in the emergency room which was negative for acute hemorrhage, mass effect or midline shift. Patient appears at her normal mental status and is answering questions appropriately. Patient and updated on the plan and in agreement. All questions answered satisfaction. Please see residents note for additional details and management. Dr. Sandee MD
[2024-11-22] MEDS: ONDANSETRON INJ 2 MG/ML INJ 2 ML 4 MG IVP (23:23)
[2024-11-23] VITALS (20 sets, daily range): BP systolic 90–161; BP diastolic 47–104; PULSE 99–140; RESP 18–28; TEMP 36.6–39.5; O2SAT 92–99
--- NOTE | 2024-11-23 00:30 | PC.NURSE ---
COUNTY AGRICULTURAL AGENT called to patient's room. patient complained of chest pain, HR 130s sustaining. MD ordered an EKG, lactic, troponin, and fluids.
--- NOTE | 2024-11-23 00:31 | EKG_ITS ---
[facility] Test Date: 2024-11-23 Pat Name: ALESSIA GUARDADO [facility] Certification Officer: [place] : 1970 Requested By: Abdirahman Ralph Order Number: [id number] Reading MD: Abdirahman Ralph Measurements Intervals [place] Rate: 130 P: 57 MO: 132 QRS: 24 QRSD: 81 T: 14 QT: 315 QTc: 464 Interpretive Statements SINUS TACHYCARDIA NONSPECIFIC ST & T-WAVE ABNORMALITY ABNORMAL RHYTHM ECG Compared to ECG 11/22/2024 17:13:28 No significant changes /store/S0/[id number].pdf
--- NOTE | 2024-11-23 00:40 | PD.RESEVENT ---
Documentation for date of: 11/23/24 Event Note Event Note: 11/23/2024: Rapid response called sometime around 12:20 AM for newly admitted patient 54-year-old female. Rapid response called for chest pain and tachycardia; ever, patient seen and assessed in hospital beds with patent airway/breathing and circulation. Patient states that she has substernal chest pain, sharp in nature and worsens with deep inspiration. Ordered EKG which showed sinus tachycardia without any concerning ST changes; moreover, ordered troponin, lactic acid and maintenance fluids IV NS 75 cc an hour for 1 bag of 500 mL. Suspicion is that likely sinus tachycardia secondary to patient having pneumonia versus bronchitis pattern on chest imaging. Will continue monitoring for any acute changes. Armando Everett, DO PGY-2 Internal Medicine - [facility]
[2024-11-23] MEDS: SODIUM CHLORIDE 0.9% 500 ML 500 ML 75 ML IV (00:42)
[2024-11-23] MEDS: ACETAMINOPHEN 325 MG TABLET 650 MG PO ×4 (00:54→19:42)
[2024-11-23 01:05] LABS: Lactate (Lactic Acid) 2.1 mMol/L (0.4-2.0)
[2024-11-23 01:46] LABS: Troponin I < 0.020 ng/mL (0.0-0.045)
[2024-11-23 04:00] LABS: Reflex Lactate? Y
[2024-11-23 06:12] LABS: Lactate (Lactic Acid) 2.4 mMol/L (0.4-2.0)
[2024-11-23 06:31] LABS: Basophils # (Auto) 0.1 Thou/mm3 (0.0-0.2); Basophils % (Auto) 1 % (0-2.5); Eosinophils # (Auto) 0.0 Thou/mm3 (0.0-0.5); Eosinophils % (Auto) 0 % (0-10); Hematocrit 35.1 % (36.0-46.0); Hemoglobin 11.1 g/dL (12.0-16.0); Immature Granulocytes Auto 0.33 Thou/mm3 (0.00-0.00); Lymphocytes # (Auto) 1.1 Thou/mm3 (1.0-4.8); Lymphocytes % (Auto) 6 % (10-50); Mean Corpuscular HGB Conc 31.6 g/dl (31.0-37.0); Mean Corpuscular Hemoglobin 30.0 pg (25.0-35.0); Mean Corpuscular Volume 95 fL (80-100); Monocytes # (Auto) 1.0 Thou/mm3 (0.0-0.8); Monocytes % (Auto) 5 % (0-12); Neutrophils # (Auto) 17.0 Thou/mm3 (1.8-7.7); Neutrophils % (Auto) 87 % (37-80); Nucleated Red Blood Cell # 0.00 Thou/mm3 (0.00-0.00); Nucleated Red Blood Cell % 0 /100 WBC (0); Platelet Count 199 Thou/mm3 (140-440); RDW Standard Deviation 47.6 fL (36.4-46.3); Red Blood Count 3.70 Miln/mm3 (4.00-5.20); White Blood Count 19.5 Thou/mm3 (3.6-11.0)
[2024-11-23 07:07] LABS: Alanine Aminotransferase 16 U/L (10-49); Albumin, Serum 3.2 gm/dL (3.5-5.0); Albumin/Globulin Ratio 1.1 (1.2-2.2); Alkaline Phosphatase 77 U/L (46-116); Anion Gap 14 (7-16); Aspartate Amino Transferase 18 U/L (0-34); BUN/Creatinine Ratio 6 Ratio (12-20); Bilirubin,Total 1.2 mg/dL (0.3-1.2); Blood Urea Nitrogen 6 mg/dL (9-23); Calcium 7.7 mg/dL (8.3-10.6); Calcium (Corrected) 8.3 mg/dL (8.5-10.1); Carbon Dioxide 20.3 mMol/L (20.0-31.0); Chloride 111 mMol/L (98-107); Creatinine (Component) 1.0 mg/dL (0.6-1.3); Estimated Creatinine Clearance 74.4 mL/min (>60); Globulin 2.9 gm/dL (2.3-3.5); Glucose 157 mg/dL (74-106); Magnesium 1.4 mg/dL (1.6-2.6); Osmolality,Calculated 289 (275-295); Phosphorous 1.6 mg/dL (2.4-5.1); Potassium 2.8 mMol/L (3.4-5.1); Sodium 145 mMol/L (136-145); Total Protein 6.1 gm/dL (5.7-8.2); eGFR > 60 See Note
--- NOTE | 2024-11-23 07:26 | PC.NURSE ---
Dr. Orantes notified via telephone of pts complains of not feeling well shivering and feeling nauseated. Per MD will come to see the pt in about 5 mins.
--- NOTE | 2024-11-23 07:31 | PC.NURSE ---
FACILITY TECHNICIAN called due to pts complains of SOB per pt feels like shes having a asthma attack, shivering, vomiting and tachycardia. Pt in bed on 2L oxygen sating 94%, aoox4.
--- NOTE | 2024-11-23 07:31 | CHAP ---
Responded to Rapid Response (07:31). All was good, no family present, no need for tanner rotary drum continuous process.
--- NOTE | 2024-11-23 07:35 | EKG_ITS ---
[facility] Test Date: 2024-11-23 Pat Name: ALESSIA GUARDADO [facility] It Senior Software Engineer Java: KELY : 1970 Requested By: Cindy Goodman Order Number: [id number] Reading MD: Cindy Goodman Measurements Intervals [place] Rate: 126 P: 67 [place]: 130 QRS: -12 QRSD: 78 T: 3 QT: 309 QTc: 449 Interpretive Statements SINUS TACHYCARDIA NONSPECIFIC ST & T-WAVE ABNORMALITY ABNORMAL RHYTHM ECG Compared to ECG 11/23/2024 00:30:21 No significant changes /store/S0/[id number].pdf
[2024-11-23] MEDS: MORPHINE SULF INJ 10 MG/ML VIAL IVP (07:42)
[2024-11-23] MEDS: ONDANSETRON INJ 2 MG/ML INJ 2 ML 4 MG IVP (07:43)
--- NOTE | 2024-11-23 07:44 | PD.RESEVENT ---
Documentation for date of: 11/23/24 Event Note Event Note: Rapid response at AM 7:30 for shortness of breath. Patient had heart rate of 130s. Intervention: Morphine 1mg IV, Ipratiopium 0.5mg, levalbuterol 0.63mg, magnesium, potassium p.o. and Meropenem started. Repeat lactic acid, troponin, CMP, and EKG. Continue to monitor. Patient's plan was discussed with attending Dr. Orantes and Dr. Goodman (PGY-2). - The patient's plan was discussed with attending Dr. Cindy Goodman MD PGY2 Internal Medicine
[2024-11-23] MEDS: Magnesium Sulfate 2 GM Ivpb 2 GM/50 ML BAG IV (08:00)
[2024-11-23] MEDS: NAPH,KPH MBDB 1 PACKET (1.5 GM) PO ×2 (08:01→17:23)
[2024-11-23] MEDS: POTASSIUM CHL 10 mEq IVPB 10 MEQ/100 ML BAG 100 MEQ IV ×4 (08:01→11:22)
[2024-11-23] MEDS: LEVALBUTEROL RT 0.63 MG/3 ML NEBU INH ×3 (08:06→18:41)
[2024-11-23 08:12] LABS: Lactate (Lactic Acid) 3.4 mMol/L (0.4-2.0)
[2024-11-23 08:34] LABS: Alanine Aminotransferase 19 U/L (10-49); Albumin, Serum 3.7 gm/dL (3.5-5.0); Albumin/Globulin Ratio 1.2 (1.2-2.2); Alkaline Phosphatase 84 U/L (46-116); Anion Gap 12 (7-16); Aspartate Amino Transferase 20 U/L (0-34); BUN/Creatinine Ratio 8 Ratio (12-20); Bilirubin,Total 1.3 mg/dL (0.3-1.2); Blood Urea Nitrogen 8 mg/dL (9-23); Calcium 8.4 mg/dL (8.3-10.6); Calcium (Corrected) 8.6 mg/dL (8.5-10.1); Carbon Dioxide 20.2 mMol/L (20.0-31.0); Chloride 112 mMol/L (98-107); Creatinine (Component) 1.0 mg/dL (0.6-1.3); Estimated Creatinine Clearance 74.4 mL/min (>60); Globulin 3.2 gm/dL (2.3-3.5); Glucose 164 mg/dL (74-106); Osmolality,Calculated 289 (275-295); Potassium 3.3 mMol/L (3.4-5.1); Sodium 144 mMol/L (136-145); Total Protein 6.9 gm/dL (5.7-8.2); Troponin I < 0.002 ng/mL (0.0-0.045); eGFR > 60 See Note
[2024-11-23] MEDS: HEPARIN SOD INJ 5000 UNIT/ML VIAL SC ×2 (08:55→20:51)
[2024-11-23] MEDS: cefTRIAXone/D5w 1gm IV premix 1 GM/50 ML BAG IV (08:56)
[2024-11-23] MEDS: AZITHROMYCIN INJ 250 MG in SODIUM CHLORIDE 0.9% 250 ML 250 ML IV (08:56)
[2024-11-23 09:07] LABS: Reflex Lactate? Y
--- NOTE | 2024-11-23 09:48 | ESPR_ITS ---
<Statement entered by Aurelio Orantes MD - 11/28/24 11:44> I reviewed above note and agree with findings and plans. I have also personally examined the patient with medicine team and went over assessment and plan with medical team including recruiting internship and resident physician. Documentation for date of: 11/23/24 Subjective Subjective Interval history: Patient examined at bedside. Patient continues complain from pain, chills, and shortness of breath. Lab response called to for patient given sinus tachycardia, patient was switched from albuterol to levalbuterol. Second rapid response, sepsis alert called, repeat ABG, and lactic acid. Repeat blood cultures. Meropenem added given concern for possible resistance antibiotic. Pending 2 sets of blood cultures and NS at a rate of 80 cc/h. Repeat A1c as patient has a past medical history of diabetes, repeat A1c 11/23/2024 showed 6.2%. Continue to trend lactic acid, may give small bolus, with caution given concern for pneumonia. Patient was seen and examined at bedside. A.m. vitals and labs reviewed. At the time of examination patient had diffuse lower abdominal pain. Urinary urgency with no leakage. At the time of examination, patient denied lower back pain, shortness of breath,chest pain, fever, chills, headache. Patient had 3 rapid event called. 1. 12:20AM: sharp substernal Chest pain worsening with deep inspiration, and sinus tachycardia without any concering ST changes. ordered troponin, lactic acid and maintenance fluids IV NS 75 cc an hour for 1 bag of 500 mL. Suspicion is that likely sinus tachycardia secondary to patient having pneumonia versus bronchitis pattern on chest imaging. 2. 7;30AM: Shortness of breath and Tachycardia in 130s. Morphine 1mg IV, Ipratiopium 0.5mg, levoalbutrol 0.63mg, magnesium, potassium p.o. and meropenem was given. 3. 1:50PM: Tachycardia (148bpm) and fever (103F) and shivering. Tylenol IV given. Sepsis workup including: CBC, CMP, repeat Lactic acid, Chest XR and Blood culture. Exam Vital Signs Temp Pulse Resp BP Pulse Ox O2 Del Method O2 Flow Rate 99.5 F 130 H 20 120/66 93 L Nasal Cannula 1 11/23/24 08:00 11/23/24 08:04 11/23/24 08:04 11/23/24 08:00 11/23/24 08:04 11/23/24 08:00 11/23/24 08:04 Narrative Exam GENERAL: AAOx3. Normal mood and affect, cooperative HEENT: Normocephalic, atraumatic.? Pupils are equal and reactive.? Oral mucosa is moist. Patent Nares NECK: Supple, nontender, no thyromegaly, no meningismus, no JVD CHEST: Symmetrical, atraumatic, and with equal expansion , Nontender on palpation no deformity and no crepitus. CARDIOVASCULAR: Heart regular rhythm no murmur or gallop rub or extra beats. LUNGS: Clear to auscultation bilaterally with symmetrical chest rise.? No laboring tachypnea or wheezing.? ABDOMEN: Soft, flat, nontender to palpation, no guarding or rebound tenderness.? There are no abnormal masses palpated.? Active and normal bowel sounds. EXTREMITIES: Nontender.? No edema.? No cyanosis. SKIN: Warm and dry, no jaundice or rashes noted. MUSCULOSKELETAL: No lumbar or midline bony tenderness.? No paraspinal muscle spasm or tenderness. NEURO: Cranial nerves II through XII grossly intact.? There is no focal neurologic deficits noted.? Objective Labs 11/23/24 13:46 11/23/24 16:48 Labs: Laboratory Results - last 24 hr 11/22/24 11/22/24 11/22/24 17:20 18:25 19:14 WBC 15.0 H RBC 4.30 Hgb 12.9 Hct 39.3 MCV 91 MCH 30.0 MCHC 32.8 RDW Std Deviation 45.2 Plt Count 230 Neut % (Auto) 84 H Lymph % (Auto) 8 L [place] % (Auto) 7 Eos % (Auto) 0 Baso % (Auto) 0 Neut # (Auto) 12.6 H Lymph # (Auto) 1.3 [place] # (Auto) 1.1 H Eos # (Auto) 0.0 Baso # (Auto) 0.1 Immature Gran # (Auto) 0.08 H Absolute Nucleated RBC 0.00 Immature Gran % 1 H Nucleated RBC % 0 ESR 43 H Sodium 139 Potassium 3.0 L Chloride 105 Carbon Dioxide 20.7 Anion Gap 13 BUN < 5 L Creatinine 0.9 Estim Creat Clear Calc Not Performed. eGFR > 60 BUN/Creatinine Ratio 6 L Glucose 178 H Calculated Osmolality 278 Lactic Acid 1.9 Calcium 8.7 Corrected Calcium 8.7 Phosphorus Magnesium 1.7 Total Bilirubin 1.4 H Direct Bilirubin 0.4 H AST 18 ALT 18 Alkaline Phosphatase 95 Troponin I C-Reactive Prot, Quant 6.8 H Total Protein 7.6 Albumin 4.0 Globulin 3.6 H Albumin/Globulin Ratio 1.1 L Lipase 29 Procalcitonin 0.37 Ur Collection Type Voided Urine Color Lt-Yellow Urine Clarity Clear Urine pH 6.5 Ur Specific [place] 1.008 Urine Protein Negative Urine Glucose (UA) Negative Urine Ketones 1+ A Urine Blood Trace Urine Nitrite Positive Urine Bilirubin Negative Urine Urobilinogen (Auto) Negative Ur Leukocyte Esterase Positive Urine RBC 2 Urine WBC 17 H Ur Squamous Epith Cells 1 Urine Bacteria 1+ A Ur Culture Indicated? Yes Urine HCG, Qual Negative RSV Rapid Negative Group A Strep Rapid Negative 11/23/24 11/23/24 11/23/24 00:42 05:50 07:50 WBC 19.5 H RBC 3.70 L Hgb 11.1 L Hct 35.1 L MCV 95 MCH 30.0 MCHC 31.6 RDW Std Deviation 47.6 H Plt Count 199 D Neut % (Auto) 87 H Lymph % (Auto) 6 L [place] % (Auto) 5 Eos % (Auto) 0 Baso % (Auto) 1 Neut # (Auto) 17.0 H Lymph # (Auto) 1.1 [place] # (Auto) 1.0 H Eos # (Auto) 0.0 Baso # (Auto) 0.1 Immature Gran # (Auto) 0.33 H Absolute Nucleated RBC 0.00 Immature Gran % 2 H Nucleated RBC % 0 ESR Sodium 145 144 Potassium 2.8 L 3.3 L D Chloride 111 H 112 H Carbon Dioxide 20.3 20.2 Anion Gap 14 12 BUN 6 L 8 L Creatinine 1.0 1.0 Estim Creat Clear Calc 74.4 74.4 eGFR > 60 > 60 BUN/Creatinine Ratio 6 L 8 L Glucose 157 H 164 H Calculated Osmolality 289 289 Lactic Acid 2.1 H 2.4 H 3.4 H Calcium 7.7 L 8.4 Corrected Calcium 8.3 L 8.6 Phosphorus 1.6 L Magnesium 1.4 L Total Bilirubin 1.2 1.3 H Direct Bilirubin AST 18 20 ALT 16 19 Alkaline Phosphatase 77 84 Troponin I < 0.020 < 0.002 C-Reactive Prot, Quant Total Protein 6.1 6.9 Albumin 3.2 L D 3.7 D Globulin 2.9 3.2 Albumin/Globulin Ratio 1.1 L 1.2 Lipase Procalcitonin Ur Collection Type Urine Color Urine Clarity Urine pH Ur Specific [place] Urine Protein Urine Glucose (UA) Urine Ketones Urine Blood Urine Nitrite Urine Bilirubin Urine Urobilinogen (Auto) Ur Leukocyte Esterase Urine RBC Urine WBC Ur Squamous Epith Cells Urine Bacteria Ur Culture Indicated? Urine HCG, Qual RSV Rapid Group A Strep Rapid Quality Measures Quality Measures sepsis Current suspected stage: sepsis Possible source: unknown (source unknown during sign out. ) Blood cultures ordered: completed in ED Antibiotic ordered: Yes Assessment & Plan Assessment Current Active Medications: Generic Name Dose Route Start Last Admin Trade Name Freq PRN Reason Stop Dose Admin Acetaminophen 650 mg 11/22/24 21:07 11/23/24 07:44 Acetaminophen 325 Mg Tablet PO 12/22/24 21:06 650 mg Q6H PRN Administration Pain 1-3 and/or Fever >100.1 Dextrose 25 ml 11/22/24 21:10 Dextrose 50%-Water Inj 50 Ml Syringe IV 12/22/24 21:09 Q15MIN PRN BG 50-70 responsive npo pt Dextrose 50 ml 11/22/24 21:10 Dextrose 50%-Water Inj 50 Ml Syringe IV 12/22/24 21:09 Q15MIN PRN BG <50 OR BG <70 & pt unresponsive Glucagon 1 mg 11/22/24 21:10 Glucagon Inj 1 Mg Vial IM Q15MIN PRN BG <70, and no IV access Heparin Sodium (Porcine) 5,000 unit 11/23/24 09:00 11/23/24 08:55 Heparin Sod Inj 5000 Unit/Ml Vial SC 12/07/24 08:59 5,000 unit Q12HR LUIS A Administration Ceftriaxone Sodium/Dextrose 1 gm in 50 mls @ 100 mls/hr 11/23/24 09:00 11/23/24 08:56 Rocephin/D5w 1gm Iv Premix IV 11/30/24 08:59 100 mls/hr QDAY LUIS A Administration Azithromycin 250 mg/ Sodium 250 mls @ 250 mls/hr 11/23/24 09:00 11/23/24 08:56 Chloride IV 11/27/24 08:59 250 mls/hr QDAY LUIS A Administration Potassium Chloride 10 meq in 100 mls @ 100 mls/hr 11/23/24 07:38 11/23/24 09:01 Kcl Ivpb IV 11/23/24 11:37 100 mls/hr Q1H LUIS A Administration Sodium Chloride 500 mls @ 999 mls/hr 11/23/24 09:23 Ns IV 11/23/24 09:53 .Q31M ONE Insulin Human Lispro 0 unit 11/23/24 07:30 11/23/24 08:14 Insulin Lispro (Admelog) 1 Unit/0.01 Ml Unit SC 12/23/24 07:29 Not Given ACHS LUIS A Protocol Ipratropium [place] 0.5 mg 11/23/24 12:00 Ipratropium Rt 0.5 Mg/ 2.5 Ml Nebu INH 12/23/24 11:59 Q6HR LUIS A Levalbuterol HCl 0.63 mg 11/23/24 12:00 Levalbuterol Rt 0.63 Mg/3 Ml Nebu INH 12/23/24 11:59 Q6HR LUIS A Ondansetron HCl 4 mg 11/22/24 21:07 11/23/24 07:43 Ondansetron Inj 2 Mg/Ml Inj 2 Ml IVP 12/22/24 21:06 4 mg Q6H PRN Administration NAUSEA OR VOMITING Protocol Sennosides 1 tab 11/22/24 21:07 Senna Tablet PO 12/22/24 21:06 QDAY PRN constipation Protocol Plan 54-year-old female with past medical history of insulin-dependent type 2 diabetes on Ozempic, recurrent pyelonephritis, cholecystectomy status post stent placement presenting to the ED on 11/22 with fever and lower back pain will be admitted for sepsis secondary to pyelonephritis and possibly superimposed bibasilar pneumonia and will be treated with IV antibiotics. Sepsis due to pyelonephritis with acute sepsis-related organ dysfunction as evidence by febrile, tachycardic, elevated white count and elevated T. bili. #Sepsis, secondary to pyelonephritis #Pyelonephritis #Non-obstructing right renal calculi -As stated above, patient is presenting with 1 day of fever and chills associated with flank pain radiating to his abdomen Patient denies having any dysuria, hematuria but does state that she been having fever/chills. Patient complain of naseua with CT images noted with right perinephric stranding. Diagnostics: -CT abdomen chest pelvis showed bibasilar pneumonia, primary hepatocellular disease, biliary stent in satisfactory position, nonobstructing right renal calculi and minimal right perinephric stranding Blood Culture (11/23/2024): Pending Blood Culture (11/22/2024): Negative 24 Hours Urine Culture (11/22/2024): Now growth 24 hours Plan: -Started Meropenem (11/23/2024--), escalated given concern for possible ESBL -Discontinue IV ceftriaxone (11/22/2024--) -Started Tamsulosin 0.4 mg PO qd -IVF NS at a rate of 100c/hr -Blood and urine cultures pending - Follow up on lactic acid level. #Acute hypoxic respiratory failure, secondary to asthma exacerbation #Asthma exacerbation Patient presented with worsening shortness of breath within 1 week sick contact with decreased airway entry bilaterally. Decreased airway bilaterally. Diagnostics: -Chest x-ray showed basilar bronchitis pattern -CT does mention bibasilar pneumonia -In the ED patient given IV azithromycin QSOFA 1 Plan: -IV azithromycin (11/22/2024--) & dual coverage with Meropenum (11/23/2024--) -Levalbuterol & Ipratropium -Rpepeat blood cultrues -Cocci serologies #[id number] type 2 diabetes Last A1c of 6.3 Patient is currently on Ozempic, denies taking Jardiance or any other SGLT2 Plan: Sliding scale insulin Carb consistent diet #MASLD #Biliary stent, status post cholecystectomy Imaging findings, not pertinent to the following presentation Plan: Monitor for any acute changes Health Maintenance: Lines: PIV Diet: Carb consistent Bowel: Senna as needed GI prophylaxis: Not needed DVT prophylaxis: Heparin subcu Dispo: IV antibiotics for pyelonephritis and superimposed pneumonia Code: Full Assessment and plan discussed with my attending physician Dr. Orantes and Dr. Goodman (PGY-2) Dr. Bell (PGY-1)- Internal medicine resident - The patient's plan was discussed with attending Dr. Rolanda Goodman MD PGY2 Internal Medicine
[2024-11-23] MEDS: SODIUM CHLORIDE 0.9% 500 ML 500 ML 999 ML IV ×2 (10:08→17:15)
[2024-11-23 11:10] LABS: Reflex Lactate? Y
[2024-11-23 11:15] LABS: Lactic Acid, 3 HR 2.2 mMol/L (0.4-2.0)
[2024-11-23] MEDS: INSULIN LISPRO (AdmeLOG) 1 UNIT/0.01 ML UNIT SC ×3 (11:50→20:51)
[2024-11-23] MEDS: IPRATROPIUM RT 0.5 MG/ 2.5 ML NEBU INH ×2 (13:07→18:41)
[2024-11-23 13:44] LABS: Cocci Serology, IgM Negative (Negative)
[2024-11-23] MEDS: MEROPENEM INJ 1,000 MG in SODIUM CHLORIDE 0.9% (Popper) 50 ML 100 MG IV ×2 (13:46→20:59)
--- NOTE | 2024-11-23 13:48 | PC.NURSE ---
INDUSTRIAL MACHINE ASSEMBLER called at 1348 d/t pt current HR sustaining in the 140's, temp at 102.7, Resp 24 and shivering in bed. sepsis alert called @1352. Pt denies CP at this time.
--- NOTE | 2024-11-23 13:51 | EKG_ITS ---
[facility] Test Date: 2024-11-23 Pat Name: ALESSIA GUARDADO [facility] Gender[facility] Female [employer] Design Architect: RT STUDENT : 1970 Requested By: Sharron Pan Order Number: [id number] Reading MD: Sharron Pan Measurements Intervals [place] Rate: 126 P: 53 MN: 127 QRS: 6 QRSD: 81 T: 41 QT: 304 QTc: 441 Interpretive Statements SINUS TACHYCARDIA MINIMAL VOLTAGE CRITERIA FOR LVH, CONSIDER NORMAL VARIANT NONSPECIFIC T-WAVE ABNORMALITY ABNORMAL RHYTHM ECG Compared to ECG 11/23/2024 07:43:06 No significant changes /store/S0/[id number]/ecg/[id number].pdf
--- NOTE | 2024-11-23 13:51 | XR_ITS ---
Examination: AP chest single view Technique one AP portable upright chest single view Date and time: November 23, 2024, 1410 hours INDICATIONS: Sepsis protocol FINDINGS: Bibasilar pneumonia, significant Mild prominence left ventricle Mild vascular congestion IMPRESSION: Bibasilar pneumonia
[2024-11-23 13:54] LABS: Glucose Estimated Average 131 mg/dL (80-131); Hemoglobin A1C 6.2 % Hgb (4.8-6.0)
[2024-11-23] MEDS: SODIUM CHLORIDE 0.9% 1000 ML 1,000 ML 80 ML IV (13:56)
[2024-11-23 14:02] LABS: Lactic Acid, 3 HR 3.1 mMol/L (0.4-2.0)
[2024-11-23 14:05] LABS: Basophils # (Auto) 0.1 Thou/mm3 (0.0-0.2); Basophils % (Auto) 0 % (0-2.5); Eosinophils # (Auto) 0.0 Thou/mm3 (0.0-0.5); Eosinophils % (Auto) 0 % (0-10); Hematocrit 35.1 % (36.0-46.0); Hemoglobin 11.6 g/dL (12.0-16.0); Immature Granulocytes Auto 0.30 Thou/mm3 (0.00-0.00); Lymphocytes # (Auto) 1.5 Thou/mm3 (1.0-4.8); Lymphocytes % (Auto) 9 % (10-50); Mean Corpuscular HGB Conc 33.0 g/dl (31.0-37.0); Mean Corpuscular Hemoglobin 30.7 pg (25.0-35.0); Mean Corpuscular Volume 93 fL (80-100); Monocytes # (Auto) 0.6 Thou/mm3 (0.0-0.8); Monocytes % (Auto) 3 % (0-12); Neutrophils # (Auto) 15.3 Thou/mm3 (1.8-7.7); Neutrophils % (Auto) 86 % (37-80); Nucleated Red Blood Cell # 0.00 Thou/mm3 (0.00-0.00); Nucleated Red Blood Cell % 0 /100 WBC (0); Platelet Count 185 Thou/mm3 (140-440); RDW Standard Deviation 47.9 fL (36.4-46.3); Red Blood Count 3.78 Miln/mm3 (4.00-5.20); White Blood Count 17.8 Thou/mm3 (3.6-11.0)
[2024-11-23] MEDS: ACETAMINOPHEN IVPB 1,000 MG/100 ML VIAL 250 MG IV (14:10)
[2024-11-23 14:21] LABS: INR 1.4 (0.9-1.3); Partial Thromboplastin Time 32.7 Seconds (22.0-36.0); Prothrombin Time 15.1 Seconds (9.0-12.2)
[2024-11-23 14:31] LABS: Alanine Aminotransferase 20 U/L (10-49); Albumin, Serum 3.4 gm/dL (3.5-5.0); Albumin/Globulin Ratio 1.1 (1.2-2.2); Alkaline Phosphatase 77 U/L (46-116); Anion Gap 12 (7-16); Aspartate Amino Transferase 20 U/L (0-34); BUN/Creatinine Ratio 7 Ratio (12-20); Bilirubin,Total 0.9 mg/dL (0.3-1.2); Blood Urea Nitrogen 8 mg/dL (9-23); Calcium 7.9 mg/dL (8.3-10.6); Calcium (Corrected) 8.4 mg/dL (8.5-10.1); Carbon Dioxide 20.2 mMol/L (20.0-31.0); Chloride 110 mMol/L (98-107); Creatinine (Component) 1.1 mg/dL (0.6-1.3); Estimated Creatinine Clearance 67.6 mL/min (>60); Globulin 3.1 gm/dL (2.3-3.5); Glucose 193 mg/dL (74-106); Magnesium 1.8 mg/dL (1.6-2.6); Osmolality,Calculated 286 (275-295); Phosphorous 2.1 mg/dL (2.4-5.1); Potassium 3.9 mMol/L (3.4-5.1); Procalcitonin 4.57 ng/ml (0.0-0.49); Sodium 142 mMol/L (136-145); Total Protein 6.5 gm/dL (5.7-8.2); eGFR 60 See Note
[2024-11-23 17:02] LABS: Lactate (Lactic Acid) 1.7 mMol/L (0.4-2.0)
[2024-11-23] MEDS: TAMSULOSIN HCL 0.4 MG CAPSULE PO (17:15)
[2024-11-23 17:32] LABS: Anion Gap 10 (7-16); BUN/Creatinine Ratio 9 Ratio (12-20); Blood Urea Nitrogen 8 mg/dL (9-23); Calcium 7.3 mg/dL (8.3-10.6); Carbon Dioxide 19.7 mMol/L (20.0-31.0); Chloride 113 mMol/L (98-107); Creatinine (Component) 0.9 mg/dL (0.6-1.3); Estimated Creatinine Clearance 82.7 mL/min (>60); Glucose 176 mg/dL (74-106); Osmolality,Calculated 287 (275-295); Potassium 3.7 mMol/L (3.4-5.1); Sodium 143 mMol/L (136-145); eGFR > 60 See Note
--- NOTE | 2024-11-23 19:38 | PD.RESEVENT ---
Documentation for date of: 11/23/24 Event Note Event Note: Rapid response at PM1:50 for tachycardia (148bpm) and fever (103F). Patient was shivering at the time. Intervention: Tylenol IV given. Sepsis workup including: CBC, CMP, repeat Lactic acid, Chest XR and Blood culture. Assessment and plan discussed with my attending physician Dr. Orantse and Dr. Rex Bell (PGY-1)- Internal medicine resident - The patient's plan was discussed with attending Dr. Rolanda Goodman MD PGY2 Internal Medicine
[2024-11-23 20:29] LABS: Lactate (Lactic Acid) 2.4 mMol/L (0.4-2.0)
[2024-11-23 22:56] LABS: Lactate (Lactic Acid) 1.2 mMol/L (0.4-2.0)
[2024-11-23 23:03] LABS: Reflex Lactate? Y
[2024-11-24] VITALS (16 sets, daily range): BP systolic 113–146; BP diastolic 73–86; PULSE 12–115; RESP 16–20; TEMP 37.1–38.6; O2SAT 92–99
[2024-11-24] MEDS: ONDANSETRON INJ 2 MG/ML INJ 2 ML 4 MG IVP (01:04)
[2024-11-24] MEDS: SODIUM CHLORIDE 0.9% 1000 ML 1,000 ML 80 ML IV (01:07)
[2024-11-24] MEDS: IPRATROPIUM RT 0.5 MG/ 2.5 ML NEBU INH ×4 (01:10→19:20)
[2024-11-24] MEDS: LEVALBUTEROL RT 0.63 MG/3 ML NEBU INH ×4 (01:10→19:20)
[2024-11-24] MEDS: ACETAMINOPHEN 325 MG TABLET 650 MG PO ×4 (01:35→21:07)
[2024-11-24 03:16] LABS: Basophils # (Auto) 0.1 Thou/mm3 (0.0-0.2); Basophils % (Auto) 0 % (0-2.5); Eosinophils # (Auto) 0.1 Thou/mm3 (0.0-0.5); Eosinophils % (Auto) 0 % (0-10); Hematocrit 31.8 % (36.0-46.0); Hemoglobin 10.3 g/dL (12.0-16.0); Immature Granulocytes Auto 0.35 Thou/mm3 (0.00-0.00); Lactate (Lactic Acid) 2.0 mMol/L (0.4-2.0); Lymphocytes # (Auto) 1.1 Thou/mm3 (1.0-4.8); Lymphocytes % (Auto) 8 % (10-50); Mean Corpuscular HGB Conc 32.4 g/dl (31.0-37.0); Mean Corpuscular Hemoglobin 30.0 pg (25.0-35.0); Mean Corpuscular Volume 93 fL (80-100); Monocytes # (Auto) 0.6 Thou/mm3 (0.0-0.8); Monocytes % (Auto) 4 % (0-12); Neutrophils # (Auto) 11.8 Thou/mm3 (1.8-7.7); Neutrophils % (Auto) 85 % (37-80); Nucleated Red Blood Cell # 0.00 Thou/mm3 (0.00-0.00); Nucleated Red Blood Cell % 0 /100 WBC (0); Platelet Count 146 Thou/mm3 (140-440); RDW Standard Deviation 48.0 fL (36.4-46.3); Red Blood Count 3.43 Miln/mm3 (4.00-5.20); White Blood Count 13.9 Thou/mm3 (3.6-11.0)
[2024-11-24 03:40] LABS: Alanine Aminotransferase 21 U/L (10-49); Albumin, Serum 3.2 gm/dL (3.5-5.0); Albumin/Globulin Ratio 1.1 (1.2-2.2); Alkaline Phosphatase 79 U/L (46-116); Anion Gap 9 (7-16); Aspartate Amino Transferase 17 U/L (0-34); BUN/Creatinine Ratio 10 Ratio (12-20); Bilirubin,Total 0.7 mg/dL (0.3-1.2); Blood Urea Nitrogen 8 mg/dL (9-23); Calcium 7.8 mg/dL (8.3-10.6); Calcium (Corrected) 8.4 mg/dL (8.5-10.1); Carbon Dioxide 20.7 mMol/L (20.0-31.0); Chloride 113 mMol/L (98-107); Creatinine (Component) 0.8 mg/dL (0.6-1.3); Estimated Creatinine Clearance 93.0 mL/min (>60); Globulin 2.8 gm/dL (2.3-3.5); Glucose 140 mg/dL (74-106); Magnesium 1.6 mg/dL (1.6-2.6); Osmolality,Calculated 285 (275-295); Phosphorous 2.1 mg/dL (2.4-5.1); Potassium 3.5 mMol/L (3.4-5.1); Sodium 143 mMol/L (136-145); Total Protein 6.0 gm/dL (5.7-8.2); eGFR > 60 See Note
[2024-11-24] MEDS: MEROPENEM INJ 1,000 MG in SODIUM CHLORIDE 0.9% (Popper) 50 ML 100 MG IV ×3 (05:34→21:03)
[2024-11-24 06:48] LABS: Lactate (Lactic Acid) 1.6 mMol/L (0.4-2.0)
[2024-11-24] MEDS: AZITHROMYCIN INJ 250 MG in SODIUM CHLORIDE 0.9% 250 ML 250 ML IV (08:37)
[2024-11-24] MEDS: TAMSULOSIN HCL 0.4 MG CAPSULE PO (08:37)
[2024-11-24] MEDS: HEPARIN SOD INJ 5000 UNIT/ML VIAL SC ×2 (08:37→21:04)
[2024-11-24 10:04] LABS: Lactate (Lactic Acid) 2.1 mMol/L (0.4-2.0)
[2024-11-24 10:28] LABS: Anion Gap 11 (7-16); BUN/Creatinine Ratio 9 Ratio (12-20); Blood Urea Nitrogen 7 mg/dL (9-23); Calcium 7.6 mg/dL (8.3-10.6); Carbon Dioxide 21.3 mMol/L (20.0-31.0); Chloride 111 mMol/L (98-107); Creatinine (Component) 0.8 mg/dL (0.6-1.3); Estimated Creatinine Clearance 93.0 mL/min (>60); Glucose 150 mg/dL (74-106); Osmolality,Calculated 285 (275-295); Potassium 3.2 mMol/L (3.4-5.1); Sodium 143 mMol/L (136-145); eGFR > 60 See Note
[2024-11-24] MEDS: VANCOMYCIN/D5W 1,250 MG IVPB 250 ML 120 MG IV (10:38)
[2024-11-24] MEDS: Magnesium Sulfate 2 GM Ivpb 2 GM/50 ML BAG IV (10:38)
--- NOTE | 2024-11-24 11:25 | ESPR_ITS ---
<Statement entered by Aurelio Orantes MD - 11/28/24 11:47> I reviewed above note and agree with findings and plans. I have also personally examined the patient with medicine team and went over assessment and plan with medical team including hospital intern and resident physician. Documentation for date of: 11/24/24 Patient continues to have pyrexia overnight. Vancomycin added on 11/24/2024 and continue meropenem antibiotics. Blood cultures pending negative after [address] Sung consulted given concern for pyelonephritis and continue pyrexia. Abdomen/Pelvic CT ordered, given urology recommendations. Concern for biliary stent, continue to monitor If MAP worsens give IV fluids, repeat lactic acid, cmp, and abg. Subjective Subjective Interval history: Patient was seen and examined at bedside. A.m. vitals and labs reviewed. At the time of examination patient had diffuse abdominal pain and shortness of breathe. Patient complains of fever. Denies chest pain, headaches, dizziness, or urinary urgency Exam Vital Signs Temp Pulse Resp BP Pulse Ox O2 Del Method O2 Flow Rate 100 F 112 H 18 126/80 95 Room Air 2 11/24/24 08:00 11/24/24 08:00 11/24/24 08:00 11/24/24 08:00 11/24/24 08:00 11/24/24 08:00 11/24/24 01:12 Narrative Exam GENERAL: AAOx3. Normal mood and affect, cooperative HEENT: Normocephalic, atraumatic.? Pupils are equal and reactive.? Oral mucosa is moist. Patent Nares NECK: Supple, nontender, no thyromegaly, no meningismus, no JVD CHEST: Symmetrical, atraumatic, and with equal expansion , Nontender on palpation no deformity and no crepitus. CARDIOVASCULAR: Heart regular rhythm no murmur or gallop rub or extra beats. LUNGS: Clear to auscultation bilaterally with symmetrical chest rise.? No laboring tachypnea or wheezing. ABDOMEN: Soft, flat, nontender to palpation, no guarding or rebound tenderness.? There are no abnormal masses palpated.? Active and normal bowel sounds. EXTREMITIES: Nontender.? No edema.? No cyanosis. SKIN: Warm and dry, no jaundice or rashes noted. MUSCULOSKELETAL: No lumbar or midline bony tenderness.? No paraspinal muscle spasm or tenderness. NEURO: Cranial nerves II through XII grossly intact.? There is no focal neurologic deficits noted. Objective Labs 11/24/24 02:40 11/24/24 09:42 Labs: Laboratory Results - last 24 hr 11/23/24 11/23/24 11/23/24 05:50 13:46 16:48 WBC 17.8 H RBC 3.78 L Hgb 11.6 L Hct 35.1 L MCV 93 MCH 30.7 MCHC 33.0 RDW Std Deviation 47.9 H Plt Count 185 Neut % (Auto) 86 H Lymph % (Auto) 9 L [place] % (Auto) 3 Eos % (Auto) 0 Baso % (Auto) 0 Neut # (Auto) 15.3 H Lymph # (Auto) 1.5 [place] # (Auto) 0.6 Eos # (Auto) 0.0 Baso # (Auto) 0.1 Immature Gran # (Auto) 0.30 H Absolute Nucleated RBC 0.00 Immature Gran % 2 H Nucleated RBC % 0 PT 15.1 H INR 1.4 H APTT 32.7 Sodium 142 143 Potassium 3.9 D 3.7 Chloride 110 H 113 H Carbon Dioxide 20.2 19.7 L Anion Gap 12 10 BUN 8 L 8 L Creatinine 1.1 0.9 Estim Creat Clear Calc 67.6 82.7 eGFR 60 > 60 BUN/Creatinine Ratio 7 L 9 L Glucose [address] Glu mg/dL 131 Hemoglobin A1c 6.2 H Calculated Osmolality 286 287 Lactic Acid 3.1 H 1.7 Calcium 7.9 L 7.3 L Corrected Calcium 8.4 L Phosphorus 2.1 L Magnesium 1.8 Total Bilirubin 0.9 AST 20 ALT 20 Alkaline Phosphatase 77 Total Protein 6.5 Albumin 3.4 L Globulin 3.1 Albumin/Globulin Ratio 1.1 L Procalcitonin 4.57 H Coccidioides IgM Ab Negative 11/23/24 11/23/24 11/24/24 19:54 22:40 02:40 WBC 13.9 H RBC 3.43 L Hgb 10.3 L Hct 31.8 L MCV 93 MCH 30.0 MCHC 32.4 RDW Std Deviation 48.0 H Plt Count 146 D Neut % (Auto) 85 H Lymph % (Auto) 8 L [place] % (Auto) 4 Eos % (Auto) 0 Baso % (Auto) 0 Neut # (Auto) 11.8 H Lymph # (Auto) 1.1 [place] # (Auto) 0.6 Eos # (Auto) 0.1 Baso # (Auto) 0.1 Immature Gran # (Auto) 0.35 H Absolute Nucleated RBC 0.00 Immature Gran % 3 H Nucleated RBC % 0 PT INR APTT Sodium 143 Potassium 3.5 Chloride 113 H Carbon Dioxide 20.7 Anion Gap 9 BUN 8 L Creatinine 0.8 Estim Creat Clear Calc 93.0 eGFR > 60 BUN/Creatinine Ratio 10 L Glucose [address] Glu mg/dL Hemoglobin A1c Calculated Osmolality 285 Lactic Acid 2.4 H 1.2 2.0 Calcium 7.8 L Corrected Calcium 8.4 L Phosphorus 2.1 L Magnesium 1.6 Total Bilirubin 0.7 AST 17 ALT 21 Alkaline Phosphatase 79 Total Protein 6.0 Albumin 3.2 L Globulin 2.8 Albumin/Globulin Ratio 1.1 L Procalcitonin [place]occ[place] IgM Ab 11/24/24 11/24/24 06:30 09:42 WBC RBC Hgb Hct MCV MCH MCHC RDW Std Deviation Plt Count Neut % (Auto) Lymph % (Auto) [place] % (Auto) Eos % (Auto) Baso % (Auto) Neut # (Auto) Lymph # (Auto) [place] # (Auto) Eos # (Auto) Baso # (Auto) Immature Gran # (Auto) Absolute Nucleated RBC Immature Gran % Nucleated RBC % PT INR APTT Sodium 143 Potassium 3.2 L Chloride 111 H Carbon Dioxide 21.3 Anion Gap 11 BUN 7 L Creatinine 0.8 Estim Creat Clear Calc 93.0 eGFR > 60 BUN/Creatinine Ratio 9 L Glucose [address] Glu mg/dL Hemoglobin A1c Calculated Osmolality 285 Lactic Acid 1.6 2.1 H Calcium 7.6 L Corrected Calcium Phosphorus Magnesium Total Bilirubin AST ALT Alkaline Phosphatase Total Protein Albumin Globulin Albumin/Globulin Ratio Procalcitonin [place] IgM Ab Quality Measures Quality Measures sepsis Current suspected stage: sepsis Possible source: unknown (source unknown during sign out. ) Blood cultures ordered: completed in ED Antibiotic ordered: Yes Assessment & Plan Assessment Current Active Medications: Generic Name Dose Route Start Last Admin Trade Name Freq PRN Reason Stop Dose Admin Acetaminophen 650 mg 11/22/24 21:07 11/24/24 08:42 Acetaminophen 325 Mg Tablet PO 12/22/24 21:06 650 mg Q6H PRN Administration Pain 1-3 and/or Fever >100.1 Dextrose 25 ml 11/22/24 21:10 Dextrose 50%-Water Inj 50 Ml Syringe IV 12/22/24 21:09 Q15MIN PRN BG 50-70 responsive npo pt Dextrose 50 ml 11/22/24 21:10 Dextrose 50%-Water Inj 50 Ml Syringe IV 12/22/24 21:09 Q15MIN PRN BG <50 OR BG <70 & pt unresponsive Glucagon 1 mg 11/22/24 21:10 Glucagon Inj 1 Mg Vial IM Q15MIN PRN BG <70, and no IV access Heparin Sodium (Porcine) 5,000 unit 11/23/24 09:00 11/24/24 08:37 Heparin Sod Inj 5000 Unit/Ml Vial SC 12/07/24 08:59 5,000 unit Q12HR LUIS A Administration Azithromycin 250 mg/ Sodium 250 mls @ 250 mls/hr 11/23/24 09:00 11/24/24 08:37 Chloride IV 11/27/24 08:59 250 mls/hr QDAY LUIS A Administration Meropenem 1,000 mg/ Sodium 50 mls @ 100 mls/hr 11/23/24 14:00 11/24/24 05:34 Chloride IV 11/30/24 13:59 100 mls/hr Q8HR LUIS A Administration Vancomycin HCl/Dextrose 250 mls @ 120 mls/hr 11/24/24 09:30 11/24/24 10:38 Vancomycin/D5w 1,250 Mg Ivpb IV 11/24/24 11:34 120 mls/hr X1 ONE Administration Vancomycin/Sodium Chloride 200 mls @ 120 mls/hr 11/24/24 22:00 Vancomycin/Ns 1 Gm Ivpb IV 12/01/24 21:59 Q12H LUIS A Sodium Chloride 1,000 mls @ 120 mls/hr 11/24/24 11:14 Ns IV 12/24/24 11:13 .Q8H20M [facility] Insulin Human Lispro 0 unit 11/23/24 07:30 11/24/24 11:13 Insulin Lispro (Admelog) 1 Unit/0.01 Ml Unit SC 12/23/24 07:29 Not Given [facility] Protocol Ipratropium [place] 0.5 mg 11/23/24 12:00 11/24/24 07:41 Ipratropium Rt 0.5 Mg/ 2.5 Ml Nebu INH 12/23/24 11:59 0.5 mg Q6HR LUIS A Administration Levalbuterol HCl 0.63 mg 11/23/24 12:00 11/24/24 07:41 Levalbuterol Rt 0.63 Mg/3 Ml Nebu INH 12/23/24 11:59 0.63 mg Q6HR LUIS A Administration Ondansetron HCl 4 mg 11/22/24 21:07 11/24/24 01:04 Ondansetron Inj 2 Mg/Ml Inj 2 Ml IVP 12/22/24 21:06 4 mg Q6H PRN Administration NAUSEA OR VOMITING Protocol Pharmacy Consult 1 each 11/24/24 09:15 Vancomycin Pharmacy To Dose 1 Each Each IV 12/24/24 09:14 QDAY PRN CONSULT Sennosides 1 tab 11/22/24 21:07 Senna Tablet PO 12/22/24 21:06 QDAY PRN constipation Protocol Tamsulosin HCl 0.4 mg 11/23/24 17:15 11/24/24 08:37 Tamsulosin Hcl 0.4 Mg Capsule PO 12/23/24 17:14 0.4 mg QDAY LUIS A Administration Plan Plan 54-year-old female with past medical history of insulin-dependent type 2 diabetes on Ozempic, recurrent pyelonephritis, cholecystectomy status post stent placement presenting to the ED on 11/22 with fever and lower back pain will be admitted for sepsis secondary to pyelonephritis and possibly superimposed bibasilar pneumonia and will be treated with IV antibiotics. Sepsis due to pyelonephritis with acute sepsis-related organ dysfunction as evidence by febrile, tachycardic, elevated white count and elevated T. bili. #Sepsis, secondary to pyelonephritis #Pyelonephritis #Non-obstructing right renal calculi -As stated above, patient is presenting with 1 day of fever and chills associated with flank pain radiating to his abdomen Patient denies having any dysuria, hematuria but does state that she been having fever/chills. Patient complain of naseua with CT images noted with right perinephric stranding. Diagnostics: -CT abdomen chest pelvis showed bibasilar pneumonia, primary hepatocellular disease, biliary stent in satisfactory position, nonobstructing right renal calculi and minimal right perinephric stranding Urine Culture (11/24/2024): Pending Blood Culture (11/23/2024): No growth after 24hrs Blood Culture (11/22/2024): No growth after 48 Hours Urine Culture (11/22/2024): No growth after 48 hours Plan: -Started Meropenem (11/23/2024--) and Vancomycin (11/24/2024--) given concern for possible ESBL -IVF NS at a rate of 100c/hr -Discontinue IV ceftriaxone (11/22/2024--) -Started Tamsulosin 0.4 mg PO qd -Blood and urine cultures pending - Follow up on lactic acid level. -Despite using meropenem and vancomycin, the patient still has fever (101.4F). Currently possible suspect would be hydronephrosis causing acute urinary tract obstruction OR infection of endoscopic stent to billary/pancreatic duct placed in 09/16/2024. We have consulted urology and ordered CT abd. Also consult Dr. Killian about the stent if no urinary tract obstruction. #Acute hypoxic respiratory failure, secondary to asthma exacerbation #Asthma exacerbation Patient presented with worsening shortness of breath within 1 week sick contact with decreased airway entry bilaterally. Decreased airway bilaterally. Diagnostics: -Chest x-ray showed basilar bronchitis pattern -CT does mention bibasilar pneumonia -In the ED patient given IV azithromycin-discontinued Cocci Negative QSOFA 1 Plan: -IV azithromycin (11/22/2024-11/24/2024) & dual coverage with Meropenum (11/23/2024--) -Levalbuterol & Ipratropium -Repeat blood cultrues #[id number] type 2 diabetes Last A1c of 6.3 Patient is currently on Ozempic, denies taking Jardiance or any other SGLT2 Plan: Sliding scale insulin Carb consistent diet #MASLD #Biliary stent, status post cholecystectomy Imaging findings, not pertinent to the following presentation Plan: Monitor for any acute changes Health Maintenance: Lines: PIV Diet: Carb consistent Bowel: Senna as needed GI prophylaxis: Not needed DVT prophylaxis: Heparin subcu Dispo: IV antibiotics for pyelonephritis and superimposed pneumonia Code: Full Assessment and plan discussed with my attending physician Dr. Orantes and Dr. Goodman (PGY-2) Dr. Bell (PGY-1)- Internal medicine resident
[2024-11-24] MEDS: SODIUM CHLORIDE 0.9% 1000 ML 1,000 ML 120 ML IV ×2 (12:05→22:04)
--- NOTE | 2024-11-24 12:37 | PC.SS ---
SS met with patient regarding her d/c plan.? Pt is alert/oriented.? Pt was admitted for UTI + Pneumonia.? Pt confirmed demographic and contact information is correct on facesheet.? Pt resides with and son.? Pt ambulates independently without assistance or DME.? Pt is ok with all ADLs.? Pt named her , Jose Jennings medical decision maker if she is unable unable.? Patient?s choice is to return home upon d/c.? Pt states she is diabetic, has glucometer, and test strips.? will provide transportation home. D/C plan:? Return home Next of Kin:? Jose Jennings, , phone# [phone] PCP:? [facility] Address:? Correct on facesheet
[2024-11-24 12:41] LABS: Lactate (Lactic Acid) 1.4 mMol/L (0.4-2.0)
[2024-11-24 12:42] LABS: Cocci Serology, IgG Negative (Negative)
[2024-11-24 13:00] LABS: Reflex Lactate? Y
[2024-11-24 17:37] LABS: Collection Type, Urine Clean Catch
[2024-11-24 18:26] LABS: Bacteria,Urine Rare; Bilirubin,Urine Negative (Negative); Blood,Urine Trace (Negative); Clarity,Urine Clear (Clear/Hazy); Color,Urine Lt-Yellow (Lt Yel-Yel); Glucose, Urine Negative (Negative); Ketones,Urine Negative (Negative); Leukocyte Esterase,Urine Positive (Negative); Nitrite,Urine Negative (Negative); PH,Urine 6.0 (5.0-7.0); Protein,Urine Negative (Neg - Trace); RBC,Urine 12 /hpf (0-3); Specific Gravity,Urine 1.010 (1.001-1.035); Squamous Epithelial Cell,Urine < 1 /hpf (0-5); Urobilinogen,Urine Negative mg/dL (0.0-1.0); WBC,Urine 20 /hpf (0-5)
--- NOTE | 2024-11-24 18:49 | XR_ITS ---
Examination: CT abdomen with intravenous contrast CT pelvis with intravenous contrast 2-D coronal reconstructions 2-D sagittal reconstructions Date and time of exam:November 24, 20242021 hours INDICATIONS: Sepsis alert, history pyelonephritis biliary stent. CTDI: vol (mGy) 15.6 DLP: (mGycm) 866 Technique: Multiple axial sections of the abdomen and pelvis have been obtained. 64 slice high-resolution scanner used. 3 mm axial sections have been obtained, post intravenous injection 60 cc [id number] 2-D sagittal, coronal reconstructions obtained. Low dose protocols were performed. One or more of the following dose reduction techniques were used; automated exposure control, adjustment of the mA and/or KV according to patient size, use of iterative reconstruction technique. Findings: Bibasilar pneumonia with small right pleural effusion and small left pleural effusion No focal liver or splenic lesion Biliary stent satisfactory position with no extrahepatic biliary tract dilatation Multiple right renal calculi, the largest 5 mm with diffuse edema right kidney No ureteral calculi Aorta normal size Normal appendix Intact urinary bladder Anteverted uterus Moderate disc narrowing L5-S1 IMPRESSION: Bibasilar pneumonia Biliary stent satisfactory position with no extrahepatic biliary tract dilatation Right pyelonephritis
[2024-11-24] MEDS: VANCOMYCIN/NS 1 GM IVPB 200 ML IV (22:03)
[2024-11-25] VITALS (13 sets, daily range): BP systolic 127–149; BP diastolic 66–85; PULSE 71–102; RESP 17–99; TEMP 36.4–38.7; O2SAT 87–99
[2024-11-25] MEDS: LEVALBUTEROL RT 0.63 MG/3 ML NEBU INH ×4 (01:00→20:02)
[2024-11-25] MEDS: IPRATROPIUM RT 0.5 MG/ 2.5 ML NEBU INH ×4 (01:00→20:02)
[2024-11-25] MEDS: MEROPENEM INJ 1,000 MG in SODIUM CHLORIDE 0.9% (Popper) 50 ML 100 MG IV ×3 (05:27→21:26)
[2024-11-25 06:12] LABS: Basophils # (Auto) 0.0 Thou/mm3 (0.0-0.2); Basophils % (Auto) 0 % (0-2.5); Eosinophils # (Auto) 0.1 Thou/mm3 (0.0-0.5); Eosinophils % (Auto) 1 % (0-10); Hematocrit 29.5 % (36.0-46.0); Hemoglobin 9.8 g/dL (12.0-16.0); Immature Granulocytes Auto 0.08 Thou/mm3 (0.00-0.00); Lymphocytes # (Auto) 1.4 Thou/mm3 (1.0-4.8); Lymphocytes % (Auto) 13 % (10-50); Mean Corpuscular HGB Conc 33.2 g/dl (31.0-37.0); Mean Corpuscular Hemoglobin 29.7 pg (25.0-35.0); Mean Corpuscular Volume 89 fL (80-100); Monocytes # (Auto) 0.5 Thou/mm3 (0.0-0.8); Monocytes % (Auto) 4 % (0-12); Neutrophils # (Auto) 8.8 Thou/mm3 (1.8-7.7); Neutrophils % (Auto) 81 % (37-80); Nucleated Red Blood Cell # 0.00 Thou/mm3 (0.00-0.00); Nucleated Red Blood Cell % 0 /100 WBC (0); Platelet Count 168 Thou/mm3 (140-440); RDW Standard Deviation 46.6 fL (36.4-46.3); Red Blood Count 3.30 Miln/mm3 (4.00-5.20); White Blood Count 10.9 Thou/mm3 (3.6-11.0)
[2024-11-25 06:26] LABS: Alanine Aminotransferase 15 U/L (10-49); Albumin, Serum 3.2 gm/dL (3.5-5.0); Albumin/Globulin Ratio 1.1 (1.2-2.2); Alkaline Phosphatase 83 U/L (46-116); Anion Gap 9 (7-16); Aspartate Amino Transferase < 10 U/L (0-34); BUN/Creatinine Ratio 8 Ratio (12-20); Bilirubin,Total 0.4 mg/dL (0.3-1.2); Blood Urea Nitrogen 5 mg/dL (9-23); Calcium 8.3 mg/dL (8.3-10.6); Calcium (Corrected) 8.9 mg/dL (8.5-10.1); Carbon Dioxide 22.4 mMol/L (20.0-31.0); Chloride 113 mMol/L (98-107); Creatinine (Component) 0.6 mg/dL (0.6-1.3); Estimated Creatinine Clearance 124.0 mL/min (>60); Globulin 2.9 gm/dL (2.3-3.5); Glucose 97 mg/dL (74-106); Magnesium 1.9 mg/dL (1.6-2.6); Osmolality,Calculated 284 (275-295); Phosphorous 2.0 mg/dL (2.4-5.1); Potassium 3.7 mMol/L (3.4-5.1); Sodium 144 mMol/L (136-145); Total Protein 6.1 gm/dL (5.7-8.2); eGFR > 60 See Note
[2024-11-25] MEDS: ACETAMINOPHEN 325 MG TABLET 650 MG PO ×2 (07:25→19:25)
[2024-11-25] MEDS: TAMSULOSIN HCL 0.4 MG CAPSULE PO (08:09)
[2024-11-25] MEDS: HEPARIN SOD INJ 5000 UNIT/ML VIAL SC ×2 (08:09→21:26)
[2024-11-25] MEDS: VANCOMYCIN/NS 1 GM IVPB 200 ML IV ×2 (09:36→22:26)
[2024-11-25] MEDS: SODIUM CHLORIDE 0.9% 1000 ML 1,000 ML 120 ML IV ×2 (09:37→21:25)
--- NOTE | 2024-11-25 10:41 | PC.SS ---
Follow up note: On IV antibiotic. Pt will return home upon dc.
--- NOTE | 2024-11-25 11:12 | ESCONSULT_ITS ---
RE: ALESSIA GUARDADO : 1970 DATE OF CONSULTATION: 11/24/2024 CHIEF COMPLAINT: Lower back pain and fever. COMORBID CONDITIONS: 1. Sepsis, possible pyelonephritis, nonobstructive right renal stone. 2. Question of pneumonia. 3. Noninsulin-dependent diabetes mellitus. 4. Biliary stent, status post cholecystectomy. 5. Obesity. HISTORY OF PRESENT ILLNESS: This is a 54-year-old female who is Yakut- speaking. She is known case of diabetes mellitus type 2 on Ozempic. Denies any history of urinary tract infection in the past. The patient had cholecystectomy and had a placement of stent several years ago. The patient came to the emergency room with a history of lower back pain radiating to the suprapubic region. She also has a history of fever with chills. She was admitted in the hospital with a similar presentation many months ago and was treated for pyelonephritis. Denies chest pain, shortness of breath, diarrhea, vomiting, dizziness, or headache. PAST MEDICAL HISTORY: As stated above. SURGICAL HISTORY: Status post cholecystectomy, hernia repair. ALLERGIES: NO KNOWN ALLERGIES. SOCIAL HISTORY: The patient is . She lives with her . Denies tobacco, alcohol or illicit drug use. PHYSICAL EXAMINATION: GENERAL: Condition is satisfactory. The patient is lying comfortably in the bed, not in acute distress. HEENT: Normocephalic and atraumatic. CHEST: Symmetrical. HEART: Regular rate and rhythm. ABDOMEN: No masses. Liver, spleen, kidneys not palpable. No CVA tenderness. VARIOUS LABS: Urine is negative for any infection. Her BUN is less than 5, creatinine 0.9, glucose is 178, serum potassium 139. WBC is 15.0, hemoglobin is 12.9. She had a CAT scan of the abdomen and pelvis. CAT scan revealed nonobstructive stone, right kidney. Her blood cultures are negative. Urine culture is pending. RECOMMENDATIONS: Repeat CAT scan with stone protocol to make sure the stone has not moved and causing her obstructive uropathy to treat her with antibiotics according to the culture sensitivity and repeat her blood cultures if her temperature is over 101. All above issues were discussed with the patient and I will follow her up after the CAT scan with the stone protocol to be done today. DT: 08:50:04 TT: 11:10:00 Ref: [id number] - TID: [id number]
--- NOTE | 2024-11-25 13:28 | ESPR_ITS ---
<Statement entered by Aurelio Orantes MD - 12/07/24 14:14> I reviewed above note and agree with findings and plans. I have also personally examined the patient with medicine team and went over assessment and plan with medical team including sport internship and resident physician. Documentation for date of: 11/25/24 --------- Patient examined at bedside. Last bowel movement 11/25/2024. Patient continues to urinate well per patient history this morning. WBC count continues to downtrend from 13.9 at 10.9. Normocytic anemia noted likely secondary to fluid resuscitation denies matteo blood. No fevers reported overnight. Patient denies fevers or chills. Repeat abdominal/pelvis exam noted for bibasilar pneumonia, biliary stent in satisfactory position with no extrahepatic biliary tract dilation, and right pyelonephritis with right renal calculi largest measuring 5 mm with diffuse edema of the right kidney. Continue IV antibiotics. Previous urine culture on 11/22/2024 showing E. coli likely consistent with contamination. Blood culture continues to be negative. Continue to monitor for the next 24 hours. Subjective Subjective Interval history: Patient was seen and examined at bedside. A.m. vitals and labs reviewed. Patient complains of slight shortness of breathe. Denies fever, chills, chest pain, abd pain or headache. Exam Vital Signs Temp Pulse Resp BP Pulse Ox O2 Del Method O2 Flow Rate 98.4 F 86 20 133/79 H 97 Room Air 2 11/25/24 12:00 11/25/24 13:23 11/25/24 13:23 11/25/24 12:00 11/25/24 13:23 11/25/24 12:00 11/24/24 01:12 Narrative Exam GENERAL: AAOx3. Normal mood and affect, cooperative HEENT: Normocephalic, atraumatic.? Pupils are equal and reactive.? Oral mucosa is moist. Patent Nares NECK: Supple, nontender, no thyromegaly, no meningismus, no JVD CHEST: Symmetrical, atraumatic, and with equal expansion , Nontender on palpation no deformity and no crepitus. CARDIOVASCULAR: Heart regular rhythm no murmur or gallop rub or extra beats. LUNGS: Clear to auscultation bilaterally with symmetrical chest rise.? No laboring tachypnea or wheezing. ABDOMEN: Soft, flat, nontender to palpation, no guarding or rebound tenderness.? There are no abnormal masses palpated.? Active and normal bowel sounds. EXTREMITIES: Nontender.? No edema.? No cyanosis. SKIN: Warm and dry, no jaundice or rashes noted. MUSCULOSKELETAL: No lumbar or midline bony tenderness.? No paraspinal muscle spasm or tenderness. NEURO: Cranial nerves II through XII grossly intact.? There is no focal neurologic deficits noted. Objective Labs 11/25/24 05:26 11/25/24 05:26 Labs: Laboratory Results - last 24 hr 11/24/24 11/25/24 17:20 05:26 WBC 10.9 RBC 3.30 L Hgb 9.8 L Hct 29.5 L MCV 89 MCH 29.7 MCHC 33.2 RDW Std Deviation 46.6 H Plt Count 168 Neut % (Auto) 81 H Lymph % (Auto) 13 [place] % (Auto) 4 Eos % (Auto) 1 Baso % (Auto) 0 Neut # (Auto) 8.8 H Lymph # (Auto) 1.4 [place] # (Auto) 0.5 Eos # (Auto) 0.1 Baso # (Auto) 0.0 Immature Gran # (Auto) 0.08 H Absolute Nucleated RBC 0.00 Immature Gran % 1 H Nucleated RBC % 0 Sodium 144 Potassium 3.7 D Chloride 113 H Carbon Dioxide 22.4 Anion Gap 9 BUN 5 L Creatinine 0.6 Estim Creat Clear Calc 124.0 eGFR > 60 BUN/Creatinine Ratio 8 L Glucose 97 D Calculated Osmolality 284 Calcium 8.3 Corrected Calcium 8.9 Phosphorus 2.0 L Magnesium 1.9 Total Bilirubin 0.4 AST < 10 ALT 15 Alkaline Phosphatase 83 Total Protein 6.1 Albumin 3.2 L Globulin 2.9 Albumin/Globulin Ratio 1.1 L Ur Collection Type Clean Catch Urine Color Lt-Yellow Urine Clarity Clear Urine pH 6.0 Ur Specific [place] 1.010 Urine Protein Negative Urine Glucose (UA) Negative Urine Ketones Negative Urine Blood Trace Urine Nitrite Negative Urine Bilirubin Negative Urine Urobilinogen (Auto) Negative Ur Leukocyte Esterase Positive Urine RBC 12 H Urine WBC 20 H Ur Squamous Epith Cells < 1 Urine Bacteria Rare Quality Measures Quality Measures sepsis Current suspected stage: sepsis Possible source: unknown (source unknown during sign out. ) Blood cultures ordered: completed in ED Antibiotic ordered: Yes Assessment & Plan Assessment Current Active Medications: Generic Name Dose Route Start Last Admin Trade Name Tiny PRN Reason Stop Dose Admin Acetaminophen 650 mg 11/22/24 21:07 11/25/24 07:25 Acetaminophen 325 Mg Tablet PO 12/22/24 21:06 650 mg Q6H PRN Administration Pain 1-3 and/or Fever >100.1 Dextrose 25 ml 11/22/24 21:10 Dextrose 50%-Water Inj 50 Ml Syringe IV 12/22/24 21:09 Q15MIN PRN BG 50-70 responsive npo pt Dextrose 50 ml 11/22/24 21:10 Dextrose 50%-Water Inj 50 Ml Syringe IV 12/22/24 21:09 Q15MIN PRN BG <50 OR BG <70 & pt unresponsive Glucagon 1 mg 11/22/24 21:10 Glucagon Inj 1 Mg Vial IM Q15MIN PRN BG <70, and no IV access Heparin Sodium (Porcine) 5,000 unit 11/23/24 09:00 11/25/24 08:09 Heparin Sod Inj 5000 Unit/Ml Vial SC 12/07/24 08:59 5,000 unit Q12HR LUIS A Administration Meropenem 1,000 mg/ Sodium 50 mls @ 100 mls/hr 11/23/24 14:00 11/25/24 13:07 Chloride IV 11/30/24 13:59 100 mls/hr Q8HR LUIS A Administration Vancomycin/Sodium Chloride 200 mls @ 120 mls/hr 11/24/24 22:00 11/25/24 09:36 Vancomycin/Ns 1 Gm Ivpb IV 12/01/24 21:59 120 mls/hr Q12H LUIS A Administration Protocol Sodium Chloride 1,000 mls @ 120 mls/hr 11/24/24 11:14 11/25/24 09:37 Ns IV 12/24/24 11:13 120 mls/hr .Q8H20M LUIS A Administration Insulin Human Lispro 0 unit 11/23/24 07:30 11/25/24 11:01 Insulin Lispro (Admelog) 1 Unit/0.01 Ml Unit SC 12/23/24 07:29 Not Given ACHS LUIS A Protocol Ipratropium [place] 0.5 mg 11/25/24 13:00 11/25/24 13:22 Ipratropium Rt 0.5 Mg/ 2.5 Ml Nebu INH 12/25/24 12:59 0.5 mg Q6HRRT LUIS A Administration Levalbuterol HCl 0.63 mg 11/25/24 13:00 11/25/24 13:22 Levalbuterol Rt 0.63 Mg/3 Ml Nebu INH 12/25/24 12:59 0.63 mg Q6HRRT LUIS A Administration Ondansetron HCl 4 mg 11/22/24 21:07 11/24/24 01:04 Ondansetron Inj 2 Mg/Ml Inj 2 Ml IVP 12/22/24 21:06 4 mg Q6H PRN Administration NAUSEA OR VOMITING Protocol Pharmacy Consult 1 each 11/24/24 09:15 Vancomycin Pharmacy To Dose 1 Each Each IV 12/24/24 09:14 QDAY PRN CONSULT Sennosides 1 tab 11/22/24 21:07 Senna Tablet PO 12/22/24 21:06 QDAY PRN constipation Protocol Tamsulosin HCl 0.4 mg 11/23/24 17:15 11/25/24 08:09 Tamsulosin Hcl 0.4 Mg Capsule PO 12/23/24 17:14 0.4 mg QDAY LUIS A Administration Plan 54-year-old female with past medical history of insulin-dependent type 2 diabetes on Ozempic, recurrent pyelonephritis, cholecystectomy status post stent placement presenting to the ED on 11/22 with fever and lower back pain will be admitted for sepsis secondary to pyelonephritis and possibly superimposed bibasilar pneumonia and will be treated with IV antibiotics. Sepsis due to pyelonephritis with acute sepsis-related organ dysfunction as evidence by febrile, tachycardic, elevated white count and elevated T. bili. #Sepsis, secondary to pyelonephritis #Pyelonephritis #Non-obstructing right renal calculi -As stated above, patient is presenting with 1 day of fever and chills associated with flank pain radiating to his abdomen Patient denies having any dysuria, hematuria but does state that she been having fever/chills. Patient complain of naseua with CT images noted with right perinephric stranding. Diagnostics: -CT abdomen/chest/pelvis(11/22/2024): showed bibasilar pneumonia, primary hepatocellular disease, biliary stent in satisfactory position, nonobstructing right renal calculi and minimal right perinephric stranding -Blood Culture (11/22/2024): No growth after 48 Hours -Urine Culture (11/22/2024): Grew E.coli -Blood Culture (11/23/2024): No growth after 48 hrs -Urine Culture (11/24/2024): Pending -CT abd/pelvis (11/24/2024): Bibasilar pneumonia, Biliary stent satisfactory position with no extrahepatic biliary tract dilatation, Right pyelonephritis Plan: -Started Meropenem (11/23/2024--) and Vancomycin (11/24/2024--) given concern for possible ESBL -IVF NS at a rate of 100c/hr -Discontinue IV ceftriaxone (11/22/2024--) -Started Tamsulosin 0.4 mg PO qd -Blood and urine cultures pending - Follow up on lactic acid level. -Patient's current Temperature is 98.4F. Continue using meropenem 1g IV q8h and vancomycin 1g IV q12h. #Acute hypoxic respiratory failure, secondary to asthma exacerbation #Asthma exacerbation Patient presented with worsening shortness of breath within 1 week sick contact with decreased airway entry bilaterally. Decreased airway bilaterally. Diagnostics: -Chest x-ray showed basilar bronchitis pattern -CT does mention bibasilar pneumonia -In the ED patient given IV azithromycin-discontinued Cocci Negative QSOFA 1 Plan: -IV azithromycin (11/22/2024-11/24/2024) & dual coverage with Meropenum (11/23/2024--) -Levalbuterol & Ipratropium -Repeat blood cultrues #[id number] type 2 diabetes Last A1c of 6.3 Patient is currently on Ozempic, denies taking Jardiance or any other SGLT2 Plan: Sliding scale insulin Carb consistent diet #MASLD #Biliary stent, status post cholecystectomy Imaging findings, not pertinent to the following presentation Plan: Monitor for any acute changes Health Maintenance: Lines: PIV Diet: Carb consistent Bowel: Senna as needed GI prophylaxis: Not needed DVT prophylaxis: Heparin subcu Dispo: IV antibiotics for pyelonephritis and superimposed pneumonia Code: Full Assessment and plan discussed with my attending physician Dr. Orantes and Dr. Goodman (PGY-2) Dr. Bell (PGY-1)- Internal medicine resident - The patient's plan was discussed with attending Dr Rolanda Goodman MD PGY2 Internal Medicine
[2024-11-25 21:25] LABS: Vancomycin,Trough 8.7 mcg/mL (5.0-10.0)
[2024-11-25] MEDS: NAPH,KPH MBDB 1 PACKET (1.5 GM) PO (21:40)
[2024-11-26] VITALS (11 sets, daily range): BP systolic 113–147; BP diastolic 61–90; PULSE 67–93; RESP 13–28; TEMP 36.4–37.2; O2SAT 92–100; BMI 38.0
[2024-11-26] MEDS: LEVALBUTEROL RT 0.63 MG/3 ML NEBU INH ×5 (02:17→23:36)
[2024-11-26] MEDS: IPRATROPIUM RT 0.5 MG/ 2.5 ML NEBU INH ×5 (02:17→23:39)
[2024-11-26] MEDS: MEROPENEM INJ 1,000 MG in SODIUM CHLORIDE 0.9% (Popper) 50 ML 100 MG IV ×3 (05:58→21:21)
[2024-11-26 07:00] LABS: Magnesium 1.7 mg/dL (1.6-2.6); Phosphorous 2.4 mg/dL (2.4-5.1)
[2024-11-26] MEDS: SODIUM CHLORIDE 0.9% 1000 ML 1,000 ML 120 ML IV ×2 (08:04→16:58)
[2024-11-26] MEDS: TAMSULOSIN HCL 0.4 MG CAPSULE PO (08:04)
[2024-11-26] MEDS: HEPARIN SOD INJ 5000 UNIT/ML VIAL SC ×2 (08:04→21:21)
[2024-11-26] MEDS: Vancomycin Inj 1,500 MG in SODIUM CHLORIDE 0.9% 500 ML 500 ML 200 MG IV ×2 (10:27→22:14)
--- NOTE | 2024-11-26 11:13 | ECHO_ITS ---
Transthoracic Echo Report Ht (in): 64 Wt (lb): 223 Exam Location: Echo Lab Status: Inpatient Team Otr Truck Driver: Sachi Verdugo Indications: Procedure Performed: BP: 138 / 90 HR: 67 Technical Quality: Adequate MEASUREMENTS (Male / Female) Normal Values 2D ECHO LV Diastolic Diameter PLAX 5.0 cm 4.2 - 5.9 / 3.9 - 5.3 cm LV Systolic Diameter PLAX 3.7 cm IVS Diastolic Thickness 1.1 cm 0.6 - 1.0 / 0.6 - 0.9 cm LVPW Diastolic Thickness 0.8 cm 0.6 - 1.0 / 0.6 - 0.9 cm LV Relative Wall Thickness 0.4 LVOT Diameter 2.0 cm LA Volume Index 35.6 cm?/m? 16 - 28 cm?/m? DOPPLER AV Peak Velocity 191.0 cm/s AV Peak Gradient 14.6 mmHg AI Peak Velocity 391.0 cm/s AI Peak Gradient 61.2 mmHg AI Pressure Half Time 255.0 ms LVOT Peak Velocity 109.0 cm/s LVOT Peak Gradient 4.8 mmHg AV Area Cont Eq pk 1.8 cm? MV Area PHT 3.9 cm? MR Peak Velocity 465.0 cm/s MR Peak Gradient 86.5 mmHg MR ERO PISA 0.7 cm? Mitral E Point Velocity 128.0 cm/s Mitral A Point Velocity 115.0 cm/s Mitral E to A Ratio 1.1 LV E' Lateral Velocity 7.3 cm/s Mitral E to LV E' Lateral Ratio 17.6 LV E' Septal Velocity 7.2 cm/s Mitral E to LV E' Septal Ratio 17.8 TR Peak Velocity 254.5 cm/s TR Peak Gradient 25.9 mmHg PV Peak Velocity 111.0 cm/s PV Peak Gradient 4.9 mmHg FINDINGS Left Ventricle Normal left ventricular size, wall thickness, systolic function with no obvious regional wall motion abnormalities. Normal left ventricular diastolic filling pattern for age. The ejection fraction is visually estimated at 55 %. Right Ventricle The right ventricle is normal in size and systolic function. The estimated right ventricular systolic pressure, 31 mmHg. RAP 15mmHg. Left Atrium The left atrial cavity size is mildly increased. Right Atrium The right atrium is normal by two-dimensional imaging, color flow and Doppler imaging with no structural abnormalities, no thrombus formation present. Atrial Septum The interatrial septum appears normal with no evidence of a shunt. Aorta The aorta is normal by two-dimensional, color flow and Doppler interrogation. Mitral Valve The mitral valve is normal by two-dimensional, color flow and Doppler interrogation. There is mild to moderate eccentric mitral regurgitation. Aortic Valve The aortic valve is trileaflet and normal by two-dimensional, color flow and Doppler interrogation. There is trace aortic valve regurgitation. Tricuspid Valve The tricuspid valve is normal by two-dimensional, color flow and Doppler interrogation. There is trace tricuspid regurgitation. Pulmonic Valve The pulmonic valve is not well visualized. There is no significant pulmonic valve regurgitation. Vessels The pulmonary artery appears normal. The inferior vena cava is severely enlarged with no collapse. Pericardium The pericardium is normal by two-dimensional imaging. There is no significant pericardial effusion. CONCLUSIONS Indications: R/O Vegetations LV Normal. Estimated EF 55%. Normal Diastology. RV Normal. RVSP 31mmHg. RAP 15mmHg. Mild LAE. Mild to Moderate MR. Trace AI, TR. Dilated IVC. No Pericardial Effusion. Barak Leary (Electronically Signed) Final Date: 27 November 2024 11:12
[2024-11-26 11:30] LABS: Basophils # (Auto) 0.0 Thou/mm3 (0.0-0.2); Basophils % (Auto) 0 % (0-2.5); Eosinophils # (Auto) 0.2 Thou/mm3 (0.0-0.5); Eosinophils % (Auto) 3 % (0-10); Hematocrit 28.1 % (36.0-46.0); Hemoglobin 9.2 g/dL (12.0-16.0); Immature Granulocytes Auto 0.02 Thou/mm3 (0.00-0.00); Lymphocytes # (Auto) 1.4 Thou/mm3 (1.0-4.8); Lymphocytes % (Auto) 24 % (10-50); Mean Corpuscular HGB Conc 32.7 g/dl (31.0-37.0); Mean Corpuscular Hemoglobin 29.6 pg (25.0-35.0); Mean Corpuscular Volume 90 fL (80-100); Monocytes # (Auto) 0.5 Thou/mm3 (0.0-0.8); Monocytes % (Auto) 8 % (0-12); Neutrophils # (Auto) 3.8 Thou/mm3 (1.8-7.7); Neutrophils % (Auto) 65 % (37-80); Nucleated Red Blood Cell # 0.00 Thou/mm3 (0.00-0.00); Nucleated Red Blood Cell % 0 /100 WBC (0); Platelet Count 182 Thou/mm3 (140-440); RDW Standard Deviation 47.9 fL (36.4-46.3); Red Blood Count 3.11 Miln/mm3 (4.00-5.20); White Blood Count 5.8 Thou/mm3 (3.6-11.0)
[2024-11-26 11:40] LABS: Alanine Aminotransferase 15 U/L (10-49); Albumin, Serum 2.8 gm/dL (3.5-5.0); Albumin/Globulin Ratio 1.2 (1.2-2.2); Alkaline Phosphatase 73 U/L (46-116); Anion Gap 10 (7-16); Aspartate Amino Transferase 14 U/L (0-34); BUN/Creatinine Ratio 10 Ratio (12-20); Bilirubin,Total 0.3 mg/dL (0.3-1.2); Blood Urea Nitrogen 5 mg/dL (9-23); Calcium 7.3 mg/dL (8.3-10.6); Calcium (Corrected) 8.3 mg/dL (8.5-10.1); Carbon Dioxide 23.7 mMol/L (20.0-31.0); Chloride 113 mMol/L (98-107); Creatinine (Component) 0.5 mg/dL (0.6-1.3); Estimated Creatinine Clearance 148.8 mL/min (>60); Globulin 2.4 gm/dL (2.3-3.5); Glucose 99 mg/dL (74-106); Osmolality,Calculated 289 (275-295); Potassium 3.4 mMol/L (3.4-5.1); Sodium 147 mMol/L (136-145); Total Protein 5.2 gm/dL (5.7-8.2); eGFR > 60 See Note
--- NOTE | 2024-11-26 13:26 | ESPR_ITS ---
<Statement entered by Aurelio Orantes MD - 12/07/24 14:15> I reviewed above note and agree with findings and plans. I have also personally examined the patient with medicine team and went over assessment and plan with medical team including customer success intern and resident physician. Documentation for date of: 11/26/24 Patient examined at bedside. Denied chills or diaphoresis overnight. Overnight patient continued to spike a fever. Patient continues to have some air and vancomycin. Pending echo. If pyrexia persist consider repeat cocci, HIV, [place] and aspergillosis. Subjective Subjective Interval history: Patient was seen and examined at bedside. A.m. vitals and labs reviewed. Patient complains of slight shortness of breathe and cough. Denies fever, chills, chest pain, abd pain or headache. Exam Vital Signs Temp Pulse Resp BP Pulse Ox O2 Del Method O2 Flow Rate 97.6 F 67 17 138/90 H 92 L Room Air 2 11/26/24 12:00 11/26/24 12:00 11/26/24 12:11/26/24 12:11/26/24 12:11/26/24 12:11/26/24 06:41 Narrative Exam GENERAL: AAOx3. Normal mood and affect, cooperative HEENT: Normocephalic, atraumatic.? Pupils are equal and reactive.? Oral mucosa is moist. Patent Nares NECK: Supple, nontender, no thyromegaly, no meningismus, no JVD CHEST: Symmetrical, atraumatic, and with equal expansion , Nontender on palpation no deformity and no crepitus. CARDIOVASCULAR: Heart regular rhythm no murmur or gallop rub or extra beats. LUNGS: Clear to auscultation bilaterally with symmetrical chest rise.? No laboring tachypnea or wheezing. ABDOMEN: Soft, flat, nontender to palpation, no guarding or rebound tenderness.? There are no abnormal masses palpated.? Active and normal bowel sounds. EXTREMITIES: Nontender.? No edema.? No cyanosis. SKIN: Warm and dry, no jaundice or rashes noted. MUSCULOSKELETAL: No lumbar or midline bony tenderness.? No paraspinal muscle spasm or tenderness. NEURO: Cranial nerves II through XII grossly intact.? There is no focal neurologic deficits noted. Objective Labs 11/26/24 05:30 11/26/24 05:30 Labs: Laboratory Results - last 24 hr 11/25/24 11/26/24 20:45 05:30 WBC 5.8 D RBC 3.11 L Hgb 9.2 L Hct 28.1 L MCV 90 MCH 29.6 MCHC 32.7 RDW Std Deviation 47.9 H Plt Count 182 Neut % (Auto) 65 Lymph % (Auto) 24 [place] % (Auto) 8 Eos % (Auto) 3 Baso % (Auto) 0 Neut # (Auto) 3.8 Lymph # (Auto) 1.4 [place] # (Auto) 0.5 Eos # (Auto) 0.2 Baso # (Auto) 0.0 Immature Gran # (Auto) 0.02 H Absolute Nucleated RBC 0.00 Immature Gran % 0 Nucleated RBC % 0 Sodium 147 H Potassium 3.4 Chloride 113 H Carbon Dioxide 23.7 Anion Gap 10 BUN 5 L Creatinine 0.5 L Estim Creat Clear Calc 148.8 eGFR > 60 BUN/Creatinine Ratio 10 L Glucose 99 Calculated Osmolality 289 Calcium 7.3 L Corrected Calcium 8.3 L Phosphorus 2.4 Magnesium 1.7 Total Bilirubin 0.3 AST 14 ALT 15 Alkaline Phosphatase 73 Total Protein 5.2 L Albumin 2.8 L Globulin 2.4 Albumin/Globulin Ratio 1.2 Vancomycin Trough 8.7 Quality Measures Quality Measures sepsis Current suspected stage: sepsis Possible source: unknown (source unknown during sign out. ) Blood cultures ordered: completed in ED Antibiotic ordered: Yes Assessment & Plan Assessment Current Active Medications: Generic Name Dose Route Start Last Admin Trade Name Freq PRN Reason Stop Dose Admin Acetaminophen 650 mg 11/22/24 21:07 11/25/24 19:25 Acetaminophen 325 Mg Tablet PO 12/22/24 21:06 650 mg Q6H PRN Administration Pain 1-3 and/or Fever >100.1 Dextrose 25 ml 11/22/24 21:10 Dextrose 50%-Water Inj 50 Ml Syringe IV 12/22/24 21:09 Q15MIN PRN BG 50-70 responsive npo pt Dextrose 50 ml 11/22/24 21:10 Dextrose 50%-Water Inj 50 Ml Syringe IV 12/22/24 21:09 Q15MIN PRN BG <50 OR BG <70 & pt unresponsive Glucagon 1 mg 11/22/24 21:10 Glucagon Inj 1 Mg Vial IM Q15MIN PRN BG <70, and no IV access Heparin Sodium (Porcine) 5,000 unit 11/23/24 09:00 11/26/24 08:04 Heparin Sod Inj 5000 Unit/Ml Vial SC 12/07/24 08:59 5,000 unit Q12HR LUIS A Administration Meropenem 1,000 mg/ Sodium 50 mls @ 100 mls/hr 11/23/24 14:00 11/26/24 13:06 Chloride IV 11/30/24 13:59 100 mls/hr Q8HR LUIS A Administration Sodium Chloride 1,000 mls @ 120 mls/hr 11/24/24 11:14 11/26/24 08:04 Ns IV 12/24/24 11:13 120 mls/hr .Q8H20M LUIS A Administration Vancomycin HCl 1,500 mg/ 500 mls @ 200 mls/hr 11/26/24 10:00 11/26/24 10:27 Sodium Chloride IV 12/03/24 09:59 200 mls/hr Q12H LUIS A Administration Insulin Human Lispro 0 unit 11/23/24 07:30 11/26/24 11:06 Insulin Lispro (Admelog) 1 Unit/0.01 Ml Unit SC 12/23/24 07:29 Not Given ACHS LUIS A Protocol Ipratropium [place] 0.5 mg 11/25/24 13:00 11/26/24 06:40 Ipratropium Rt 0.5 Mg/ 2.5 Ml Nebu INH 12/25/24 12:59 0.5 mg Q6HRRT LUIS A Administration Levalbuterol HCl 0.63 mg 11/25/24 13:00 11/26/24 06:40 Levalbuterol Rt 0.63 Mg/3 Ml Nebu INH 12/25/24 12:59 0.63 mg Q6HRRT LUIS A Administration Ondansetron HCl 4 mg 11/22/24 21:07 11/24/24 01:04 Ondansetron Inj 2 Mg/Ml Inj 2 Ml IVP 12/22/24 21:06 4 mg Q6H PRN Administration NAUSEA OR VOMITING Protocol Pharmacy Consult 1 each 11/24/24 09:15 Vancomycin Pharmacy To Dose 1 Each Each IV 12/24/24 09:14 QDAY PRN CONSULT Sennosides 1 tab 11/22/24 21:07 Senna Tablet PO 12/22/24 21:06 QDAY PRN constipation Protocol Tamsulosin HCl 0.4 mg 11/23/24 17:15 11/26/24 08:04 Tamsulosin Hcl 0.4 Mg Capsule PO 12/23/24 17:14 0.4 mg QDAY LUIS A Administration Plan 54-year-old female with past medical history of insulin-dependent type 2 diabetes on Ozempic, recurrent pyelonephritis, cholecystectomy status post stent placement presenting to the ED on 11/22 with fever and lower back pain will be admitted for sepsis secondary to pyelonephritis and possibly superimposed bibasilar pneumonia and will be treated with IV antibiotics. #Sepsis, secondary to pyelonephritis #Pyelonephritis #Non-obstructing right renal calculi -As stated above, patient is presented with 1 day of fever and chills associated with flank pain radiating to his abdomen Patient denies having any dysuria, hematuria but does state that she been having fever/chills. Patient complained of naseua with CT images noted with right perinephric stranding. -Sepsis due to pyelonephritis with acute sepsis-related organ dysfunction as evidence by febrile, tachycardic, elevated white count and elevated T. bili. -Patient continues to experience undulating fevers despite using meropenem and vancomycin. Afebrile status must be maintained for 24hrs prior to discharge. -Although Blood culture was negative, there is a possibility of infection that are culture-negative and often require echo to visualize vegetations to make the diagnosis. Diagnostics: -CT abdomen/chest/pelvis(11/22/2024): showed bibasilar pneumonia, primary hepatocellular disease, biliary stent in satisfactory position, nonobstructing right renal calculi and minimal right perinephric stranding -Blood Culture (11/22/2024): No growth after 48 Hours -Urine Culture (11/22/2024): Grew E.coli -Blood Culture (11/23/2024): No growth after 48 hrs -Urine Culture (11/24/2024): Negative -CT abd/pelvis (11/24/2024): Bibasilar pneumonia, Biliary stent satisfactory position with no extrahepatic biliary tract dilatation, Right pyelonephritis - ECHO has been taken on 11/26/2024. pending result. Plan: -Started Meropenem (11/23/2024--) and Vancomycin (11/24/2024--) given concern for possible ESBL -Pending Echo -If pyrexia persists will follow up with HIV study, repeat cocci, aspergillosis, and [place]. -Discontinue IV ceftriaxone (11/22/2024--) -Started Tamsulosin 0.4 mg PO qd - Follow up on lactic acid level. -Patient's current Temperature is 98.0F. Continue using meropenem 1g IV q8h and vancomycin 1g IV q12h. #Acute hypoxic respiratory failure, secondary to asthma exacerbation #Asthma exacerbation Patient presented with worsening shortness of breath within 1 week sick contact with decreased airway entry bilaterally. Decreased airway bilaterally. Diagnostics: -Chest x-ray showed basilar bronchitis pattern -CT does mention bibasilar pneumonia -In the ED patient given IV azithromycin-discontinued Cocci Negative QSOFA 1 Plan: -IV azithromycin (11/22/2024-11/24/2024) & dual coverage with Meropenum (11/23/2024--) -Levalbuterol & Ipratropium -Repeat blood cultrues #[id number] type 2 diabetes Last A1c of 6.3 Patient is currently on Ozempic, denies taking Jardiance or any other SGLT2 Plan: Sliding scale insulin Carb consistent diet #MASLD #Biliary stent, status post cholecystectomy Imaging findings, not pertinent to the following presentation Plan: Monitor for any acute changes Health Maintenance: Lines: PIV Diet: Carb consistent Bowel: Senna as needed GI prophylaxis: Not needed DVT prophylaxis: Heparin subcu Dispo: IV antibiotics for pyelonephritis and superimposed pneumonia Code: Full Assessment and plan discussed with my attending physician Dr. Orantes and Dr. Goodman (PGY-2) Dr. Bell (PGY-1)- Internal medicine resident - The patient's plan was discussed with attending Dr. Rolanda Goodman MD PGY2 Internal Medicine
[2024-11-27] VITALS (11 sets, daily range): BP systolic 127–144; BP diastolic 69–86; PULSE 66–91; RESP 17–24; TEMP 36.1–37.4; O2SAT 94–100
[2024-11-27] MEDS: ACETAMINOPHEN 325 MG TABLET 650 MG PO (04:06)
[2024-11-27] MEDS: MEROPENEM INJ 1,000 MG in SODIUM CHLORIDE 0.9% (Popper) 50 ML 100 MG IV ×2 (05:25→13:49)
[2024-11-27 06:22] LABS: Basophils # (Auto) 0.0 Thou/mm3 (0.0-0.2); Basophils % (Auto) 1 % (0-2.5); Eosinophils # (Auto) 0.2 Thou/mm3 (0.0-0.5); Eosinophils % (Auto) 4 % (0-10); Hematocrit 27.5 % (36.0-46.0); Hemoglobin 9.1 g/dL (12.0-16.0); Immature Granulocytes Auto 0.04 Thou/mm3 (0.00-0.00); Lymphocytes # (Auto) 1.8 Thou/mm3 (1.0-4.8); Lymphocytes % (Auto) 35 % (10-50); Mean Corpuscular HGB Conc 33.1 g/dl (31.0-37.0); Mean Corpuscular Hemoglobin 29.7 pg (25.0-35.0); Mean Corpuscular Volume 90 fL (80-100); Monocytes # (Auto) 0.6 Thou/mm3 (0.0-0.8); Monocytes % (Auto) 11 % (0-12); Neutrophils # (Auto) 2.4 Thou/mm3 (1.8-7.7); Neutrophils % (Auto) 48 % (37-80); Nucleated Red Blood Cell # 0.00 Thou/mm3 (0.00-0.00); Nucleated Red Blood Cell % 0 /100 WBC (0); Platelet Count 181 Thou/mm3 (140-440); RDW Standard Deviation 46.0 fL (36.4-46.3); Red Blood Count 3.06 Miln/mm3 (4.00-5.20); White Blood Count 5.0 Thou/mm3 (3.6-11.0)
[2024-11-27] MEDS: IPRATROPIUM RT 0.5 MG/ 2.5 ML NEBU INH ×2 (06:51→15:07)
[2024-11-27] MEDS: LEVALBUTEROL RT 0.63 MG/3 ML NEBU INH ×2 (06:51→15:07)
[2024-11-27 07:00] LABS: Alanine Aminotransferase 15 U/L (10-49); Albumin, Serum 3.1 gm/dL (3.5-5.0); Albumin/Globulin Ratio 1.1 (1.2-2.2); Alkaline Phosphatase 68 U/L (46-116); Anion Gap 12 (7-16); Aspartate Amino Transferase 14 U/L (0-34); BUN/Creatinine Ratio 8 Ratio (12-20); Bilirubin,Total 0.4 mg/dL (0.3-1.2); Blood Urea Nitrogen < 5 mg/dL (9-23); Calcium 7.9 mg/dL (8.3-10.6); Calcium (Corrected) 8.6 mg/dL (8.5-10.1); Carbon Dioxide 23.2 mMol/L (20.0-31.0); Chloride 110 mMol/L (98-107); Creatinine (Component) 0.6 mg/dL (0.6-1.3); Estimated Creatinine Clearance 126.9 mL/min (>60); Globulin 2.8 gm/dL (2.3-3.5); Glucose 92 mg/dL (74-106); Magnesium 1.4 mg/dL (1.6-2.6); Osmolality,Calculated 285 (275-295); Phosphorous 2.4 mg/dL (2.4-5.1); Potassium 2.9 mMol/L (3.4-5.1); Sodium 145 mMol/L (136-145); Total Protein 5.9 gm/dL (5.7-8.2); eGFR > 60 See Note
[2024-11-27] MEDS: HEPARIN SOD INJ 5000 UNIT/ML VIAL SC (08:22)
[2024-11-27] MEDS: TAMSULOSIN HCL 0.4 MG CAPSULE PO (08:22)
--- NOTE | 2024-11-27 09:01 | XR_ITS ---
Examination: CT abdomen and pelvis without contrast. Coronal 3-D reconstructions. Sagittal 2-D reconstructions. Date and time of exam:November 27, 2024 0924 hours INDICATIONS: Right-sided flank pain this morning COMPARISON: November 24, 2024 CTDI: vol (mGy): 14.9 DLP: (mGycm): 833 Technique: Axial images of the abdomen have been obtained, 3 mm slice thickness Intravenous contrast material has not been administered. Low dose protocols were performed. One or more of the following dose reduction techniques were used; automated exposure control, adjustment of the mA and/or KV according to patient size, use of iterative reconstruction technique. Findings: Bibasilar pneumonia with small bilateral pleural effusions Hepatomegaly 19 cm Fatty infiltration throughout the liver Biliary stent satisfactory position with no extrahepatic biliary tract dilatation Absent gallbladder 5 mm 2 mm right renal calculi No hydronephrosis or ureteral calculi Aorta normal size Normal appendix No bowel obstruction No diverticulitis Anteverted uterus Significant osteopenia No bladder mass or bladder calculi IMPRESSION: Nonobstructing right renal calculi No hydronephrosis or ureteral calculi
--- NOTE | 2024-11-27 09:18 | PC.NURSE ---
Pt to CT via w/c in stable condition.
[2024-11-27] MEDS: VANCOMYCIN/NS 750 MG IVPB 750 MG/150 ML BAG 120 MG IV ×2 (10:13→14:43)
--- NOTE | 2024-11-27 10:18 | PD.RESPRO ---
Documentation for date of: 11/27/24 Subjective Subjective Interval history: 2 Exam Vital Signs Temp Pulse Resp BP Pulse Ox O2 Del Method O2 Flow Rate 97.0 F 68 24 H 133/79 H 96 Room Air 2 11/27/24 08:00 11/27/24 08:13 11/27/24 08:00 11/27/24 08:00 11/27/24 08:00 11/27/24 08:00 11/26/24 23:39 Objective Labs 11/27/24 05:41 11/27/24 05:41 Labs: Laboratory Results - last 24 hr 11/26/24 11/27/24 05:30 05:41 WBC 5.8 D 5.0 RBC 3.11 L 3.06 L Hgb 9.2 L 9.1 L Hct 28.1 L 27.5 L MCV 90 90 MCH 29.6 29.7 MCHC 32.7 33.1 RDW Std Deviation 47.9 H 46.0 Plt Count 182 181 Neut % (Auto) 65 48 Lymph % (Auto) 24 35 [place] % (Auto) 8 11 Eos % (Auto) 3 4 Baso % (Auto) 0 1 Neut # (Auto) 3.8 2.4 Lymph # (Auto) 1.4 1.8 [place] # (Auto) 0.5 0.6 Eos # (Auto) 0.2 0.2 Baso # (Auto) 0.0 0.0 Immature Gran # (Auto) 0.02 H 0.04 H Absolute Nucleated RBC 0.00 0.00 Immature Gran % 0 1 H Nucleated RBC % 0 0 Sodium 147 H 145 Potassium 3.4 2.9 L D Chloride 113 H 110 H Carbon Dioxide 23.7 23.2 Anion Gap 10 12 BUN 5 L < 5 L Creatinine 0.5 L 0.6 Estim Creat Clear Calc 148.8 126.9 eGFR > 60 > 60 BUN/Creatinine Ratio 10 L 8 L Glucose 99 92 Calculated Osmolality 289 285 Calcium 7.3 L 7.9 L Corrected Calcium 8.3 L 8.6 Phosphorus 2.4 Magnesium 1.4 L Total Bilirubin 0.3 0.4 AST 14 14 ALT 15 15 Alkaline Phosphatase 73 68 Total Protein 5.2 L 5.9 Albumin 2.8 L 3.1 L Globulin 2.4 2.8 Albumin/Globulin Ratio 1.2 1.1 L Quality Measures Quality Measures sepsis Possible source: unknown (source unknown during sign out. ) Blood cultures ordered: completed in ED Assessment & Plan Assessment Current Active Medications: Generic Name Dose Route Start Last Admin Trade Name Freq PRN Reason Stop Dose Admin Acetaminophen 650 mg 11/22/24 21:07 11/27/24 04:06 Acetaminophen 325 Mg Tablet PO 12/22/24 21:06 650 mg Q6H PRN Administration Pain 1-3 and/or Fever >100.1 Dextrose 25 ml 11/22/24 21:10 Dextrose 50%-Water Inj 50 Ml Syringe IV 12/22/24 21:09 Q15MIN PRN BG 50-70 responsive npo pt Dextrose 50 ml 11/22/24 21:10 Dextrose 50%-Water Inj 50 Ml Syringe IV 12/22/24 21:09 Q15MIN PRN BG <50 OR BG <70 & pt unresponsive Glucagon 1 mg 11/22/24 21:10 Glucagon Inj 1 Mg Vial IM Q15MIN PRN BG <70, and no IV access Heparin Sodium (Porcine) 5,000 unit 11/23/24 09:00 11/27/24 08:22 Heparin Sod Inj 5000 Unit/Ml Vial SC 12/07/24 08:59 5,000 unit Q12HR LUIS A Administration Meropenem 1,000 mg/ Sodium 50 mls @ 100 mls/hr 11/23/24 14:00 11/27/24 05:25 Chloride IV 11/30/24 13:59 100 mls/hr Q8HR LUIS A Administration Vancomycin HCl 1,500 mg/ 500 mls @ 200 mls/hr 11/26/24 10:00 11/26/24 22:14 Sodium Chloride IV 12/03/24 09:59 200 mls/hr Q12H LUIS A Administration Magnesium Sulfate 2 gm in 50 mls @ 25 mls/hr 11/27/24 08:50 Magnesium Sulfate Ivpb IV 11/27/24 10:49 X1 ONE Potassium Chloride 10 meq in 100 mls @ 100 mls/hr 11/27/24 08:50 Kcl Ivpb IV 11/27/24 14:49 Q1H LUIS A Vancomycin/Sodium Chloride 750 mg in 150 mls @ 120 mls/hr 11/27/24 09:30 11/27/24 10:13 Vancomycin/Ns 750 Mg Ivpb IV 12/04/24 09:29 120 mls/hr Q8HR LUIS A Administration Insulin Human Lispro 0 unit 11/23/24 07:30 11/27/24 07:28 Insulin Lispro (Admelog) 1 Unit/0.01 Ml Unit SC 12/23/24 07:29 Not Given ACHS LUIS A Protocol Ipratropium [place] 0.5 mg 11/26/24 23:00 11/27/24 06:51 Ipratropium Rt 0.5 Mg/ 2.5 Ml Nebu INH 12/26/24 22:59 0.5 mg Q8HRRT LUIS A Administration Levalbuterol HCl 0.63 mg 11/26/24 23:00 11/27/24 06:51 Levalbuterol Rt 0.63 Mg/3 Ml Nebu INH 12/26/24 22:59 0.63 mg Q8HRRT LUIS A Administration Ondansetron HCl 4 mg 11/22/24 21:07 11/24/24 01:04 Ondansetron Inj 2 Mg/Ml Inj 2 Ml IVP 12/22/24 21:06 4 mg Q6H PRN Administration NAUSEA OR VOMITING Protocol Pharmacy Consult 1 each 11/24/24 09:15 Vancomycin Pharmacy To Dose 1 Each Each IV 12/24/24 09:14 QDAY PRN CONSULT Sennosides 1 tab 11/22/24 21:07 Senna Tablet PO 12/22/24 21:06 QDAY PRN constipation Protocol Tamsulosin HCl 0.4 mg 11/23/24 17:15 11/27/24 08:22 Tamsulosin Hcl 0.4 Mg Capsule PO 12/23/24 17:14 0.4 mg QDAY LUIS A Administration
[2024-11-27] MEDS: POTASSIUM CHL 10 mEq IVPB 10 MEQ/100 ML BAG 75 MEQ IV ×4 (10:33→19:23)
[2024-11-27] MEDS: Magnesium Sulfate 2 GM Ivpb 2 GM/50 ML BAG IV (10:40)
--- NOTE | 2024-11-27 11:12 | PC.SS ---
Follow up note: On 2 IV antibiotics. Monitoring fevers. Pt will return home upon dc.
[2024-11-27 14:11] LABS: HIV (1&2) Antibody Rapid Non-Reactive
[2024-11-27] MEDS: POTASSIUM CHL 10 mEq IVPB 10 MEQ/100 ML BAG 50 MEQ IV ×2 (14:28→16:39)
--- NOTE | 2024-11-27 14:41 | PC.NURSE ---
Discharge noted, called Dr. Randle patient to be discharged after last bag of KCL is finished.
--- NOTE | 2024-11-27 15:01 | ESDS_ITS ---
<Statement entered by Aurelio Orantes MD - 12/07/24 14:15> I reviewed above note and agree with findings and plans. I have also personally examined the patient with medicine team and went over assessment and plan with medical team including internet media planner and resident physician. Planned Discharge Date 11/27/24 DS: Providers Provider Date of admission: 11/22/24 21:07 Primary care physician: Physician No Primary/Family Admitting Provider: Ranjith Ignacio MD Attending Provider on Admission: Aurelio Orantes MD Consults: 11/23/24 13:49 Consult to Infectious Diseases Routine Comment: Consulting Provider: Vazquez Crockett 11/24/24 17:20 Consult to Urology Urgent Comment: pyelonephritis Consulting Provider: All [employer]ung Attending Provider on DC: Aurelio Orantes MD Discharging Provider: Lady Randle MD DS: Diagnosis Problem List Completed Was Problem List Reviewed/Reconciled?: Yes Hospital Course Hospital Course Hospital course: The patient is a 54-year-old female with a past medical history of type II, asthma, history of biliary stent placement, s/p cholecystectomy, history of kidney stones and pyelonephritis, who presented to the emergency room complaining of flank pain, fever and shaking chills. The patient was admitted In the ER, initial vitals blood pressure 130/87, heart rate 132, temperature 103.1 F. Saturating 96% on room air. Initial labs show leukocytosis, WBC 15,000, hemoglobin 12.9, platelets 230, sodium 139, potassium 3.0, lactic acid 2.1 which continue to uptrend, normal BUN and creatinine, the patient was admitted to the medical floor for treatment of sepsis secondary to pneumonia and UTI, initial imaging included CT abdomen and pelvis which showed bibasilar pneumonia, biliary stent in satisfactory position and nonobstructive right renal calculi with perinephric stranding on the right kidney. Patient was started on IV antibiotics for treatment of pyelonephritis, gallbladder ultrasound showed normal CBD, absent gallbladder. The patient continued to have fevers, was started on meropenem due to concern for resistant bacteria, as well as vancomycin was added later as patient continued to be febrile more than 48 hours after admission. Continue to trend lactic acid, patient received aggressive IV fluid resuscitation, urology was consulted due to concern for obstructing stone or hydronephrosis, recommended CT abdomen pelvis with stone protocol, which showed nonobstructing right renal calculi, no hydronephrosis was seen. Repeat blood cultures were ordered. Due to continued fever echocardiogram was ordered to rule out infective endocarditis, echocardiogram was negative for vegetations. The patient stayed afebrile for 48 hours, able to tolerate oral medications, ambulatory. Patient will be discharged on antibiotics. Instructions: -Please take antibiotics for 7 more additional days -please take the rest of your medication as prescribed -Please follow up with your primary care provider within one week of discharge,please have your PCP make a referral to a urologist. -If your symptoms worsen,please seek immediate medical attention and return to your nearest emergency room -If you do not have a primary care provider, you may follow up at the [facility] at [address] [place] [address] [address], [place] [address], #Sepsis, secondary to pyelonephritis #Pyelonephritis #Non-obstructing right renal calculi #Acute hypoxic respiratory failure, secondary to asthma exacerbation #Asthma exacerbation #Foc-[id number]-[id number] type 2 diabetes #MASLD #Biliary stent, status post cholecystectomy Plan of care discussed with Dr. Rolanda Randle PGY 3 Time Spent with Patient Time attestation: Total time spent providing and/or coordinating discharge services: Time spent: Greater than 30 minutes Exam Vital Signs Temp Pulse Resp BP Pulse Ox O2 Del Method O2 Flow Rate 97.2 F 72 18 144/85 H 94 L Room Air 2 11/27/24 12:00 11/27/24 12:11/27/24 12:11/27/24 12:11/27/24 12:11/27/24 12:11/26/24 23:39 Narrative Exam GENERAL: AAOx3. Normal mood and affect, cooperative HEENT: Normocephalic, atraumatic.? Pupils are equal and reactive.? Oral mucosa is moist. Patent Nares NECK: Supple, nontender, no thyromegaly, no meningismus, no JVD CHEST: Symmetrical, atraumatic, and with equal expansion , Nontender on palpation no deformity and no crepitus. CARDIOVASCULAR: Heart regular rhythm no murmur or gallop rub or extra beats. LUNGS: Clear to auscultation bilaterally with symmetrical chest rise.? No laboring tachypnea or wheezing. ABDOMEN: Soft, flat, nontender to palpation, no guarding or rebound tenderness.? There are no abnormal masses palpated.? Active and normal bowel sounds. EXTREMITIES: Nontender.? No edema.? No cyanosis. SKIN: Warm and dry, no jaundice or rashes noted. MUSCULOSKELETAL: No lumbar or midline bony tenderness.? No paraspinal muscle spasm or tenderness. NEURO: Cranial nerves II through XII grossly intact.? There is no focal neurologic deficits noted. Discharge Plan Plan Patient Disposition: HOME (Self Care) Care Plan Goals: Instructions: -Please take antibiotics for 7 more additional days -please take the rest of your medication as prescribed -Please follow up with your primary care provider within one week of discharge,please have your PCP make a referral to a urologist. -If your symptoms worsen,please seek immediate medical attention and return to your nearest emergency room -If you do not have a primary care provider, you may follow up at the [facility] at [facility] [address], [place] [address], Prescriptions/Referrals Prescriptions/Med Rec: New tamsulosin 0.4 mg Capsule 0.4 mg PO QDAY 15 Days Qty: 15 0RF amoxicillin-pot clavulanate 875-125 mg tablet 1 tab PO BID Qty: 14 0RF Continued levalbuterol tartrate [Xopenex HFA] 15 GM HFA aerosol inhaler 2 puff Inhalation Q4-6HRPRN Qty: 0 fluticasone propion-salmeterol [Advair HFA] 115-21 mcg/actuation Hfa Aerosol Inhaler 2 puff inhalation BID Qty: 0 albuterol sulfate 90 mcg/actuation Hfa Aerosol Inhaler 2 puff INHALATION Q6H PRN (Reason: Wheezing) hydrocodone-acetaminophen 5-325 mg tablet 1 tab PO Q6H MDD 4 PRN (Reason: pain (scale score 7-10)) Qty: 20 0RF ondansetron 4 mg tablet,disintegrating 4 mg PO Q8H PRN (Reason: nausea and vomiting) Qty: 20 0RF dicyclomine 20 mg tablet 20 mg PO TID PRN (Reason: abdominal pain) Qty: 30 0RF pantoprazole [Protonix] 40 mg tablet,delayed release (/EC) 40 mg PO QDAY Qty: 30 0RF cetirizine 10 mg tablet 10 mg PO DAILY Patient Comments: TOME 1 TABLETA POR VIA ORAL TODOS LOS DOTY Held Ozempic 0.25 mg or 0.5 mg (2 mg/3 mL) pen injector 0.25 mg SUBCUT .once a week Hold Instructions: Resume on 12/04/24. Follow up with PCP Referrals: No Primary/Family,Physician [Primary Care Provider] - Patient/Caregiver Discharge Instructions Education Materials: Anatomy of the Female Urinary Tract Print Language: English Stand Alone Forms: Ruthy Award Info., Patient Portal Info Letter Discharge Order Discharge Orders: Discharge (Routine); Ordered 11/27/24 Ordered By: Lady Randle Quality Discharge Quality Measures VTE prophylaxis
== END 2024-11-27 21:04 | disposition home or self-care (01) | DRG 720 ==
LOC: SERX 18:14 → SERHOLD 21:30 → S3SX 11-23 05:53
PROVIDERS: Nurse Practitioner Family; Student in an Organized Health Care Education/Training Program; Admitting Provider Student in an Organized Health Care Education/Training Program; Emergency Provider Emergency Medicine; Visit Provider Internal Medicine
DX: A41.51 Sepsis due to Escherichia coli [E. coli] (principal); R65.20 Severe sepsis without septic shock; E11.9 Type 2 diabetes mellitus without complications; N12 Tubulo-interstitial nephritis, not specified as acute or chronic; N20.0 Calculus of kidney; J18.9 Pneumonia, unspecified organism; J44.0 Chronic obstructive pulmonary disease with (acute) lower respiratory infection; E66.9 Obesity, unspecified; K21.9 Gastro-esophageal reflux disease without esophagitis; Z90.49 Acquired absence of other specified parts of digestive tract; E87.6 Hypokalemia; Z79.4 Long term (current) use of insulin; D64.9 Anemia, unspecified; N13.9 Obstructive and reflux uropathy, unspecified; J45.901 Unspecified asthma with (acute) exacerbation; J96.01 Acute respiratory failure with hypoxia; J44.1 Chronic obstructive pulmonary disease with (acute) exacerbation; Z79.85 Long-term (current) use of injectable non-insulin antidiabetic drugs; Z87.442 Personal history of urinary calculi; E80.6 Other disorders of bilirubin metabolism; Z68.39 Body mass index [BMI] 39.0-39.9, adult
CPT/HCPCS: 36415; 70450; 71045; 71250; 74176; 74177; 76705; 80048; 80053; 80202; 81001; 81025; 82248; 83036; 83605; 83690; 83735; 84100; 84145; 84484; 85025; 85610; 85652; 85730; 86140; 86331; 86635; 86703; 87040; 87077; 87086; 87186; 87400; 87634; 87651; 87811; 93005; 93225; 93306; 94640; 94664; 96361; 96365; 96366; 96367; 96375; 99285; A4649; J0131; J0456; J0696; J1644; J1815; J1885; J2185; J2270; J2405; J3370; J3373; J3475; J3480; J7030; J7050; J7999; Q9967; A9270

== ENCOUNTER → 2024-12-24 | Outpatient (CLI) | payer MEDICAID, SELFPAY ==
[2024-12-23 13:34] LABS: HCG Qualitative,Urine Negative
--- NOTE | 2024-12-24 12:00 | XR_ITS ---
Examination: CT left lower extremity without intravenous contrast, without contrast. 2-D sagittal reconstructions. 2-D coronal reconstructions. 3-D reconstructions. Date and time of exam: December 24, 2024 1213 hours INDICATIONS: Diagnosis unilateral primary osteoarthritis left knee left knee pain one year CTDI: vol (mGy):13 DLP: (mGycm):874 Technique: Multiple 1.25 mm axial sections of the left lower extremity without intravenous contrast have been obtained. 2-D sagittal and coronal reconstructions have been obtained. 3-D reconstructions have been obtained. Low dose protocols were performed. One or more of the following dose reduction techniques were used; automated exposure control, adjustment of the mA and/or KV according to patient size, use of iterative reconstruction technique. Findings: Mild left hip osteoarthritis No left hip fracture or dislocation Advanced left knee tricompartment osteoarthritis Severe narrowing medial joint space No fracture IMPRESSION: Advanced left knee tricompartment osteoarthritis
== END | disposition home or self-care (01) ==
LOC: CCTX 11:57
PROVIDERS: PCP Internal Medicine; Referring Provider Orthopaedic Surgery Adult Reconstructive Orthopaedic Surgery; Visit Provider Orthopaedic Surgery Adult Reconstructive Orthopaedic Surgery
DX: M17.12 Unilateral primary osteoarthritis, left knee (principal); Z32.00 Encounter for pregnancy test, result unknown
CPT/HCPCS: 73700; 81025

== ENCOUNTER 2025-01-28 09:55 | Outpatient (AMB) | payer MEDICAID, SELFPAY ==
--- NOTE | 2025-01-28 10:12 | PD.ORTHCLVIS ---
Vital signs 01/28/25 10:14 Height 1.63 m Height Method Stated Weight 97.664 kg Weight Measurement Method Standing Scale BMI 36.7 BP 142/88 H Blood Pressure Source Automatic Cuff Blood Pressure Location Left Upper Arm Position Sitting Respiration 18 Pulse 74 Pulse Source Monitor Temp 97.9 F Temp Source Temporal Artery Scan Pulse Oximetry (%) 97 Oxygen Delivery Method Room Air Med/Allergies Allergies & Medications Allergies No Known Allergies Allergy (Verified 01/28/25 10:14) Medication Reconciliation fluticasone propionate 115 mcg-salmeterol 21 mcg/actuation HFA inhaler (Advair HFA) 2 puff inhalation BID ##0 05/15/13 [History Confirmed 01/28/25] levalbuterol tartrate 45 mcg/actuation aerosol inhaler (Xopenex HFA) 2 puff inhalation Q4-6HRPRN #0 puffs 05/15/13 [History Confirmed 01/28/25] albuterol sulfate 90 mcg/actuation aerosol inhaler 2 puff inhalation Q6H PRN Wheezing 02/19/22 [History Confirmed 01/28/25] hydrocodone 5 mg-acetaminophen 325 mg tablet 1 tab PO Q6H PRN pain (scale score 7-10) #20 tabs 02/20/22 [Rx Confirmed 01/28/25] ondansetron 4 mg disintegrating tablet 4 mg PO Q8H PRN nausea and vomiting #20 tabs 06/29/24 [Rx Confirmed 01/28/25] cetirizine 10 mg tablet 10 mg PO DAILY 09/16/24 [History Confirmed 01/28/25] semaglutide 0.25 mg or 0.5 mg (2 mg/3 mL) subcutaneous pen injector (Ozempic) 0.25 mg subcut .once a week 09/16/24 [History Confirmed 01/28/25] Held on 11/26/24. Instructions: Resume on 12/04/24. Follow up with PCP dicyclomine 20 mg tablet 20 mg PO TID PRN abdominal pain #30 tabs 10/08/24 [Rx Confirmed 01/28/25] pantoprazole 40 mg tablet,delayed release (Protonix) 40 mg PO QDAY #30 tabs 10/08/24 [Rx Confirmed 01/28/25] amoxicillin 875 mg-potassium clavulanate 125 mg tablet 1 tab PO BID #14 tabs 11/27/24 [Rx Confirmed 01/28/25] Exam Exam Patient is in no acute distress and is cooperative with the examination today. Breathing is nonlabored. In no respiratory distress. Bilateral extremities were evaluated and demonstrates sensation intact to light touch. Palpable pedal pulses are present. No significant edema is present. Bilateral hips were examined. The patient has no pain with log roll of the hips. Internal rotation to 30 degrees and external rotation to 30 degrees is painless. Negative FADIR. The left knee was examined. The left knee is in [varus] alignment. Range of motion from [0-115] degrees. Knee is stable to varus and valgus as well as AP translation with <5mm. Patient has a [negative] McMurrays. There is [no] pain with patellofemoral compression and [no] crepitus noted. The knee is [tender] to palpation [medially]. The right knee was also examined. The right knee is in [varus] alignment. Range of motion from [0-120] degrees. Knee is stable to varus and valgus as well as AP translation with <5mm. Patient has a [negative] McMurrays. There is [no] pain with patellofemoral compression and [no] crepitus noted. The knee is [tender] to palpation [medially]. Patient has bilateral knee osteoarthritis with complete joint space obliteration medially. There is complete joint space obliteration medially Assessment and Plan Problem List (1) Degenerative arthritis of knee, bilateral: Status: Acute Plan: Patient is a pleasant 53-year-old male with bilateral knee pain and bilateral knee arthritis. We discussed nonoperative and operative options. Patient has severe arthritis on both knees with more symptoms on the left. She would like repeat injections on the right knee. The left knee is bothering her significantly and She is interested in surgery as she has failed conservative treatment. She has tried multiple injections, naproxen, anti-inflammatories. She has had 4 injections total. We will get her set up for surgery on the left Recommend knee cortisone injection as patient would like to proceed with conservative treatment at this time. The risks and benefits of the procedure were reviewed with the patient and patient gave verbal consent to continue with the procedure. Procedure: performed by Dr. Mccormack Using sterile technique the Right knee was thoroughly prepped with alcohol, and approximately 1 cc of Depo-Medrol 80mg/mL and 4 cc of 0.2% ropivacaine was injected without resistance into the medial tibial femoral joint space. The patient tolerated the procedure. The nature and purpose of the Left total knee replacement, alternative method(s) of treatment, the material risks involved, and the possibility of complications were fully explained to the patient. The patient does NOT have any of the following contraindications to TKA: - Active infection of the knee joint, OR - Active systemic bacteremia, OR - Active skin infection or open wound at surgical site, OR - Neuropathic arthritis, OR - Severe, rapidly progressive neurological disease, OR - Severe medical condition that makes risks of surgery outweigh the potential benefit The patient was told the most common risks and complications associated with a total knee replacement include, but are not limited to: blood clots in the leg, fatal pulmonary embolism, dislocation of the prosthesis, intraoperative and postoperative fractures of the femur or tibia, infection, failure of the prosthesis or grafting materials, complications from anesthesia, reactions to blood transfusions, postoperative leg length inequality, instability of the knee replacement, nerve damage or injury, vascular injury, delayed wound healing, infection, other injury or even . In addition, there are risks associated with anesthesia given during this operation. Also, the patient was told that after undergoing a total knee replacement there may still be persistent pain or disability. The patient was informed that the success of this operation in part depends upon the mechanical devices which are going to be implanted and that these devices can fail or malfunction, and may need to be repaired or replaced and there are no guarantees as to the longevity of this device or its parts and that it or its parts could fail prematurely. The patient was also notified that during the course of surgery, there may be a need to use bone graft from donors, and that any bone graft used will be carefully screened for communicable diseases, including AIDS, hepatitis, Ezequiel-Creutzfeldt, or other diseases, but despite the screening procedures, there is a small chance that they could contract one of these diseases. Finally, the patient was asked to follow completely and fully with all advice and recommended treatments, and that recovery and ultimate outcome are affected by their compliance with recommended treatment. We discussed the risks, benefits and treatment alternatives, and the patient is interested in proceeding with surgery. We will try to set this up as expeditiously as possible. Office Procedures GNS Level of Care Nursing/Assessment Patient Status: Established Patient Nursing Assessment/Reassesment: Medication Reconciliation, Update PMH in EMR and Vital Signs Coordination of Care: Complex Care and Chronic Disease 1-5, Education Complex Pt/Fam, Consent,records obtained, informed consent, Results/Orders obtained and Staff clarify orders Special Needs: Language special needs Established Patient Charge Established Patient Point Assignment: 95 Established Patient Point Charge: EP Level 3 (80-115) Surgical Proc/IM SQ injection Major Surgical Procedure: Yes (RIGHT KNEE INJECTION) Medication Given Medication Given Medication Given: Yes Documented Dose Given: 1 Route: Infiitration Medication Given Medication Given Medication Given: Yes Documented Dose Given: 4 Route: Infiitration Office Meds methylprednisolone acetate 80 mg/mL suspension for injection Performing Provider: Charlie Mccormack MD Performing Location: [facility] Administered by: Charlie Mccormack MD on 01/28/25 10:23 Dose Route Admin Location Dispensed Lot Number Expiration Date Package NDC NDC Pad Making Machine Operator 80 mg intra-articular 1 mL [id number] 10/16/26 [address]-9 [id number] [employer] ropivacaine (PF) 2 mg/mL (0.2 %) injection solution Performing Provider: Charlie Mccormack MD Performing Location: [facility] Administered by: Charlie Mccormack MD on 01/28/25 10:23 Dose Route Admin Location Dispensed Lot Number Expiration Date Package NDC NDC Pad Making Machine Operator 20 mL Infiltration 20 mL [id number] 06/18/27 69088-251-60 [id number] [facility] Intake Visit Data Collection New Patient or Established: Established Patient (seen at [facility] within 3 years) Reason for Visit:: R KNEE INJ/L KNEE SX Seen by Clinical Staff ONLY (RN/MA): No Verbal consent obtained for Telemed visit?: No Executive Cyber Leader Required: Yes PCP or OBGYN visit in last 3 months: Yes Hx Now: No Do You Feel Safe at Home: Yes Authorities Contacted: N/A Questionairres Past Medical History Past Medical History Have you ever been diagnosed with any of the following: Neurological Problems Seizures: No Cardiology Problems Congestive Heart Failure: No Edema: No Cellulitis: No Varicose Veins: No Respiratory Problems Chronic Obstructive Pulmonary Disease (COPD): No Asthma: Yes Pneumonia: Yes Smoking: No Smoking Exposure: No Stomache/Intestinal Problems Hepatitis: No Gall Bladder Disease: Yes Genital/Urinary Problems Renal Disease: No Reproductive Problems Previous Pregnancies: Yes Musculoskeletal Problems Arthritis: Yes Fractures: Yes (RIGHT HAND HAS METAL) Endocrine Problems Diabetes Mellitus Type 1: No Diabetes Mellitus Type 2: Yes Blood Problems Sickle Cell Disease: No Other Problems Hospitalization: Yes Shingles: No Falls: No Blood Transfusions: No Blood Transfusion Reaction: No Anesthesia Reactions: No Chemotherapy: No MRSA: No Chicken Pox: No Measles: No Mumps: No Cancer: No Surgical History Pacemaker: No Subjective Visit Visit for: follow up visit, knee (RIGHT) and injections Immunization / Flu Flu Vaccine in the Last 12 Months: No Flu Vaccine Exclusion Criteria: No Exclusion Criteria History of Present Illness Chief complaint: RIGHT KNEE INJ/L KNEE SX Patient is a pleasant 54-year-old female with bilateral knee pain and bilateral knee arthritis of significant severity. She had injections at the last visit and that lasted for more than 3 months. She would like new injection today on the right. The pain is miserable and she would like to start the surgery process on the left. She has tried naproxen, multiple injections, diclofenac cream, and home exercises. Personal History Red flag PMH: BMI BMI Counceling provided: Yes Pain Pain level (0-10): 5 (RIGHT KNEE) Pain duration: all day Pain location: inside (medial), outside (lateral), anterior and posterior Pain quality: sharp, dull and aching Pain timing: increases with activity Ambulatory data Ambulatory device: none Treatments Number of previous injections: 2 Improvement with previous injections: Yes Improvement with PT: No Improvement with NSAIDS: no Review of Systems Review of Systems: All systems negative unless otherwise noted in HPI.
[2025-01-28 10:14] VITALS: BP 142/88; PULSE 74; RESP 18; TEMP 36.6; O2SAT 97; BMI 36.7
== END 2025-01-28 10:31 | disposition home or self-care (01) ==
LOC: HODSRG 09:55
PROVIDERS: PCP Internal Medicine; Referring Provider Internal Medicine; Supervising Provider Orthopaedic Surgery Adult Reconstructive Orthopaedic Surgery; Visit Provider Orthopaedic Surgery Adult Reconstructive Orthopaedic Surgery
DX: M17.0 Bilateral primary osteoarthritis of knee (principal); M25.562 Pain in left knee; M25.561 Pain in right knee; E11.9 Type 2 diabetes mellitus without complications
CPT/HCPCS: 20610; 99213; J1010; J2795; G0463

== ENCOUNTER → 2025-02-11 | Outpatient (CLI) | payer MEDICAID, SELFPAY ==
--- NOTE | 2025-02-11 10:16 | XR_ITS ---
Examination: CT left lower extremity, without contrast. 2-D sagittal reconstructions. 2-D coronal reconstructions. 3-D reconstructions. Date and time of exam:February 11, 2025, 1250 hours INDICATIONS: Diagnosis left knee primary unilateral osteoarthritis, knee pain several years CTDI: vol (mGy):11.8 DLP: (mGycm):879 Technique: Multiple 1.25 mm axial sections of the left lower extremity without intravenous contrast have been obtained. 2-D sagittal and coronal reconstructions have been obtained. 3-D reconstructions have been obtained. Low dose protocols were performed. One or more of the following dose reduction techniques were used; automated exposure control, adjustment of the mA and/or KV according to patient size, use of iterative reconstruction technique. Findings: Significant osteopenia Mild to moderate narrowing left hip joint No left hip fracture or dislocation Severe left knee tricompartment osteoarthritis Severe narrowing medial joint space No fracture or patellar dislocation IMPRESSION: Severe left knee tricompartment osteoarthritis
== END | disposition home or self-care (01) ==
PROVIDERS: PCP Internal Medicine; Referring Provider Orthopaedic Surgery Adult Reconstructive Orthopaedic Surgery; Visit Provider Orthopaedic Surgery Adult Reconstructive Orthopaedic Surgery
DX: M17.12 Unilateral primary osteoarthritis, left knee (principal)
CPT/HCPCS: 73700

== ENCOUNTER 2025-02-17 05:30 | Day surgery (SDC) | payer MEDICAID, SELFPAY ==
[2025-02-12 08:15] VITALS: BMI 35.9
[2025-02-12 10:16] LABS: Basophils # (Auto) 0.0 Thou/mm3 (0.0-0.2); Basophils % (Auto) 0 % (0-2.5); Eosinophils # (Auto) 0.1 Thou/mm3 (0.0-0.5); Eosinophils % (Auto) 2 % (0-10); Hematocrit 37.9 % (36.0-46.0); Hemoglobin 12.1 g/dL (12.0-16.0); Immature Granulocytes Auto 0.02 Thou/mm3 (0.00-0.00); Lymphocytes # (Auto) 2.1 Thou/mm3 (1.0-4.8); Lymphocytes % (Auto) 31 % (10-50); Mean Corpuscular HGB Conc 31.9 g/dl (31.0-37.0); Mean Corpuscular Hemoglobin 28.7 pg (25.0-35.0); Mean Corpuscular Volume 90 fL (80-100); Monocytes # (Auto) 0.4 Thou/mm3 (0.0-0.8); Monocytes % (Auto) 5 % (0-12); Neutrophils # (Auto) 4.1 Thou/mm3 (1.8-7.7); Neutrophils % (Auto) 61 % (37-80); Nucleated Red Blood Cell # 0.00 Thou/mm3 (0.00-0.00); Nucleated Red Blood Cell % 0 /100 WBC (0); Platelet Count 260 Thou/mm3 (140-440); RDW Standard Deviation 43.9 fL (36.4-46.3); Red Blood Count 4.21 Miln/mm3 (4.00-5.20); White Blood Count 6.7 Thou/mm3 (3.6-11.0)
[2025-02-12 10:26] LABS: INR 1.0 (0.9-1.3); Partial Thromboplastin Time 30.0 Seconds (22.0-36.0); Prothrombin Time 10.7 Seconds (9.0-12.2)
[2025-02-12 10:30] LABS: Alanine Aminotransferase 12 U/L (10-49); Albumin, Serum 4.3 gm/dL (3.5-5.0); Albumin/Globulin Ratio 1.3 (1.2-2.2); Alkaline Phosphatase 88 U/L (46-116); Anion Gap 12 (7-16); Aspartate Amino Transferase 12 U/L (0-34); BUN/Creatinine Ratio 10 Ratio (12-20); Bilirubin,Total 0.4 mg/dL (0.3-1.2); Blood Urea Nitrogen 8 mg/dL (9-23); Calcium 9.5 mg/dL (8.3-10.6); Calcium (Corrected) 9.5 mg/dL (8.5-10.1); Carbon Dioxide 24.7 mMol/L (20.0-31.0); Chloride 106 mMol/L (98-107); Creatinine (Component) 0.8 mg/dL (0.6-1.3); Estimated Creatinine Clearance 89.9 mL/min (>60); Globulin 3.3 gm/dL (2.3-3.5); Glucose 143 mg/dL (74-106); Osmolality,Calculated 285 (275-295); Potassium 3.3 mMol/L (3.4-5.1); Sodium 143 mMol/L (136-145); Total Protein 7.6 gm/dL (5.7-8.2); eGFR > 60 See Note
[2025-02-17] VITALS (15 sets, daily range): BP systolic 103–143; BP diastolic 66–77; PULSE 68–101; RESP 16–20; TEMP 36.4–36.6; O2SAT 95–100; BMI 39.9; BMI 13.0
[2025-02-17] MEDS: ACETAMINOPHEN 325 MG TABLET 650 MG PO (06:31)
[2025-02-17] MEDS: PREGABALIN 75 MG CAPSULE PO (06:32)
[2025-02-17] MEDS: MELOXICAM 7.5 MG TABLET PO (06:32)
--- NOTE | 2025-02-17 09:20 | PD.SUROPNT ---
Date of Procedure 02/17/25 Pre Op Diagnosis left knee osteoarthritis Post Op Diagnosis left knee osteoarthritis Procedure left total knee replacement rachel Findings full thickness cartilage loss and osteophytew Procedure Description Indication: The patient has a long history of left knee pain. X-rays show degenerative arthritis involving the knee. Over the past several years the patient has had increasing pain, progressive limitation in function. He has failed conservative measures including activity modification, physical therapy, injections, anti-inflammatories, and assistive devices. After a lengthy discussion of the risks and benefits, the patient presents now for total knee replacement. The nature and purpose of the total knee replacement, alternative method(s) of treatment, the material risks involved, and the possibility of complications were fully explained to the patient. The patient was told the most common risks and complications associated with a total knee replacement include, but are not limited to blood clots in the leg, fatal pulmonary embolism, dislocation of the prosthesis, intraoperative and postoperative fractures of the femur or tibia, infection, failure of the prosthesis or grafting materials, complications from anesthesia, reactions to blood transfusions, postoperative leg length inequality, instability of the knee replacement, nerve damage or injury, vascular injury, delayed wound healing, infections, other injury or even . In addition, there are risks associated with anesthesia given during this operation, temporary or permanent numbness on the skin lateral to the incision can be a complication unique to total knee surgery, and kneeling can be painful after knee replacement surgery. Also, the patient was told that after undergoing a total knee replacement there may still be pain or disability. We discussed with the patient that we will be using a robot-assisted technology. We discussed that there is a possibility of converting to manual instrumentation. The patient was informed that the success of this operation in part depends upon the mechanical devices which are going to be implanted and that these devices can fail or malfunction, and may need to be repaired or replaced and there are no guarantees as to the longevity of this device or its part and that it or its parts could fail prematurely. Finally, the patient was asked to follow completely and fully with all advice and recommended treatments, and that recovery and ultimate outcome are affected by their compliance with recommended treatment. Surgical technique: Patient was marked and consented in the pre-operative area. The patient was brought to the operating room and placed on the operating table in a supine position. Prior to positioning, a timeout procedure was performed between the surgeon, the anesthesiologist, and the nursing staff where the patient and the operative side were identified and confirmed. After adequate general anesthetic was obtained, the left lower extremity was prepped and draped in the usual sterile fashion. A weight based dose of Cefazolin were administered within 1 hour prior to incision. The robot was preregistered and calibrated before the incision. The extremity was exsanguinated with an esmarch badge and tourniquet inflated to 250mmHg. A midline incision was made. A median parapatellar arthrotomy was made. The patella was subluxed laterally. A medial release was performed to expose the medial tibia. His femoral and tibial pins were placed through an intra incisional manner for both cases. Every effort was made to ensure that the distalmost aspect of the pin was hung in the second cortex. The arrays were then tightened several times to ensure that it was fixed for the remainder of the case. Both femoral and tibial checkpoints were then placed. We then went through the registration process of the bone. We then assessed the knee deformity and attempted to correct it. We also used the robot to aid in judging laxity in both extension and flexion. Final based on laxity and alignment we changed the preoperative assessment to obtain proper proper implant positioning and to correct deformity. Attention was then placed to the tibia. We made a tibial cut using the robot ensuring that both the MCL and the patella tendon were protected with retractors. We then went to the femur and made the posterior cut followed by the anterior cut and the anterior chamfer. The bone was then removed and we made a distal femur cut and a posterior chamfer cut. We verified all cuts. A trial reduction was performed with a size 2 femoral component and a size 2 keeled tibial component. T The patella tracked centrally, and no lateral retinacular release was necessary. The trial implants were removed. The arrays, pins, and checkpoints were all removed. We performed a verification that all pins were removed. The cut bone surfaces were lavaged. A size 2 left femoral component, a size 2 keeled tibial component were impacted into position. The knee was felt to be well balanced in the sagittal and coronal plane. The final 2x10 mm cruciate-substituting articular insert was impacted into the tibial tray. The knee was brought out to full extension, flexed up to 120 degrees. It was stable to varus and valgus stress and appropriately balanced in flexion and extension. The wounds were copiously irrigated following deflation of tourniquet. The medial retinaculum was reapproximated with #1 vicryl and quill. The subcutaneous tissues were closed with 0 and 2-0 interrupted Vicryl. The skin was closed with 3-0 Monofilament V loc suture. A sterile dressing was applied. The patient was transferred to a bed and brought to recovery in stable condition. The patient tolerated the procedure well. There were no intraoperative complications. Sponge and needle counts were correct times 2. As the attending surgeon, Ellie catalan I was present and performed the entire operation. Grafts/Implants Size 2 CR Femur Size 2 Tibia 10mm poly CS Anesthesia spinal Implants [employer] Pathology / specimen None Estimated Blood Loss 150 Condition Stable Disposition same day Surgeon Charlie Mccormack MD Surgical Staff Operation Date: 02/17/25 07:45 Case Staff Anesthesiologist: Mike Mays RN First Assistant: Fe Og
--- NOTE | 2025-02-17 09:34 | XR_ITS ---
Examination: Left knee 2 views Technique one AP lateral left knee 2 views Date and time: February 17, 2025, 1019 hours INDICATIONS: Postop knee replacement FINDINGS: Total left knee arthroplasty. Satisfactory alignment. No fracture IMPRESSION: Total left knee arthroplasty with satisfactory alignment
--- NOTE | 2025-02-17 09:43 | SUR.PHASEI ---
0943: Pt. AAOx4, vitals stable, breathing unlabored, no complaint of pain or nausea, dressing to left knee CDI, no active bleed noted, pt. able to wiggle bilateral legs, cap refill to bilateral feet less than 3 seconds, bilateral dorsalis pedis pulses strong and regular, report recieved from Va BRITTON and MD Mays.
--- NOTE | 2025-02-17 11:11 | SUR.PHASEII ---
discharge instructions given to the pt. and her using Mildred (Aitchbone Breaker), pt. and her verbalized understanding and had no further questions.
[2025-02-17] MEDS: oxyCODONE HCL 5 MG IR TAB PO (12:50)
--- NOTE | 2025-02-17 12:57 | SUR.PHASEII ---
pt awake, alert, able to follow commands, breathing unlabored, dressing to left lower extremity clean, dry, and intact, VS stable, report from Maricarmen BRITTON
--- NOTE | 2025-02-17 12:57 | SUR.PHASEII ---
1257: Report given to Lisa Guerrero RN to resume care. Pt. AAOx4, vitals stable, breathing unlabored, dressing to left knee CDI.
--- NOTE | 2025-02-17 13:03 | SUR.PHASEII ---
Jeffery, Physical Therapist, at bedside
--- NOTE | 2025-02-17 13:29 | SUR.PHASEII ---
1329: Received report from Lisa Guerrero RN. Pt. tolerated walking with physical therapy well, pt. meets discharge criteria, waiting for pt. to dress to go home.
--- NOTE | 2025-02-17 13:40 | SUR.PHASEII ---
1340: Pt. AAOx4, vitals stable, breathing unlabored, no complaint of pain or nausea, dressing to left knee CDI, no active bleed noted, bilateral dorsalis pedis pulses strong and regular, pt. tolerated sips of water well, pt. transferred to wheelchair with steady gait and no assist, no complications. Pt. left with all personal belongings.
== END 2025-02-17 13:40 | disposition home or self-care (01) ==
PROVIDERS: Anesthesiology; PCP Internal Medicine; Referring Provider Orthopaedic Surgery Adult Reconstructive Orthopaedic Surgery; Visit Provider Orthopaedic Surgery Adult Reconstructive Orthopaedic Surgery
PROC: (CPT 20985; principal; 2025-02-17 07:30)
DX: M17.12 Unilateral primary osteoarthritis, left knee (principal)
CPT/HCPCS: 20985; 27447; 36415; 73560; 80053; 85025; 85610; 85730; 97162; A4217; A4649; C1713; C1776; J2704; J3490; J7999; A4648; A9270

== ENCOUNTER 2025-03-09 12:56 | Outpatient (AMB) | payer MEDICAID, SELFPAY ==
--- NOTE | 2025-03-09 13:21 | ORTHONT_ITS ---
Vital signs 03/09/25 13:22 Height 1.55 m Height Method Stated Weight 92.731 kg Weight Measurement Method Standing Scale BMI 38.6 BP 120/77 Blood Pressure Source Automatic Cuff Blood Pressure Location Right Upper Arm Position Sitting Respiration 19 Pulse 80 Pulse Source Monitor Temp 97.4 F Temp Source Temporal Artery Scan Pulse Oximetry (%) 95 Oxygen Delivery Method Room Air Med/Allergies Allergies & Medications Allergies No Known Allergies Allergy (Verified 03/09/25 13:23) Medication Reconciliation fluticasone propionate 115 mcg-salmeterol 21 mcg/actuation HFA inhaler (Advair HFA) 2 puff inhalation BID ##0 05/15/13 [History Confirmed 03/09/25] levalbuterol tartrate 45 mcg/actuation aerosol inhaler (Xopenex HFA) 2 puff inhalation Q4-6HRPRN #0 puffs 05/15/13 [History Confirmed 03/09/25] albuterol sulfate 90 mcg/actuation aerosol inhaler 2 puff inhalation Q6H PRN Wheezing 02/19/22 [History Confirmed 03/09/25] cetirizine 10 mg tablet 10 mg PO DAILY 09/16/24 [History Confirmed 03/09/25] semaglutide 0.25 mg or 0.5 mg (2 mg/3 mL) subcutaneous pen injector (Ozempic) 0.25 mg subcut .once a week 09/16/24 [History Confirmed 03/09/25] ciprofloxacin 0.3 %-dexamethasone 0.1 % ear drops,suspension 4 drp otic (ear) BID 02/12/25 [History Confirmed 03/09/25] empagliflozin 12.5 mg-metformin 1,000 mg tablet (Synjardy) 1 tab PO BID 02/12/25 [History Confirmed 03/09/25] naproxen 500 mg tablet 500 mg PO Q12H PRN pain 02/12/25 [History Confirmed 03/09/25] nitrofurantoin monohydrate/macrocrystals 100 mg capsule (Macrobid) 100 mg PO BID 02/12/25 [History Confirmed 03/09/25] potassium chloride 20 mEq tablet,extended release 20 meq PO DAILY 02/12/25 [History Confirmed 03/09/25] acetaminophen 500 mg tablet (Acetaminophen Extra Strength) 1,000 mg (2 x 500 mg) PO Q6H PRN pain #90 tabs 02/17/25 [Rx Confirmed 03/09/25] aspirin 81 mg tablet,delayed release 81 mg PO BID #60 tabs 02/17/25 [Rx Confirmed 03/09/25] doxycycline hyclate 100 mg tablet 100 mg PO BID #14 tabs 02/17/25 [Rx Confirmed 03/09/25] gabapentin 300 mg capsule 300 mg PO .qhs #30 caps 02/17/25 [Rx Confirmed 03/09/25] sennosides 8.6 mg-docusate sodium 50 mg tablet (Senna-S) 1 tab-cap PO QDAY #30 tabs 02/17/25 [Rx Confirmed 03/09/25] oxycodone 5 mg tablet 5 mg PO Q6H PRN pain #28 tabs 03/01/25 [Rx Confirmed 03/09/25] Exam Exam Patient is in no acute distress and is cooperative with the examination today. Breathing is nonlabored. Patient has a normal mood and affect. The patient has a gait that is nonantalgic Bilateral extremities were evaluated and demonstrates sensation intact to light touch. Palpable pedal pulses are present. No significant edema is present. Bilateral hips were examined. The patient has no pain with log roll of the hips. Internal rotation to 30 degrees and external rotation to 30 degrees is painless. Negative FADIR. Left knee incision is clean dry and intact. Knee feels stable varus valgus stress as well as AP translation Assessment and Plan Problem List (1) Status post total left knee replacement: Status: Acute Plan: Patient is doing well replacement. She has minimal pain. Will start her with physical therapy and we will see her back in 4 weeks Office Procedures GNS Level of Care Nursing/Assessment Patient Status: Established Patient Nursing Assessment/Reassesment: Medication Reconciliation, Update PMH in EMR and Vital Signs Coordination of Care: Complex Care and Chronic Disease 1-5, Education Complex Pt/Fam, Consent,records obtained, informed consent, 1 Ins Authorization, Results/Orders obtained and Staff clarify orders Special Needs: Language special needs Established Patient Charge Established Patient Point Assignment: 110 Established Patient Point Charge: EP Level 3 (80-115) MA Intake Visit Data Collection New Patient or Established: Established Patient (seen at [facility] within 3 years) Reason for Visit:: 2 WEEK POST OP LT TKA Seen by Clinical Staff ONLY (RN/MA): No Verbal consent obtained for Telemed visit?: No System Support Analyst Required: Yes PCP or OBGYN visit in last 3 months: Yes Hx Now: No Do You Feel Safe at Home: Yes Authorities Contacted: N/A Questionairres Past Medical History Past Medical History Have you ever been diagnosed with any of the following: Neurological Problems Seizures: No Cardiology Problems Congestive Heart Failure: No Edema: No Cellulitis: No Varicose Veins: Yes Respiratory Problems Chronic Obstructive Pulmonary Disease (COPD): No Asthma: Yes Pneumonia: Yes Smoking: No Smoking Exposure: No Stomache/Intestinal Problems Hepatitis: No Gall Bladder Disease: No Genital/Urinary Problems Renal Disease: No Kidney Stones: Yes Reproductive Problems Previous Pregnancies: Yes Musculoskeletal Problems Arthritis: Yes Fractures: Yes (RIGHT HAND HAS METAL) Head,Eye,Nose,Throat Problems Chronic Ear Infections: Yes (right ear infection applying ear drops) Endocrine Problems Diabetes Mellitus Type 1: No Diabetes Mellitus Type 2: Yes Blood Problems Sickle Cell Disease: No Other Problems Hospitalization: Yes (pneumonia 2 months ago) Shingles: No Falls: No Blood Transfusions: No Blood Transfusion Reaction: No Anesthesia Reactions: No Chemotherapy: No MRSA: No Chicken Pox: No Measles: No Mumps: No Cancer: No Surgical History Pacemaker: No Subjective Visit Visit for: follow up visit and knee Immunization / Flu Flu Vaccine in the Last 12 Months: No Flu Vaccine Exclusion Criteria: No Exclusion Criteria History of Present Illness Chief complaint: 2 WEEK POST OP LT TKA Patient is a pleasant 54-year-old female with bilateral knee pain and bilateral knee arthritis of significant severity. She is status post total knee replacement. Patient is doing well Personal History Occupation: DISABLED Red flag PMH: none BMI Counceling provided: Yes Pain Pain level (0-10): 7 Pain duration: COMES AND GOES Pain location: inside (medial), outside (lateral) and anterior Pain quality: sharp, dull and aching Pain timing: increases with activity Associated signs & symptoms: numbness Ambulatory data Ambulatory device: walker Treatments Number of previous injections: 2 Improvement with previous injections: No Improvement with PT: No Improvement with NSAIDS: no Review of Systems Review of Systems: All systems negative unless otherwise noted in HPI.
[2025-03-09 13:22] VITALS: BP 120/77; PULSE 80; RESP 19; TEMP 36.3; O2SAT 95; BMI 38.6
== END 2025-03-09 13:40 | disposition home or self-care (01) ==
LOC: HODSRG 12:56
PROVIDERS: PCP Internal Medicine; Referring Provider Internal Medicine; Supervising Provider Orthopaedic Surgery Adult Reconstructive Orthopaedic Surgery; Visit Provider Orthopaedic Surgery Adult Reconstructive Orthopaedic Surgery
DX: Z47.1 Aftercare following joint replacement surgery (principal); Z96.652 Presence of left artificial knee joint; M17.12 Unilateral primary osteoarthritis, left knee; M25.562 Pain in left knee; M25.561 Pain in right knee
CPT/HCPCS: 99213; G0463

== ENCOUNTER 2025-03-19 11:05 | Outpatient (RCR) | payer MEDICAID, SELFPAY ==
--- NOTE | 2025-03-19 11:39 | PT.OIERPT ---
PT OP Initial Eval Patient Information Outpatient Physical Therapy Treatment Date: 03/19/25 Visit Reasons: post op left tka Medical Diagnosis: Left Knee OA Treatment Dx #1: Left Knee Pain Treatment Dx #2: Left Knee Mobility Deficits Start of Care: 03/19/25 Date of Onset: 02/17/25 Smoking Status Smoking Status: Never smoker Initial Assessment Subjective: Pt is a 54 y/o female s/p left TKA due to knee OA. Pt received a few sessions of homehealth PT. Pt still has pain (5/10) with activities. Pt has limitation with walking, standing, chores, self care, cooking, balance, stairs, and recreational activities. Objective: Left Knee AROM: -15 deg to 65 deg Left Knee PROM: -10 deg to 78 deg Left Knee MMTs: grossly 3-/5 Left Hip MMTs: grossly 3-/5 Active SLR: unable SLS: unable Assessment: Pt demonstrate left knee mobility and strength deficits s/p TKA leading to difficulty with ADLs. Pt will benefit from physical therapy to increase ROM, strength, and work on ambulation. 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 2) Increase left knee flexion AROM to 115 deg in 12 wks to be able to perform squatting activities 3) Decrease knee pain to 2/10 in 12 wks to be able to stand more than 30 mins 4) Increase left knee MMTs grossly to 4/5 in 12 wks to be able to perform stairs and steps 5) Increase left hip MMTs grossly to 4-/5 in 12 wks to be able to walk more than 30 mins 6) Indep with HEP Treatment Plan 1) Manual Therapy 2) Therapeutic Activities 3) Therapeutic Exercises 4) Modalities (ice, heat) 5) Balance Training 6) Gait Training Frequency and Duration: 2 x wk for 12 wks Certification Dates: 03/19/25 to 06/19/25 Procedure Charges OP PT Eval Mod Complex 30 minutes: Yes
== END 2025-03-19 23:59 | disposition home or self-care (01) ==
LOC: CPTX 11:05
PROVIDERS: PCP Orthopaedic Surgery Adult Reconstructive Orthopaedic Surgery; Referring Provider Orthopaedic Surgery Adult Reconstructive Orthopaedic Surgery; Visit Provider Orthopaedic Surgery Adult Reconstructive Orthopaedic Surgery
DX: M25.562 Pain in left knee (principal); R26.2 Difficulty in walking, not elsewhere classified; R26.89 Other abnormalities of gait and mobility; Z96.652 Presence of left artificial knee joint
CPT/HCPCS: 97162

== ENCOUNTER 2025-04-06 09:55 | Outpatient (AMB) | payer MEDICAID, SELFPAY ==
--- NOTE | 2025-04-06 10:22 | ORTHONT_ITS ---
Vital signs 04/06/25 10:38 Height 1.55 m Height Method Measured Weight 91.172 kg Weight Measurement Method Standing Scale BMI 37.9 BP 133/80 H Blood Pressure Source Automatic Cuff Blood Pressure Location Left Upper Arm Position Sitting Respiration 18 Pulse 70 Pulse Source Monitor Temp 97.5 F Temp Source Temporal Artery Scan Pulse Oximetry (%) 95 Oxygen Delivery Method Room Air Med/Allergies Allergies & Medications Allergies No Known Allergies Allergy (Verified 04/06/25 10:39) Medication Reconciliation fluticasone propionate 115 mcg-salmeterol 21 mcg/actuation HFA inhaler (Advair H FA) 2 puff inhalation BID ##0 05/15/13 [History Confirmed 04/06/25] levalbuterol tartrate 45 mcg/actuation aerosol inhaler (Xopenex HFA) 2 puff inhalation Q4-6HRPRN #0 puffs 05/15/13 [History Confirmed 04/06/25] albuterol sulfate 90 mcg/actuation aerosol inhaler 2 puff inhalation Q6H PRN Wheezing 02/19/22 [History Confirmed 04/06/25] cetirizine 10 mg tablet 10 mg PO DAILY 09/16/24 [History Confirmed 04/06/25] semaglutide 0.25 mg or 0.5 mg (2 mg/3 mL) subcutaneous pen injector (Ozempic) 0.25 mg subcut .once a week 09/16/24 [History Confirmed 04/06/25] ciprofloxacin 0.3 %-dexamethasone 0.1 % ear drops,suspension 4 drp otic (ear) BID 02/12/25 [History Confirmed 04/06/25] empagliflozin 12.5 mg-metformin 1,000 mg tablet (Synjardy) 1 tab PO BID 02/12/25 [History Confirmed 04/06/25] naproxen 500 mg tablet 500 mg PO Q12H PRN pain 02/12/25 [History Confirmed 04/06/25] nitrofurantoin monohydrate/macrocrystals 100 mg capsule (Macrobid) 100 mg PO BID 02/12/25 [History Confirmed 04/06/25] potassium chloride 20 mEq tablet,extended release 20 meq PO DAILY 02/12/25 [History Confirmed 04/06/25] acetaminophen 500 mg tablet (Acetaminophen Extra Strength) 1,000 mg (2 x 500 mg) PO Q6H PRN pain #90 tabs 02/17/25 [Rx Confirmed 04/06/25] aspirin 81 mg tablet,delayed release 81 mg PO BID #60 tabs 02/17/25 [Rx Confirmed 04/06/25] doxycycline hyclate 100 mg tablet 100 mg PO BID #14 tabs 02/17/25 [Rx Confirmed 04/06/25] gabapentin 300 mg capsule 300 mg PO .qhs #30 caps 02/17/25 [Rx Confirmed 04/06/25] sennosides 8.6 mg-docusate sodium 50 mg tablet (Senna-S) 1 tab-cap PO QDAY #30 tabs 02/17/25 [Rx Confirmed 04/06/25] oxycodone 5 mg tablet 5 mg PO Q6H PRN pain #28 tabs 03/01/25 [Rx Confirmed 04/06/25] acetaminophen 500 mg tablet (Acetaminophen Extra Strength) 1,000 mg (2 x 500 mg) PO Q6H PRN pain #90 tabs 03/25/25 [Rx Confirmed 04/06/25] oxycodone 5 mg tablet 5 mg PO Q6H PRN pain #28 tabs 03/25/25 [Rx Confirmed 04/06/25] Exam Exam Patient is in no acute distress and is cooperative with the examination today. Breathing is nonlabored. Patient has a normal mood and affect. The patient has a gait that is nonantalgic Bilateral extremities were evaluated and demonstrates sensation intact to light touch. Palpable pedal pulses are present. No significant edema is present. Bilateral hips were examined. The patient has no pain with log roll of the hips. Internal rotation to 30 degrees and external rotation to 30 degrees is painless. Negative FADIR. Left knee incision is clean dry and intact. Knee feels stable varus valgus stress as well as AP translation. ROM is 5-105 degrees Assessment and Plan Problem List (1) Status post total left knee replacement: Status: Acute Plan: Patient is doing well replacement. She has minimal pain. She should continue with PT and we will see her back in 6 weeks. She wants to talk about getting the other side done in 6 weeks Office Procedures GNS Level of Care Nursing/Assessment Patient Status: Established Patient Nursing Assessment/Reassesment: Medication Reconciliation, Update PMH in EMR and Vital Signs Coordination of Care: Complex Care and Chronic Disease 1-5, Education Complex Pt/Fam, Consent,records obtained, informed consent, Results/Orders obtained and Staff clarify orders Special Needs: Language special needs Established Patient Charge Established Patient Point Assignment: 95 Established Patient Point Charge: EP Level 3 (80-115) MA Intake Visit Data Collection New Patient or Established: Established Patient (seen at [facility] within 3 years) Reason for Visit:: 6 WEEK F/U POST OP LEFT TKA Seen by Clinical Staff ONLY (RN/MA): No Verbal consent obtained for Telemed visit?: No 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 PCP or OBGYN visit in last 3 months: Yes Hx Now: No Do You Feel Safe at Home: Yes Authorities Contacted: N/A Questionairres Past Medical History Past Medical History Have you ever been diagnosed with any of the following: Neurological Problems Seizures: No Cardiology Problems Congestive Heart Failure: No Edema: No Cellulitis: No Varicose Veins: Yes Respiratory Problems Chronic Obstructive Pulmonary Disease (COPD): No Asthma: Yes Pneumonia: Yes Smoking: No Smoking Exposure: No Stomache/Intestinal Problems Hepatitis: No Gall Bladder Disease: No Genital/Urinary Problems Renal Disease: No Kidney Stones: Yes Reproductive Problems Previous Pregnancies: Yes Musculoskeletal Problems Arthritis: Yes Fractures: Yes (RIGHT HAND HAS METAL) Head,Eye,Nose,Throat Problems Chronic Ear Infections: Yes (right ear infection applying ear drops) Endocrine Problems Diabetes Mellitus Type 1: No Diabetes Mellitus Type 2: Yes Blood Problems Sickle Cell Disease: No Other Problems Hospitalization: Yes (pneumonia 2 months ago) Shingles: No Falls: No Blood Transfusions: No Blood Transfusion Reaction: No Anesthesia Reactions: No Chemotherapy: No MRSA: No Chicken Pox: No Measles: No Mumps: No Cancer: No Surgical History Pacemaker: No Subjective Visit Visit for: follow up visit and knee Immunization / Flu Flu Vaccine in the Last 12 Months: No Flu Vaccine Exclusion Criteria: No Exclusion Criteria History of Present Illness Chief complaint: 6 WEEK POST OP LEFT TKA Patient is a pleasant 54-year-old female with bilateral knee pain and bilateral knee arthritis of significant severity. She is status post total knee replacement. Patient is doing well Personal History Occupation: DISABLED Red flag PMH: none BMI Counceling provided: Yes Pain Pain level (0-10): 5 Pain duration: COMES AND GOES Pain location: inside (medial), outside (lateral) and anterior Pain quality: sharp, dull and aching Pain timing: increases with activity Associated signs & symptoms: numbness Ambulatory data Ambulatory device: walker Treatments Number of previous injections: 2 Improvement with previous injections: No Improvement with PT: No Improvement with NSAIDS: no Review of Systems Review of Systems: All systems negative unless otherwise noted in HPI.
[2025-04-06 10:38] VITALS: BP 133/80; PULSE 70; RESP 18; TEMP 36.4; O2SAT 95; BMI 37.9
--- NOTE | 2025-04-06 10:40 | XR_ITS ---
EXAMINATION: Bilateral knees 2 views Right lateral knee left lateral knee 2 views Right axial knee left axial knee 2 views TECHNIQUE: Bilateral axial knees AP single view, bilateral PA knees standing single view flexion Standing bilateral knee left lateral knee 2 views Right axial knee left axial knee 2 views total 6 views Date and time: April 06, 2025, 1102 hours INDICATIONS: Left knee pain post surgery 6 weeks ago right knee pain 1 week. FINDINGS: Significant osteopenia Advanced right knee tricompartment osteoarthritis, including severe narrowing [id number] medial joint space right knee Total left knee arthroplasty. Satisfactory alignment. No loosening of the prosthetic components IMPRESSION: Advanced right knee tricompartment osteoarthritis including severe narrowing [id number] medial joint space right knee
== END 2025-04-06 10:45 | disposition home or self-care (01) ==
PROVIDERS: PCP Internal Medicine; Referring Provider Internal Medicine; Supervising Provider Orthopaedic Surgery Adult Reconstructive Orthopaedic Surgery; Visit Provider Orthopaedic Surgery Adult Reconstructive Orthopaedic Surgery
DX: Z47.1 Aftercare following joint replacement surgery (principal); Z96.652 Presence of left artificial knee joint; M25.562 Pain in left knee; M25.561 Pain in right knee; M17.11 Unilateral primary osteoarthritis, right knee
CPT/HCPCS: 73564; 99213; G0463

== ENCOUNTER 2025-04-13 10:00 | Outpatient (RCR) | payer MEDICAID, SELFPAY ==
--- NOTE | 2025-03-23 11:27 | PT.ODAYNRPT ---
PT Outpatient Daily Note OP Daily Note Outpatient Physical Therapy Treatment Date: 03/23/25 Visit Reasons: left knee surgery Subjective: Pt reports she has been doing some exercises at home. Pt daughter helps pt lift and lower L LE on/off bed. Objective: Please see flow sheet for ther ex list. Assessment: Pt instructed on updated HEP and educated on importance of early mobility and strengthening within post op protocol. Plan: Continue with poC. Length of Time (minutes) of Treatment: 30 Minutes Procedure Charges Therapeutic Exercise 30 minutes: Yes
--- NOTE | 2025-03-25 11:15 | PT.ODAYNRPT ---
PT Outpatient Daily Note OP Daily Note Outpatient Physical Therapy Treatment Date: 03/25/25 Visit Reasons: left knee surgery Subjective: Pt reports compliance with HEP. Objective: Please see flow sheet for ther ex list. Assessment: Performed PROM into knee flexion, minimal guarding allowing for increase range. Plan: Continue with poC. Length of Time (minutes) of Treatment: 30 Minutes Procedure Charges Therapeutic Exercise 30 minutes: Yes
--- NOTE | 2025-04-01 10:41 | PT.ODAYNRPT ---
PT Outpatient Daily Note OP Daily Note Outpatient Physical Therapy Treatment Date: 04/01/25 Visit Reasons: left knee surgery Subjective: Pt's left knee pain is less, however, has stiffness with bending. According to daughter Pt has been doing HEP daily. Objective: Left Knee Flexion AAROM: 90 deg Assessment: Pt is slowly progressing with knee ROM wit less pain reported. Pt was able to use sci fit and complete a few cycle for a few mins Plan: Continue with PT Length of Time (minutes) of Treatment: 30 Minutes Procedure Charges Therapeutic Exercise 30 minutes: Yes
--- NOTE | 2025-04-06 11:47 | PT.ODAYNRPT ---
PT Outpatient Daily Note OP Daily Note Outpatient Physical Therapy Treatment Date: 04/06/25 Visit Reasons: left knee surgery Subjective: Pt has seen surgeon and encourage her to bend her knee. Pt mentioned she continues to have pain leading to difficulty with leg movement with bed mobility and walking. Objective: Left Knee AAROM: 95 deg Assessment: Pt exhibit slow progress with knee ROM due to pain and poor tolerance to passive stretching Plan: Continue with PT Length of Time (minutes) of Treatment: 30 Minutes Procedure Charges Therapeutic Exercise 30 minutes: Yes
--- NOTE | 2025-04-08 12:02 | PT.ODAYNRPT ---
PT Outpatient Daily Note OP Daily Note Outpatient Physical Therapy Treatment Date: 04/08/25 Visit Reasons: left knee surgery Subjective: Pt reports progress with knee, although it is still painful and swollen notice it getting stronger and flexibility is improving. Objective: Please see flow sheet for ther ex list. Assessment: Pt educated and instructed to continue with HEP. Continued focus on restoring ROM and strength. Plan: Continue with POC. Length of Time (minutes) of Treatment: 30 Minutes Procedure Charges Therapeutic Exercise 30 minutes: Yes
--- NOTE | 2025-04-13 11:34 | PT.ODAYNRPT ---
PT Outpatient Daily Note OP Daily Note Outpatient Physical Therapy Treatment Date: 04/13/25 Visit Reasons: left knee surgery Subjective: Pt reports L knee is doing ok, feels progress but slow. Pt mentioned that her knee continues to buckle and is fearful of falling. Objective: Please see flow sheet for ther ex list. Assessment: Progressing interventions per post op protocol. Recommended pt continue use of FWW due to report of knee buckling to reduce fall risk, pt agreed. Plan: Continue with POC. Length of Time (minutes) of Treatment: 30 Minutes Procedure Charges Therapeutic Exercise 30 minutes: Yes
== END 2025-04-18 23:59 | disposition home or self-care (01) ==
LOC: CPTX 10:00
PROVIDERS: PCP Orthopaedic Surgery Adult Reconstructive Orthopaedic Surgery; Referring Provider Orthopaedic Surgery Adult Reconstructive Orthopaedic Surgery; Visit Provider Orthopaedic Surgery Adult Reconstructive Orthopaedic Surgery
DX: Z47.1 Aftercare following joint replacement surgery (principal); Z96.652 Presence of left artificial knee joint; M25.562 Pain in left knee; R26.2 Difficulty in walking, not elsewhere classified; R26.89 Other abnormalities of gait and mobility
CPT/HCPCS: 97110

== ENCOUNTER 2025-05-19 09:30 | Outpatient (RCR) | payer MEDICAID, SELFPAY ==
--- NOTE | 2025-04-19 12:49 | PTNOTE_ITS ---
PT Outpatient Daily Note OP Daily Note Outpatient Physical Therapy Treatment Date: 04/19/25 Visit Reasons: left knee surgery Subjective: Pt's knee is better. Pt is starting to walk more inside the house without the walker. Pt still notice knee buckling with ambulation 3-4 x weekly Objective: Left Knee Flexion AROM: 95 deg Assessment: Pt is progressing with knee flexion AROM. Progress patient to 4 step up. Cues to decrease of hands to engage left LE more when stepping up on to the step. 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
--- NOTE | 2025-04-22 12:56 | PT.ODAYNRPT ---
PT Outpatient Daily Note OP Daily Note Outpatient Physical Therapy Treatment Date: 04/22/25 Visit Reasons: left knee surgery Subjective: Pt reports L knee is doing ok but lately has been dealing with increase pain on R knee. Objective: Please see flow sheet for the juan list. 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 Pt also demonstrates forward stooped posture, requires frequent cues to correct posture. Plan: Continue with POC. Length of Time (minutes) of Treatment: 30 Minutes Procedure Charges Therapeutic Exercise 30 minutes: Yes
--- NOTE | 2025-04-28 09:55 | PT.ODAYNRPT ---
PT Outpatient Daily Note OP Daily Note Outpatient Physical Therapy Treatment Date: 04/28/25 Visit Reasons: left knee surgery Subjective: Pt reports knee is swollen and has been hurting more lately, feels it is due to cold weather. Pt mentioned that she is no longer using FWW. Objective: Pleaes see flow sheet for ther ex list. Assessment: Pt ambulating in clinic with no AD antalgic gait pattern but no LOB. Plan: Continue with poC. Length of Time (minutes) of Treatment: 30 Minutes Procedure Charges Therapeutic Exercise 30 minutes: Yes
--- NOTE | 2025-04-30 09:56 | PT.ODAYNRPT ---
PT Outpatient Daily Note OP Daily Note Outpatient Physical Therapy Treatment Date: 04/30/25 Visit Reasons: left knee surgery Subjective: Pt's knee is better. Pt has wean off the walker and will be buying a cane soon. Objective: Please see flow chart for list of ther ex performed Assessment: progressing with closed chain exercises with less pain reported. Pt also demonstrate less guarding with passive knee flexion stretch Plan: Continue with PT Length of Time (minutes) of Treatment: 30 Minutes Procedure Charges Therapeutic Exercise 30 minutes: Yes
--- NOTE | 2025-05-04 10:51 | PT.ODAYNRPT ---
PT Outpatient Daily Note OP Daily Note Outpatient Physical Therapy Treatment Date: 05/04/25 Visit Reasons: left knee surgery Subjective: Pt reports she is in a lot of pain today, did a lot of walking on Saturday to the point where she had to go sit in her car due to how fatigued she was. Objective: Please see flow sheet for ther ex list. Assessment: Regressed interventions to accommodate reported pain and complaints. Plan: Continue with POC. Length of Time (minutes) of Treatment: 30 Minutes Procedure Charges Therapeutic Exercise 30 minutes: Yes
--- NOTE | 2025-05-07 10:38 | PT.ODAYNRPT ---
PT Outpatient Daily Note OP Daily Note Outpatient Physical Therapy Treatment Date: 05/07/25 Visit Reasons: left knee surgery Subjective: Pt's knee is better. Pt does not have any concerns. Objective: Please see flow chart for list of ther ex performed Assessment: tolerate exercises with minimal pain Plan: Continue with PT Length of Time (minutes) of Treatment: 30 Minutes Procedure Charges Therapeutic Exercise 30 minutes: Yes
--- NOTE | 2025-05-19 10:22 | PT.ODAYNRPT ---
PT Outpatient Daily Note OP Daily Note Outpatient Physical Therapy Treatment Date: 05/19/25 Visit Reasons: left knee surgery Subjective: Pt reports L knee is sore today because she was going up and down steps and feels like she over did it. Pt also mentioned that lately it has been difficulty to get around due to R knee pain, will be following with surgon to deternmine when her surgery will be for R knee. Objective: Please see flow sheet for ther ex list. Assessment: Pt came in with c/o pain limiting participation. Plan: Continue with poC. Length of Time (minutes) of Treatment: 30 Minutes Procedure Charges Therapeutic Exercise 30 minutes: Yes
== END 2025-05-19 23:59 | disposition home or self-care (01) ==
LOC: CPTX 09:30
PROVIDERS: PCP Orthopaedic Surgery Adult Reconstructive Orthopaedic Surgery; Referring Provider Orthopaedic Surgery Adult Reconstructive Orthopaedic Surgery; Visit Provider Orthopaedic Surgery Adult Reconstructive Orthopaedic Surgery
DX: Z47.1 Aftercare following joint replacement surgery (principal); Z96.652 Presence of left artificial knee joint; M25.562 Pain in left knee; R26.2 Difficulty in walking, not elsewhere classified; R26.89 Other abnormalities of gait and mobility
CPT/HCPCS: 97110